=== PATIENT | female | born 1950 | race Caucasian/White ===

== ENCOUNTER 2019-10-24 08:42 | Outpatient (CLI) | payer MEDICARE, SELFPAY ==
--- NOTE | ~2019-10-24 | DEXA_ITS ---
Bone Density Report Name: Mouna Sahu Age: 69 Sex: Female Ethnicity: White Date of : 1950 Indication: postmenopausal; height loss; prior fracture; cancer; hysterectomy; Referring Provider: SANCHO CATHERINE Study: Bone densitometry was performed. Exam Date: October 24, 2019 Accession number: [id number] Bone Density: Region BMD T-score Z-score Classification AP Spine (L1-L4) 0.932 -1.0 1.0 Normal Femoral Neck (Left) 0.648 -1.8 -0.1 Osteopenia Total Hip (Left) 0.808 -1.1 0.3 Osteopenia Total Hip Bilateral Avg 0.825 -1.0 0.5 Osteopenia Femoral Neck (Right) 0.735 -1.0 0.7 Normal Total Hip (Right) 0.841 -0.8 0.6 Normal World Health Organization criteria for BMD impression classify patients as: Normal (T-score at or above -1.0), Osteopenia (T-score between -1.0 and -2.5), or Osteoporosis (T-score at or below -2.5). 10-year Fracture Risk(1): Major Osteoporotic Fracture 16% Hip Fracture 2.4% Reported Risk Factors: [place] (), Neck BMD=0.648, BMI=27.9, previous fracture (1) FRAX(R) Version 3.08. Fracture probability calculated for an untreated patient. Fracture probability may be lower if the patient has received treatment. Clinical Information Provided by Patient: Has had a low trauma fracture Has used the following medications: Vitamin D, Calcium Has the following medical conditions: Cancer, Hysterectomy Patient maximum height was 68 Menopause Age: 54 Drinks caffeinated beverages Onset of menses at age 13 Number of children 2 Impression: The patient has low bone mass, based on the Left Femoral Neck T-score. The patient has an estimated ten-year risk of hip fracture of 2.4% and an estimated ten-year risk of major fracture of 16%, based on the WHO FRAX algorithm. The patient has risk factors, including: previous fracture. Discussion: BONE DENSITY IS LOW AT ONE OR MORE SKELETAL SITES. This patient's lowest T-score is low at one or more skeletal sites. It meets the World Health Organization's (WHO) criteria for ?low bone mass? (T-score between -1.0 and -2.5). The patient's 10-year risk of fracture as calculated by FRAX is less than the threshold where pharmacological therapy is recommended by the National Osteoporosis Foundation (NOF). However, all treatment decisions require clinical judgment and consideration of individual patient factors, including patient preferences, comorbidities, previous drug use, risk factors not captured in the FRAX model (e.g., frailty, falls, vitamin D deficiency, increased bone turnover, interval significant decline in bone density) and possible under or overestimation of fracture risk by FRAX. The patient should follow a healthful lifestyle (good nutrition with adequate calcium and vitamin D, and appropriate weight-bearing exercise). Follow-Up: [facility]
--- NOTE | ~2019-10-24 | MM_ITS ---
EXAMINATION: MM scrn debbie implant LT w crystal HISTORY: Screening mammogram TECHNIQUE: Craniocaudal and mediolateral oblique 3-D tomosynthesis images with implant displacement a nd synthetic 2-D images were generated. Craniocaudal and mediolateral oblique views of the left breas t without implant displacement were obtained using full field digital mammography. CAD analysis was s ubmitted and interpreted. COMPARISON: Comparison to multiple prior studies sequentially, with oldest reviewed study dated 12/2015. BREAST PARENCHYMAL COMPOSITION: There are scattered areas of fibroglandular density. FINDINGS: There is a subpectoral silicone implant. There is no evidence of suspicious mass, calcifica tion, or architectural distortion to suggest malignancy in either breast. There has been no suspiciou s interval change. IMPRESSION: 1. No mammographic evidence of malignancy. 2. Recommend routine screening mammography in one year. BI-RADS Category 1: Negative Reviewed, dictated and finalized at location A. 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
== END 2019-10-24 08:43 | disposition home or self-care (01) ==
PROVIDERS: PCP Family Medicine; Visit Provider Obstetrics & Gynecology Gynecology
DX: Z12.31 Encounter for screening mammogram for malignant neoplasm of breast (principal); Z78.0 Asymptomatic menopausal state; M85.89 Other specified disorders of bone density and structure, multiple sites
CPT/HCPCS: 77063; 77067; 77080

== ENCOUNTER 2020-03-03 14:29 | Outpatient (CLI) | payer MEDICARE, SELFPAY ==
--- NOTE | ~2020-03-03 | MR_ITS ---
EXAMINATION: MR knee LT wo con DATE: 03/03/2020 15:34 INDICATION: Unilateral primary osteoarthritis, left knee. TECHNIQUE: Magnetic resonance imaging (MRI) of the left knee was performed without intravenous contra st. Sequences included axial PD-weighted FS FSE, coronal PD-weighted FSE and PD-weighted FS FSE, sagi ttal PD-weighted FSE, and sagittal T2-weighted FS FSE. COMPARISON: Left knee radiographs 01/14/2020 FINDINGS: Medial compartment: There is a horizontal tear of posterior horn of medial meniscus. There is cartilage surface irregular ity of tibial condyle. There is shallow partial-thickness cartilage loss of femoral condyle involving the medial, central, lateral, and posterior articular surface. Lateral compartment: Lateral meniscus is normal. There is shallow partial-thickness cartilage loss of tibial condyle invol ving the medial and central articular surface. There is cartilage surface irregularity of femoral con dyle. Patellofemoral compartment: There is near full-thickness cartilage loss of patellar medial facet, median ridge, and medial aspect of lateral facet. There is full-thickness cartilage loss of central and medial trochlea. Ligaments and tendons: The anterior and posterior cruciate ligaments are normal. There are changes of prior sprains of media l collateral ligament and fibular collateral ligament characterized by thickening and increased signa l intensity proximally. The patellar tendon is normal. Fluid: There is a small knee joint effusion. There is a small Cramer's cyst. There is mild prepatellar bursit is. IMPRESSION: 1. Severe chondrosis of patellofemoral compartment and mild chondrosis of medial and lateral compartm ents. 2. Tear of medial meniscus. 3. Small knee joint effusion. 4. Small Cramer's cyst. Reviewed, dictated and finalized at location A. IMPRESSION: 1. Severe chondrosis of patellofemoral compartment and mild chondrosis of media l and lateral compartments. 2. Tear of medial meniscus. 3. Small knee joint effusion. 4. Small Cramer's cyst.
== END 2020-03-03 14:30 | disposition home or self-care (01) ==
PROVIDERS: PCP Family Medicine; Visit Provider Orthopaedic Surgery
DX: M17.12 Unilateral primary osteoarthritis, left knee (principal); M25.462 Effusion, left knee; M71.22 Synovial cyst of popliteal space [Baker], left knee; S83.242A Other tear of medial meniscus, current injury, left knee, initial encounter; X58.XXXA Exposure to other specified factors, initial encounter
CPT/HCPCS: 73721

== ENCOUNTER 2020-03-10 12:52 | Outpatient (CLI) | payer MEDICARE, SELFPAY ==
--- NOTE | 2020-03-10 12:54 | ECG_ITS ---
Measurements Intervals [place] Rate: 63 P: 26 [place]: 174 QRS: -23 QRSD: 85 T: 30 QT: 424 QTc: 435 Interpretive Statements SINUS RHYTHM RSR' IN V1 OR V2, CONSIDER RIGHT VENTRICULAR HYPERTROPHY OR RIGHT VCD LOW QRS VOLTAGE IN PRECORDIAL LEADS BASELINE ARTIFACT- II, III, AVL, AVF, V4-V6 BORDERLINE ECG Electronically Signed On 03-10-2020 13:33:48 CDT by Barak Connor D.O.
== END 2020-03-10 12:53 | disposition home or self-care (01) ==
LOC: ANHSURGERY 12:54
PROVIDERS: PCP Family Medicine; Visit Provider Orthopaedic Surgery
DX: E78.5 Hyperlipidemia, unspecified (principal); R94.31 Abnormal electrocardiogram [ECG] [EKG]
CPT/HCPCS: 93005

== ENCOUNTER 2020-03-13 01:04 | Outpatient (CLI) | payer MEDICARE, SELFPAY ==
[2020-03-13 20:05] LABS: SARS-CoV-2 RNA PCR Negative
== END 2020-03-13 01:05 | disposition home or self-care (01) ==
LOC: ANHCOVIDDT 01:05
PROVIDERS: Visit Provider Orthopaedic Surgery
DX: Z01.818 Encounter for other preprocedural examination (principal); Z11.59 Encounter for screening for other viral diseases
CPT/HCPCS: 87635; C9803; U0003

== ENCOUNTER 2020-03-16 00:49 | Day surgery (SDC) | payer MEDICARE, SELFPAY ==
[2020-03-09 13:37] VITALS: BMI 27.5
[2020-03-16] VITALS (8 sets, daily range): BP systolic 106–163; BP diastolic 63–78; PULSE 51–65; RESP 9–16; TEMP 36.2–36.5; O2SAT 98–100
[2020-03-16] MEDS: LACTATED RINGERS 1,000 ML 30 ML IV CONT ×2 (07:50→11:06)
[2020-03-16] MEDS: KETOROLAC 15 MG/ML VIAL (*BKC) IV PUSH (08:06)
[2020-03-16] MEDS: ACETAMINOPHEN 500 MG TABLET 1000 MG PO (08:06)
--- NOTE | 2020-03-16 08:07 | WPDANESEPPF ---
Anes - Initial Pre Proc Eval Procedure: Operation Date: 03/16/20 09:30 Proposed Procedures p Left Knee Arthroscopy, Meniscectomy - Derik Wheatley MD Date/Time: 03/16/20 08:07 Surgeon: Derik Wheatley MD Pre Op Diagnosis: Left Knee Medial Meniscal Tear Patient Data Age: 69 Gender: F Height: 1.68 m Weight: 79.3 kg Allergies Allergy/AdvReac Type Severity Reaction Status Date / Time No Known Drug Allergies Allergy Unknown Unknown Verified 03/16/20 07:28 Home Medications Medication Instructions Recorded Confirmed Type cholecalciferol (vitamin D3) 25 1,000 unit PO BID 07/30/19 03/16/20 History mcg (1,000 unit) capsule calcium 650 mg-vitamin D3 12.5 1 tablet PO BID 01/14/20 03/16/20 History mcg-vitamin K 40 mcg chewable tablet docusate sodium 100 mg tablet 100 mg PO DAILY 01/14/20 03/16/20 History multivitamin 1 tablet PO DAILY 01/14/20 03/16/20 History fluoxetine 20 mg capsule 20 mg PO QAM #90 cap 01/29/20 03/16/20 Rx atorvastatin 10 mg PO HS 03/09/20 03/16/20 History dextrin [Fiber (dextrin)] 2 tsp PO DAILY 03/09/20 03/16/20 History lorazepam 2 mg PO QAM PRN 03/09/20 03/16/20 History Patient hx anesthesia problems: none Family hx anesthesia problems: none PMFSH Past Medical History Medical History (Updated 03/16/20 @ 08:07 by Joseph Pompa DO) Anemia Anxiety BMI 26.0-26.9,adult BMI 27.0-27.9,adult Breast cancer Encounter for breast reconstruction following mastectomy Fallen bladder Hair thinning History of hysteroscopy Hyperlipidemia Vitamin D deficiency Surgical History Surgical History H/O dilation and curettage H/O thumb surgery H/O toe surgery H/O: hysterectomy History of mastectomy Hx of LASIK Hx of tonsillectomy Social History Social History Smoking status: Former smoker Second hand tobacco smoke exposure: No Smoking end date: 08/21/79 Additional smoking assessment comments: 1 1/2PK/DAY FOR 14 YRS, STOPPED 1979 Alcohol intake: never Substance use: never Substance use type: does not use Living arrangements: with family Additional living arrangements comments: [place] - Gender identity (if verbalized by the patient): Female Spiritual care concerns: No Anes - Eval Final PreProcedure Day of Procedure 03/16/20 08:07 Patient weight: overweight Heart: regular rate and rhythm Lungs: clear to auscultation and normal air movement Airway: Mallampati scale class II Neurological: alert and oriented Last oral intake: >/= 8 hours ASA classification: II Emergent: no Anesthetic plan: proceed Anesthesia type and monitoring: general LMA and standard monitoring Informed Consent: The patient's anesthetic plan and its attendant risks and benefits were discussed with the patient/family/POA. Questions were solicited and answers provided to the satisfaction of the patient/family/POA.
[2020-03-16] MEDS: FAMOTIDINE 20 MG/2 ML VIAL IV PUSH (08:12)
--- NOTE | 2020-03-16 09:07 | WPDHPUPDATE1 ---
History and Physical Update Update Date/Time: 03/16/20 09:07 History and Physical has been reviewed, including an updated exam of the patient. There are NO changes in the patient's condition. Risks, benefits, and alternatives have been discussed and questions answered. Patient agrees to proceed with procedure.
[2020-03-16] MEDS: ceFAZolin 2 GM/D5W 50 ML 2 GM/50 ML BAG IVPB (10:05)
--- NOTE | 2020-03-16 11:10 | P.OP_ITS ---
Procedure Note - Detailed Date of procedure: 03/16/20 Pre-op diagnosis: Left Knee Medial Meniscal Tear Post-op diagnosis: same Procedure performed: Left knee arthroscopy partial medial meniscectomy Description of procedure: The patient was identified and proper site identified. She was taken to the operating room and transferred to the OR table placing her supine taking care to pad her torso and extremities. After general anesthetic induction and intubation a nonsterile tourniquet was placed high on the left thigh but was not used. Left lower extremity was positioned, prepped and draped in usual sterile fashion. 10 cc of 1% lidocaine was injected into the subcutaneous tissue in the area of the portals at start of the procedure, and an additional 10 at the end. The portals were established and the arthroscopy was carried out. Articular cartilage in the anterior compartment showed grade 3 and four changes particularly at the proximal pole of the patella. Femoral trochlea had extensive grade 3 changes. Lateral articular me niscal cartilage was in good shape. Anterior posterior cruciate ligaments were in continuity. Extensive grade 2 changes noted the medial compartment on the femoral and tibial side. The medial meniscus had complex tearing from the midbody into the posterior horn. The loose fibrillated cartilage was gently debrided with the shaver. Meniscus was contoured back to a stable rim with basket forceps and shaver. There was some focal inflamed synovium at the medial joint line which was debrided with the shaver and then the ArthroCare Wand used for hemostasis. The knee was flushed with a copious amount of arthroscopic fluid and equipment was removed. Portals were closed with three O nylon suture and a sterile dressing was applied. She tolerated the procedure well. She was awakened, extubated and taken to recovery area in stable condition. There were no known intraoperative complications. Estimated blood loss was negligible. She received perioperative antibiotics. Anesthesia: GLMA Surgeon: Derik Whaetley MD Estimated blood loss (mL): 10 Tourniquet time (min): 0 Drains: No Packing: No Pathology: none sent Complications: No immediate complications Condition: stable Disposition: PACU
== END 2020-03-16 12:46 | disposition home or self-care (01) ==
PROVIDERS: Visit Provider Orthopaedic Surgery
PROC: (CPT 29870; principal; 2020-03-16 09:30)
DX: M23.332 Other meniscus derangements, other medial meniscus, left knee (principal); M94.262 Chondromalacia, left knee; E55.9 Vitamin D deficiency, unspecified; F41.9 Anxiety disorder, unspecified; Z85.3 Personal history of malignant neoplasm of breast; Z87.891 Personal history of nicotine dependence
CPT/HCPCS: 29881; 87635; A9270; C9803; J0690; J1100; J1885; J2250; J2405; J2704; J3010; J7120; U0003

== ENCOUNTER 2020-03-26 12:30 | Outpatient (RCR) | payer MEDICARE, SELFPAY ==
--- NOTE | 2020-03-18 14:25 | PTOPEVAL ---
Thank you for referring Mouna Sahu to [facility]. Please review, sign, date and return this plan of care LINDA. Pt seen this day for initial evaluation following knee surgery on 03/16/20. She presents with impairments consistent with post surgery restriction of her knee. She requires additional skilled therapy 2-3x/wk x 4 wk. I agree with and certify that the following plan of care is medically necessary. Referring Physician Date Attending Provider: Derik Wheatley MD PT evaluation *PT Outpatient Evaluation Start: 03/18/20 13:19 Freq: Status: Active Protocol: Document 03/18/20 13:15 CAP (Rec: 03/18/20 13:48 CAP [id number]) Therapy Assessment Status Assessment Status Assessment Status Evaluation Outpatient Past Medical History Past Medical History Source of Past Medical History Patient,Recalled from Previous Visit, Confirmed with Patient /Family Neurological History Hx Neurological Disorders No Significant History Cardiovascular History Hx Hypercholesterolemia Yes Hx Other Cardiac Disorders Yes: PT DENIES CARDIAC SYMPTOMS - RIDES BIKES, AND WAS WALING 3 MILES DAY Respiratory History Hx Respiratory Disorders No Significant History Gastrointestinal History Hx Other Gastrointestinal Disorders Yes: CONSTIPATION Genitourinary History Hx Bladder Surgery Yes: SLING Musculoskeletal History Hx Arthritis Yes: GENERALIZED Hx Orthopedic Surgery Yes: s/p arthroscopic surgery left knee 03/16/20 Hx Other Musculoskeletal Disorders Yes: LT KNEE MEDIAL MENISCAL TEAR Hematological History Hx Hematological Disorders No Significant History Endocrine History Hx Endocrine Disorders No Significant History HEENT History Hx Tonsillectomy Yes Hx Other HEENT Disorders Yes: BILATERAL HEARING AIDS FOR TINNITIS Integumentary History Hx Skin Disorders No Significant History Reproductive History Hx Hysterectomy Yes Hx Mastectomy Yes: RT BREAST Psychosocial History Hx Anxiety Yes Hx Depression Yes Pain History History of Any Previous or Ongoing No Significant History Instance of Pain Anesthesia History Hx Anesthesia Reactions No Significant History Other History Hx Cancer Yes: RT BREAST Evaluation Information Problem Diagnosis left knee s/p arthroscopic surgery Onset 03/16/20 Cause torn meniscus Subjective Information She is s/p knee surgery. She Query Text:As Reported By Nathalia
--- NOTE | 2020-04-09 12:54 | PCPTNOTE ---
Per pt, her MD requested all therapy visits to be DC. Will DC pt at this time.
--- NOTE | 2020-04-09 12:55 | PCPTNOTE ---
Admitting Provider: Attending Provider: Derik Wheatley MD Patient:Mouna Sahu Date of :1950 Discharge Note Patient has not returned for any further treatments since 03/26/2020, therefore she will be discharged at this time. Discharge therapy per MD request. Patient?s initial visit was on 03/18/2020 13:15 and she had a total of 3 visits. The goals have been not met due to limited therapy visits. Thank you for referring this patient to [facility]. Please review, sign, date and return this discharge summary LINDA. I have been updated about the patient's current status and I agree with discharge from the above service at this time. Referring Physician Date
== END 2020-06-05 12:48 | disposition home or self-care (01) ==
LOC: ANHPT 12:30
PROVIDERS: Visit Provider Orthopaedic Surgery
DX: Z48.89 Encounter for other specified surgical aftercare (principal); Z98.890 Other specified postprocedural states
CPT/HCPCS: 97110; 97112; 97162; 97530

== ENCOUNTER 2020-04-10 08:12 | Outpatient (CLI) | payer MEDICARE, SELFPAY ==
--- NOTE | ~2020-04-10 | US_ITS ---
EXAMINATION: US arterial ankle brachial ind EXAM DATE: 04/10/2020 08:45 INDICATION: Bilateral foot tingling and numbness. Bilateral ankle pain. History of breast cancer. TECHNIQUE: Segmental pressures and plethysmographic and Doppler waveforms of the brachial and lower e xtremity arteries were obtained. There is no prior study for comparison. FINDINGS: Right and left brachial artery pressures of 116 mm Hg and 120 mm Hg, respectively, are concordant (no rmal difference <= 30 mmHg). RIGHT LEG: The ankle-brachial index (ASHLEY) is 1.24 (normal >= 0.9-1). The great toe-brachial index (TBI) is 0.92 (normal >= 0.65). The lower extremity ratios, segmental pressure gradients as follows; Dorsalis pedis: 1.23 (147 mmHg). Posterior tibial: 1.24 (149 mmHg). (Normal gradients <= 20-30 mmHg between adjacent levels on the same leg or the same levels on the two legs). Arterial waveforms are biphasic. LEFT LEG: The ankle-brachial index (ASHLEY) is 1.23 (normal >= 0.9-1). The great toe-brachial index (TBI) is 0.84 (normal >= 0.65). The lower extremity ratios, segmental pressure gradients as follows; Dorsalis pedis: 1.18 (141 mmHg). Posterior tibial: 1.23 (147 mmHg). (Normal gradients <= 20-30 mmHg between adjacent levels on the same leg or the same levels on the two legs). Arterial waveforms are biphasic. IMPRESSION: 1. Right ankle-brachial index 1.24, normal. 2. Left ankle-brachial index 1.23, normal. Reviewed, dictated and finalized at location B.
== END 2020-04-10 08:13 | disposition home or self-care (01) ==
PROVIDERS: PCP Family Medicine; Visit Provider Family Medicine
DX: I73.9 Peripheral vascular disease, unspecified (principal); R20.0 Anesthesia of skin; R20.2 Paresthesia of skin; M25.572 Pain in left ankle and joints of left foot; M25.571 Pain in right ankle and joints of right foot
CPT/HCPCS: 93922

== ENCOUNTER 2020-10-30 08:36 | Outpatient (CLI) | payer MEDICARE, SELFPAY ==
--- NOTE | ~2020-10-30 | MM_ITS ---
EXAMINATION: MM scrn debbie implant LT w crystal HISTORY: Screening mammogram TECHNIQUE: Craniocaudal and mediolateral oblique 3-D tomosynthesis images with implant displacement a nd synthetic 2-D images were generated. Craniocaudal and mediolateral oblique views of the breasts wi thout implant displacement were obtained using full field digital mammography. CAD analysis was submi tted and interpreted. COMPARISON: 10/24/2019, , 02/26/2018 left implant mammogram examinations BREAST PARENCHYMAL COMPOSITION: There are scattered areas of fibroglandular density. FINDINGS: Status post left augmentation mammoplasty. Status post right mastectomy. There is no evidence of suspicious mass, calcification, or architectural distortion to suggest malign ana in either breast. There has been no suspicious interval change. IMPRESSION: 1. No mammographic evidence of malignancy. 2. Recommend routine screening mammography in one year. BI-RADS Category 1: Negative Reviewed, dictated and finalized at location A. 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
== END 2020-10-30 08:37 | disposition home or self-care (01) ==
LOC: ANHIMG 08:37
PROVIDERS: PCP Family Medicine; Visit Provider Obstetrics & Gynecology Gynecology
DX: Z12.31 Encounter for screening mammogram for malignant neoplasm of breast (principal)
CPT/HCPCS: 77063; 77067

== ENCOUNTER 2021-05-28 01:33 | Day surgery (SDC) | payer MEDICARE, SELFPAY ==
[2021-05-19 08:53] VITALS: BMI 28.3
[2021-05-28] MEDS: LACTATED RINGERS 1,000 ML 30 ML IV CONT (06:40)
[2021-05-28 07:15] VITALS: BP 138/76; PULSE 96; RESP 16; TEMP 36.6; O2SAT 96
--- NOTE | 2021-05-28 07:18 | WPDHPUPDATE1 ---
History and Physical Update Update Date/Time: 05/28/21 07:18 History and Physical has been reviewed, including an updated exam of the patient. There are NO changes in the patient's condition. Risks, benefits, and alternatives have been discussed and questions answered. Patient agrees to proceed with procedure.
--- NOTE | 2021-05-28 07:19 | WPDANESEPPF ---
Anes - Initial Pre Proc Eval Procedure: Operation Date: 05/28/21 07:30 Proposed Procedures p Excision Lipoma Bilateral Ankles, - Tad Chandler JR, MD s Hammer Toe Repair Second Toe Right Foot with Flexor Tenotomy - Tad Chandler JR, MD Date/Time: 05/28/21 07:20 Surgeon: Tad Chandler JR, MD Pre Op Diagnosis: lipoma bilat ankles,hammer toe 2nd dig rt foot Patient Data Age: 71 Gender: F Height: 1.68 m Weight: 79.54 kg Allergies Allergy/AdvReac Type Severity Reaction Status Date / Time No Known Drug Allergies Allergy Unknown Unknown Verified 05/28/21 07:13 Home Medications Medication Instructions Recorded Confirmed Type cholecalciferol (vitamin D3) 25 1,000 unit PO BID 07/30/19 05/28/21 History mcg (1,000 unit) capsule multivitamin 1 tablet PO DAILY 01/14/20 05/28/21 History calcium carbonate 600 mg calcium 600 mg PO BID 08/05/20 05/28/21 History (1,500 mg) tablet lorazepam 1 mg tablet 1 mg PO TID PRN #90 tablet 12/11/20 05/28/21 Rx atorvastatin 10 mg tablet 10 mg PO HS #90 tablet 03/01/21 05/28/21 Rx fluoxetine 20 mg QAM 05/19/21 05/28/21 History Patient hx anesthesia problems: none Family hx anesthesia problems: none Results Review: All pre-operative results and documents have been reviewed as part of the pre-operative evaluation. [facility] Past Medical History Medical History (Updated 02/25/21 @ 10:54 by Familia Abad MD) Alopecia areata Anemia Anxiety BMI 26.0-26.9,adult BMI 27.0-27.9,adult Breast cancer Encounter for breast reconstruction following mastectomy Fallen bladder Hair thinning HTN (hypertension), benign Hypercalcemia Hyperkalemia Hyperlipidemia LDL goal <100 Kidney disease, chronic, stage III (moderate, EGFR 30-59 ml/min) Osteoarthritis of thoracic spine Overweight (BMI 25.0-29.9) Postmenopausal (~2003) Varicose veins of bilateral lower extremities with pain Vitamin D deficiency Surgical History Surgical History H/O dilation and curettage H/O thumb surgery H/O toe surgery H/O: hysterectomy History of hysteroscopy History of mastectomy Hx of LASIK Hx of tonsillectomy Status post arthroscopy of left knee surgery February 2020 Family History Family History Mother Family history of elevated blood lipids Asthma Thyroid disease Sibling Thyroid disease Father Alcoholism Son Anxiety Social History Social History (Updated 02/25/21 @ 10:37 by Erinn Holman [facility]) Smoking status: Former smoker Tobacco type: cigarettes Second hand tobacco smoke exposure: No Smoking end date: 08/21/79 Additional smoking assessment comments: STATES 1 1/2PK/DAY/14YRS-QUIT 1979 Alcohol intake: never Substance use: never Substance use type: does not use Living arrangements: with family Additional living arrangements comments: [place] - Gender identity (if verbalized by the patient): Female Spiritual care concerns: No Anes - Eval Final PreProcedure Day of Procedure 05/28/21 07:20 Patient weight: overweight Heart: regular rate and rhythm Lungs: clear to auscultation Airway: Mallampati scale class II Neurological: alert and oriented Last oral intake: >/= 8 hours ASA classification: III Emergent: no Anesthetic plan: proceed Anesthesia type and monitoring: general GIVS and standard monitoring Results Review: All pre-operative results and documents have been reviewed as part of the pre-operative evaluation. Informed Consent: The patient's anesthetic plan and its attendant risks and benefits were discussed with the patient/family/POA. Questions were solicited and answers provided to the satisfaction of the patient/family/POA.
[2021-05-28] MEDS: ceFAZolin 2 GM/D5W 50 ML 2 GM/50 ML BAG IVPB (07:24)
[2021-05-28] MEDS: BUPIVACAINE HCL 0.5% PF 30 ML VIAL 10 ML INFILTRATE (07:51)
[2021-05-28] MEDS: LIDOCAINE HCL 2% PF INJ 5 ML VIAL 10 ML INFILTRATE (07:53)
[2021-05-28 08:30] VITALS: BP 135/73; PULSE 70; RESP 16; O2SAT 94
--- NOTE | 2021-05-28 08:40 | W.PM.PROC2 ---
Procedure Note - Detailed Date of Procedure 05/28/21 Pre-op Diagnosis Painful lipoma bilateral ankles Hammer toe 2nd digit Right foot Post-op Diagnosis same Procedure Performed 1. Excision Lipoma bilateral ankle 2. Hammertoe repair 2nd digit right foot with flexor tenotomy Surgeon Tad Chandler JR, DPM Anesthesia MAC and local Description of Procedure PROCEDURE IN DETAIL: Under mild sedation, the patient was brought into the operating room, placed on the operating table in supine position. A pneumatic ankle tourniquet was placed about the patient's ankle. Following general anesthesia, a local anesthetic block was obtained about bilateral foot and ankle utilizing 20 cc of a 1:1 of 2% Lidocaine plain and 0.5% Marcaine plain. The foot was then scrubbed, prepped, and draped in the usual aseptic manner. An Esmarch bandage was then used to exsanguinate the patient's foot and the pneumatic calf tourniquet was then inflated bilaterally. Surgery began in the following manner: Attention was directed to the lateral aspect of the anterior lateral right ankle measuring 6cm in length The incision was continued deep down through the subcutaneous tissues using sharp and blunt dissection. All bleeders were cauterized as necessary. At this point, A large lipomatous mass was noted to the ankle it was excised with a rongeur and sent for gross and histopathology. No remnants of the mass were noted, I did protect the neurovascular structures. The operative site was flushed with copious amount of sterile saline. Finally, the subcutaneous structures were reapproximated with 4-0 Vicryl. Next, the skin was reapproximated and coapted utilizing 4-0 Monocryl in running subcuticular suture fashion technique. The exact procedure was duplicated for the left ankle. Next, I made a small 2mm incision with a 6400 blade along the contracted 2nd digit. The long flexor tendon was released. The contracture was reduced. The stab incision was closed with 4-0 Prolene. A band Aid was applied to the affected digit. Upon completion of the procedure, the incision was dressed with Steri-Strips, Adaptic, 4x4s, Kerlix, and Coban. The pneumatic calf tourniquet was then deflated and a prompt hyperemic response was noted to all digits of the foot. A surgical shoe was then applied to the affected lower extremity. It is important to note that Dr. Chandler was present throughout the procedure. The patient did very well with the procedure and the anesthesia. The patient was transferred to the recovery room with vital signs stable and vascular status intact to all toes of the foot. Following a period of postoperative monitoring, the patient will be discharged home on the following written and oral postoperative instructions: 1. Keep the dressing clean, dry, and intact. 2. The patient to be protected weight bearing with a surgical shoe. 3. The patient should ice and elevate the affected foot when at rest. 4. The patient should contact Dr. Chandler for all postop care and if any problems should arise. The patient will follow up in one week for the post op visit. 5. Prescriptions were written for Percocet 5/325, dispensed 40 to be taken 1 p.o. q.4-6 hours as needed for severe pain. Furthermore, the patient should take Aspirin 325 once daily for two weeks to prevent DVT. Estimated Blood Loss 1 Drains No Packing No Pathology yes Complications No immediate complications Condition stable Disposition same day
[2021-05-28 09:00] VITALS: BP 132/81; PULSE 59; RESP 16
[2021-05-28] MEDS: IBUPROFEN 400 MG TABLET PO (09:02)
== END 2021-05-28 09:18 | disposition home or self-care (01) ==
PROVIDERS: PCP Family Medicine; Visit Provider Podiatrist Foot & Ankle Surgery
PROC: (CPT 27632; principal; 2021-05-28 07:30)
PROC: (CPT 27632; 2021-05-28 07:30)
DX: D17.23 Benign lipomatous neoplasm of skin and subcutaneous tissue of right leg (principal); D17.24 Benign lipomatous neoplasm of skin and subcutaneous tissue of left leg; M20.41 Other hammer toe(s) (acquired), right foot; D64.9 Anemia, unspecified; E87.5 Hyperkalemia; I12.9 Hypertensive chronic kidney disease with stage 1 through stage 4 chronic kidney disease, or unspecified chronic kidney disease; N18.30 Chronic kidney disease, stage 3 unspecified; E55.9 Vitamin D deficiency, unspecified; Z87.891 Personal history of nicotine dependence; L63.9 Alopecia areata, unspecified
CPT/HCPCS: 27632; 27236; 28010; 88304; A9270; J0690; J1100; J2250; J2405; J2704; J3010; J7120

== ENCOUNTER 2021-11-10 09:54 | Outpatient (CLI) | payer MEDICARE, SELFPAY ==
--- NOTE | ~2021-11-10 | MM_ITS ---
EXAMINATION: MM scrn debbie implant LT w crystal HISTORY: Screening mammogram TECHNIQUE: Craniocaudal and mediolateral oblique 3-D tomosynthesis images with implant displacement a nd synthetic 2-D images were generated. Craniocaudal and mediolateral oblique views of the breasts wi thout implant displacement were obtained using full field digital mammography. CAD analysis was submi tted and interpreted. COMPARISON: No prior mammogram is available for comparison at this institution. BREAST PARENCHYMAL COMPOSITION: There are scattered areas of fibroglandular density. FINDINGS: History of right mastectomy for breast malignancy, 2003. Status post left augmentation mammoplasty. There is no evidence of suspicious mass, calcification, or architectural distortion to suggest malign ana in either breast. There has been no suspicious interval change. IMPRESSION: 1. No mammographic evidence of malignancy. 2. Recommend routine screening mammography in one year. BI-RADS Category 1: Negative Reviewed, dictated and finalized at location A.
== END 2021-11-10 09:55 | disposition home or self-care (01) ==
LOC: ANHIMG 09:55
PROVIDERS: PCP Family Medicine; Visit Provider Obstetrics & Gynecology Gynecology
DX: Z12.31 Encounter for screening mammogram for malignant neoplasm of breast (principal)
CPT/HCPCS: 77063; 77067

== ENCOUNTER 2022-11-03 00:37 | Day surgery (SDC) | payer MEDICARE, SELFPAY ==
[2022-10-24 14:07] VITALS: BMI 28.4
[2022-11-03 06:21] VITALS: BP 148/82; PULSE 70; RESP 20; TEMP 36.3; O2SAT 98; BMI 30.4
[2022-11-03] MEDS: LACTATED RINGERS 1,000 ML 150 ML IV CONT (06:29)
--- NOTE | 2022-11-03 07:29 | PM.HPGS ---
History of Present Illness History of Present Illness Consent: Risks, benefits, and alternatives have been discussed and questions answered. Patient agrees to proceed with procedure. Chief complaint: neoplasm screening Narrative: Mouna Sahu is a 72 year old female Presents for screening colonoscopy. Patient's current weight appetite bowel movements are normal. Patient denies abdominal pain. She has had no bleeding. Family history noncontributory. Patient denies any blood in her stools. Occasionally has bouts of fecal incontinence. Weight has remained stable. Has been 10 years since last screening exam. Review of Systems Review of Systems: Review of systems noncontributory. [facility] Past Medical History Medical History (Updated 11/03/22 @ 07:31 by Caleb Zayas MD) Alopecia areata Anemia Anxiety Arthritis of carpometacarpal (CMC) joint of right thumb BMI 26.0-26.9,adult BMI 27.0-27.9,adult Breast cancer Encounter for breast reconstruction following mastectomy Fallen bladder Hair thinning HTN (hypertension), benign Hypercalcemia Hyperkalemia Hyperlipidemia LDL goal <100 Kidney disease, chronic, stage III (moderate, EGFR 30-59 ml/min) Osteoarthritis of thoracic spine Overweight (BMI 25.0-29.9) Postmenopausal (~2003) Radial styloid tenosynovitis of right hand Varicose veins of bilateral lower extremities with pain Vitamin D deficiency Surgical History Surgical History H/O dilation and curettage H/O thumb surgery H/O toe surgery H/O: hysterectomy (~2010) History of hysteroscopy History of mastectomy (~2003) right Hx of LASIK Hx of tonsillectomy Status post arthroscopy of left knee surgery February 2020 Family History Family History Mother Family history of elevated blood lipids Asthma Thyroid disease Sibling Thyroid disease Father Alcoholism Son Anxiety Social History Social History Smoking status: Never smoker Tobacco type: cigarettes Second hand tobacco smoke exposure: No Smoking end date: 08/21/79 Additional smoking assessment comments: STATES 1 1/2PK/DAY/14YRS-QUIT 1979 Alcohol intake: never Substance use: never Substance use type: does not use Lack of Transportation: No Lack of Food: Never True Current Housing: I Have Housing Concerned About Future Housing: No Difficulty Paying Gas/Electric Bills: No Difficulty Paying for Meds: No Currently Unemployed: No Education: High School Diploma/GED Living arrangements: with family Additional living arrangements comments: [place] - Occupation/Education: retired Gender identity (if verbalized by the patient): Female Spiritual care concerns: No Meds Home Medications and Allergies Home Medications Medication Instructions Recorded Confirmed Type cholecalciferol (vitamin D3) 25 1,000 unit PO BID 07/30/19 10/27/22 History mcg (1,000 unit) capsule multivitamin 1 tablet PO DAILY 01/14/20 10/27/22 History calcium carbonate 600 mg calcium 600 mg PO BID 08/05/20 10/27/22 History (1,500 mg) tablet (Calcium) atorvastatin 10 mg tablet 10 mg PO HS #90 tabs 02/24/22 10/27/22 Rx lorazepam 1 mg tablet 1 mg PO TID PRN anxiety #90 tabs 06/13/22 10/27/22 Rx fluoxetine 20 mg capsule 20 mg PO QAM #90 caps 07/22/22 10/27/22 Rx amlodipine 2.5 mg tablet 2.5 mg PO DAILY #90 tabs 09/12/22 10/27/22 Rx fluticasone propionate 50 2 spray intranasal DAILY #16 grams 09/12/22 10/27/22 Rx mcg/actuation nasal spray,suspension (Flonase Allergy Relief) omeprazole 20 mg capsule,delayed 20 mg PO DAILY #90 caps 09/12/22 10/27/22 Rx release docusate sodium 100 mg capsule 100 mg PO DAILY 10/27/22 11/03/22 History Allergies Allergy/AdvReac Type Severity Reaction Status Date / Time No Known Drug Allergies Allergy Unknown Unknown Verified 10/19
--- NOTE | 2022-11-03 07:34 | WPDANESEPPF ---
Anes - Initial Pre Proc Eval Procedure: Operation Date: 11/03/22 07:30 Proposed Procedures p Screening Colonoscopy - Caleb Zayas MD Date/Time: 11/03/22 07:34 Surgeon: Caleb Zayas MD Pre Op Diagnosis: neoplasm screening Patient Data Age: 72 Gender: F Height: 1.68 m Weight: 85.4 kg Last Vital Signs Temp 97.3 F L 11/03/22 06:21 Pulse 70 11/03/22 06:21 Resp 20 11/03/22 06:21 BP 148/82 H 11/03/22 06:21 Pulse Ox 98 11/03/22 06:21 O2 Del Method Room Air 11/03/22 06:21 Allergies Allergy/AdvReac Type Severity Reaction Status Date / Time No Known Drug Allergies Allergy Unknown Unknown Verified 11/03/22 06:20 Home Medications Medication Instructions Recorded Confirmed Type cholecalciferol (vitamin D3) 25 1,000 unit PO BID 07/30/19 10/27/22 History mcg (1,000 unit) capsule multivitamin 1 tablet PO DAILY 01/14/20 10/27/22 History calcium carbonate 600 mg calcium 600 mg PO BID 08/05/20 10/27/22 History (1,500 mg) tablet (Calcium) atorvastatin 10 mg tablet 10 mg PO HS #90 tabs 02/24/22 10/27/22 Rx lorazepam 1 mg tablet 1 mg PO TID PRN anxiety #90 tabs 06/13/22 10/27/22 Rx fluoxetine 20 mg capsule 20 mg PO QAM #90 caps 07/22/22 10/27/22 Rx amlodipine 2.5 mg tablet 2.5 mg PO DAILY #90 tabs 09/12/22 10/27/22 Rx fluticasone propionate 50 2 spray intranasal DAILY #16 grams 09/12/22 10/27/22 Rx mcg/actuation nasal spray,suspension (Flonase Allergy Relief) omeprazole 20 mg capsule,delayed 20 mg PO DAILY #90 caps 09/12/22 10/27/22 Rx release docusate sodium 100 mg capsule 100 mg PO DAILY 10/27/22 11/03/22 History Patient hx anesthesia problems: none Family hx anesthesia problems: none Results Review: All pre-operative results and documents have been reviewed as part of the pre-operative evaluation. [facility] Past Medical History Medical History (Updated 11/03/22 @ 07:31 by Caleb Zayas MD) Alopecia areata Anemia Anxiety Arthritis of carpometacarpal (CMC) joint of right thumb BMI 26.0-26.9,adult BMI 27.0-27.9,adult Breast cancer Encounter for breast reconstruction following mastectomy Fallen bladder Hair thinning HTN (hypertension), benign Hypercalcemia Hyperkalemia Hyperlipidemia LDL goal <100 Kidney disease, chronic, stage III (moderate, EGFR 30-59 ml/min) Osteoarthritis of thoracic spine Overweight (BMI 25.0-29.9) Postmenopausal (~2003) Radial styloid tenosynovitis of right hand Varicose veins of bilateral lower extremities with pain Vitamin D deficiency Surgical History Surgical History H/O dilation and curettage H/O thumb surgery H/O toe surgery H/O: hysterectomy (~2010) History of hysteroscopy History of mastectomy (~2003) right Hx of LASIK Hx of tonsillectomy Status post arthroscopy of left knee surgery February 2020 Family History Family History Mother Family history of elevated blood lipids Asthma Thyroid disease Sibling Thyroid disease Father Alcoholism Son Anxiety Social History Social History Smoking status: Never smoker Tobacco type: cigarettes Second hand tobacco smoke exposure: No Smoking end date: 08/21/79 Additional smoking assessment comments: STATES 1 1/2PK/DAY/14YRS-QUIT 1979 Alcohol intake: never Substance use: never Substance use type: does not use Lack of Transportation: No Lack of Food: Never True Current Housing: I Have Housing Concerned About Future Housing: No Difficulty Paying Gas/Electric Bills: No Difficulty Paying for Meds: No Currently Unemployed: No Education: High School Diploma/GED Living arrangements: with family Additional living arrangements comments: [place] - Occupation/Education: retired Gender identity (if verbalized by the patient): Female Spiritual care concerns: No Anes - Ev
[2022-11-03 07:52] VITALS: BP 129/72; PULSE 68; RESP 19; O2SAT 97
[2022-11-03 08:02] VITALS: BP 127/80; PULSE 65; RESP 21; O2SAT 98
[2022-11-03 08:12] VITALS: BP 148/87; PULSE 57; RESP 24; O2SAT 96
== END 2022-11-03 08:24 | disposition home or self-care (01) ==
PROVIDERS: PCP Family Medicine; Visit Provider Internal Medicine Gastroenterology
PROC: 0DJD8ZZ Inspection of Lower Intestinal Tract, Via Natural or Artificial Opening Endoscopic (ICD-10-PCS; CPT 45378; principal; 2022-11-03 07:30)
DX: Z12.11 Encounter for screening for malignant neoplasm of colon (principal); D12.4 Benign neoplasm of descending colon; K64.8 Other hemorrhoids; K57.30 Diverticulosis of large intestine without perforation or abscess without bleeding; E55.9 Vitamin D deficiency, unspecified; E78.5 Hyperlipidemia, unspecified; I12.9 Hypertensive chronic kidney disease with stage 1 through stage 4 chronic kidney disease, or unspecified chronic kidney disease; N18.30 Chronic kidney disease, stage 3 unspecified; Z85.3 Personal history of malignant neoplasm of breast; F41.9 Anxiety disorder, unspecified; D64.9 Anemia, unspecified; Z87.891 Personal history of nicotine dependence; E66.9 Obesity, unspecified; Z68.30 Body mass index [BMI] 30.0-30.9, adult
CPT/HCPCS: 45385; 88305; J2704; J7120

== ENCOUNTER 2022-12-17 08:30 | Outpatient (CLI) | payer MEDICARE, SELFPAY ==
--- NOTE | ~2022-12-17 | DEXA_ITS ---
Bone Density Report Name: RAMIN MORTON Age: 72 Sex: Female Ethnicity: White Date of : 1950 Indication: osteopenia; height loss; prior fracture; cancer; postmenopausal Referring Provider: SANCHO CATHERINE Study: Bone densitometry was performed. Exam Date: December 17, 2022 Accession number: [id number] Bone Density: Region BMD T-score Z-score Classification AP Spine(L1-L4) 0.917 -1.2 1.0 Osteopenia Femoral Neck (Left) 0.669 -1.6 0.3 Osteopenia Total Hip (Left) 0.771 -1.4 0.2 Osteopenia Femoral Neck (Right) 0.734 -1.0 0.9 Normal Total Hip (Right) 0.820 -1.0 0.6 Normal Total Hip Mean 0.795 -1.2 0.4 Osteopenia World Health Organization criteria for BMD impression classify patients as: Normal (T-score at or above -1.0), Osteopenia (T-score between -1.0 and -2.5), or Osteoporosis (T-score at or below -2.5). 10-year Fracture Risk(1): Major Osteoporotic Fracture 16% Hip Fracture 2.5% Reported Risk Factors: [place] (), Neck BMD=0.669, BMI=31.8, previous fracture (1) FRAX(R) Version 3.08. Fracture probability calculated for an untreated patient. Fracture probability may be lower if the patient has received treatment. Previous Exams: Region Exam Age BMD T-score BMD Change BMD Change Date g/cm2 vs Baseline vs Previous AP Spine (L1-L4) 12/17/2022 72 0.917 -1.2 -0.015 (-1.6%) -0.015 (-1.6%) 10/24/2019 69 0.932 -1.0 Total Hip(Left) 12/17/2022 72 0.771 -1.4 -0.037 (-4.6%) -0.037 (-4.6%) 10/24/2019 69 0.808 -1.1 Total Hip(Right) 12/17/2022 72 0.820 -1.0 -0.022 (-2.6%) -0.022 (-2.6%) 10/24/2019 69 0.841 -0.8 *Denotes significance at 95% confidence level, LSC for AP Spine = 0.022 g/cm2, LSC for Total Hip = 0.027 g/cm2 Clinical Information Provided by Patient: Has had a low trauma fracture Has used the following medications: Vitamin D Has the following medical conditions: Cancer Patient maximum height was 68 Menopause Age: 54 Drinks caffeinated beverages Onset of menses at age 13 Number of children 2 Impression: The patient has low bone mass, based on the Left Femoral Neck T-score. The patient has an estimated ten-year risk of hip fracture of 2.5% and an estimated ten-year risk of major fracture of 16%, based on the WHO FRAX algorithm. The patient has risk factors, including: previous fracture. The BMD for the Total Hip(Left) decreased, changing by -4.6% since the last DXA exam. Tiffanieus
--- NOTE | ~2022-12-17 | MM_ITS ---
EXAMINATION: MM scrn debbie implant LT w crystal HISTORY: EXAMINATION: MM scrn debbie implant LT w crystal HISTORY: Screening left mammogram, history of right mastectomy TECHNIQUE: Craniocaudal and mediolateral oblique 3-D tomosynthesis images with implant displacement a nd synthetic 2-D images were generated. Craniocaudal and mediolateral oblique views of the left breas t without implant displacement were obtained using full field digital mammography. CAD analysis was s ubmitted and interpreted. COMPARISON: 11/10/2021, 10/30/2020, 10/24/2019 BREAST PARENCHYMAL COMPOSITION: There are scattered areas of fibroglandular density. FINDINGS: There is no evidence of suspicious mass, calcification, or architectural distortion to sugg est malignancy. There has been no suspicious interval change. IMPRESSION: 1. No mammographic evidence of malignancy. 2. Recommend routine screening mammography in one year. BI-RADS Category 1: Negative Reviewed, dictated and finalized at location A.
== END 2022-12-17 08:31 | disposition home or self-care (01) ==
LOC: ANHIMG 08:34
PROVIDERS: PCP Family Medicine; Visit Provider Obstetrics & Gynecology Gynecology
DX: Z12.31 Encounter for screening mammogram for malignant neoplasm of breast (principal); Z78.0 Asymptomatic menopausal state; M85.88 Other specified disorders of bone density and structure, other site; M85.852 Other specified disorders of bone density and structure, left thigh; M85.851 Other specified disorders of bone density and structure, right thigh
CPT/HCPCS: 77063; 77067; 77080

== ENCOUNTER 2023-01-16 12:15 | Emergency (ER) | payer MEDICARE, SELFPAY ==
--- NOTE | 2023-01-16 12:24 | ED.WOUNDLAC ---
HPI - Wound/Laceration General Chief Complaint: Wound/Laceration Stated Complaint: FINGER LACERATION Source: patient and RN notes reviewed History of Present Illness HPI narrative: 72 yo F presents to urgent care with complaints of a laceration to her left pinky finger. Pt states she was cutting a frozen banana when the knife slipped. Pt denies any other complaints. Pt is UTD on her tetanus. Related Data Home Medications Medication Instructions Recorded Confirmed cholecalciferol (vitamin D3) 25 1,000 unit PO BID 07/30/19 11/29/22 mcg (1,000 unit) capsule multivitamin 1 tablet PO DAILY 01/14/20 11/29/22 calcium carbonate 600 mg calcium 600 mg PO BID 08/05/20 11/29/22 (1,500 mg) tablet (Calcium) docusate sodium 100 mg capsule 100 mg PO DAILY 10/27/22 11/29/22 fluticasone propionate 50 2 spray intranasal DAILY PRN 11/29/22 11/29/22 mcg/actuation nasal spray,suspension (Flonase Allergy Relief) Allergies Allergy/AdvReac Type Severity Reaction Status Date / Time No Known Drug Allergies Allergy Unknown Unknown Verified 11/29/22 08:55 Review of Systems Review of Systems: CONSTITUTIONAL: Denies fever, chills, or sweats. EYES: Denies visual changes, redness, or discharge. ENT: Denies otalgia and sore throat CARDIOVASCULAR: Denies chest pain, palpitations, or edema. RESPIRATORY: Denies cough or dyspnea. GASTROINTESTINAL: Denies abdominal pain, nausea, vomiting, or diarrhea. GENITOURINARY: Denies dysuria or hematuria. SKIN: left pinky finger laceration MUSCULOSKELETAL: Denies back pain, joint pain, or myalgia. NEUROLOGIC: Denies headache, numbness, or weakness. Pertinent positives per HPI. [facility] Past Medical History Medical History (Updated 01/16/23 @ 12:34 by Mary Payne, HERMINIA) Alopecia areata Anemia Anxiety Arthritis of carpometacarpal (CMC) joint of right thumb BMI 26.0-26.9,adult BMI 27.0-27.9,adult Breast cancer Encounter for breast reconstruction following mastectomy Fallen bladder Hair thinning HTN (hypertension), benign Hypercalcemia Hyperkalemia Hyperlipidemia LDL goal <100 Kidney disease, chronic, stage III (moderate, EGFR 30-59 ml/min) Osteoarthritis of thoracic spine Overweight (BMI 25.0-29.9) Postmenopausal (~2003) Radial styloid tenosynovitis of right hand Varicose veins of bilateral lower extremities with pain Vitamin D deficiency Surgical History Surgical History (Updated 11/29/22 @ 09:31 by Derik Wheatley MD) H/O dilation and curettage H/O thumb surgery 2007 left thumb CMC arthroplasty - [place] H/O toe surgery H/O: hysterectomy (~2010) History of hysteroscopy History of mastectomy (~2003) right Hx of LASIK Hx of tonsillectomy Status post arthroscopy of left knee surgery February 2020 Family History Family History Mother Family history of elevated blood lipids Asthma Thyroid disease Sibling Thyroid disease Father Alcoholism Son Anxiety Social History Social History Smoking status: Former smoker Tobacco type: cigarettes Second hand tobacco smoke exposure: No Smoking end date: 08/21/79 Additional smoking assessment comments: STATES 1 1/2PK/DAY/14YRS-QUIT 1979 Alcohol intake: never Substance use: never Substance use type: does not use Lack of Transportation: No Lack of Food: Never True Current Housing: I Have Housing Concerned About Future Housing: No Difficulty Paying Gas/Electric Bills: No Difficulty Paying for Meds: No Currently Unemployed: No Education: High School Diploma/GED Living arrangements: with family Additional living arrangements comments: [place] - Occupation/Education: retired Gender identity (if verbalized by the patient): Female Spiritual care concerns: No Comments At the time of my signature, I reviewed and agree with the nursing past medical, surgical, social,
[2023-01-16 12:29] VITALS: BP 156/89; PULSE 74; RESP 16; TEMP 36.8; O2SAT 98
== END 2023-01-16 12:41 | disposition home or self-care (01) ==
PROVIDERS: Emergency Provider Nurse Practitioner Family; PCP Family Medicine
DX: S61.217A Laceration without foreign body of left little finger without damage to nail, initial encounter (principal); W26.0XXA Contact with knife, initial encounter; M47.814 Spondylosis without myelopathy or radiculopathy, thoracic region; I12.9 Hypertensive chronic kidney disease with stage 1 through stage 4 chronic kidney disease, or unspecified chronic kidney disease; N18.30 Chronic kidney disease, stage 3 unspecified; I83.93 Asymptomatic varicose veins of bilateral lower extremities; E55.9 Vitamin D deficiency, unspecified
CPT/HCPCS: 12001; 99212; G0463

== ENCOUNTER → 2023-06-08 12:57 | Outpatient (CLI) | payer MEDICARE, SELFPAY ==
--- NOTE | ~2023-06-08 | XR_ITS ---
XR ribs LT 2V w CXR 2V DATE: 06/08/2023 13:25 INDICATION: Fall. TECHNIQUE: PA and lateral chest. 3 views of left ribs. COMPARISON: 05/28/2017 left ribs 08/21/2013 2 view chest FINDINGS: Minimal chronic discoid scarring of the lingula. Borderline heart size. Aortic calcificatio n and tortuosity. No hilar or mediastinal enlargement. No pulmonary infiltrate or consolidation, pleural effusion or pulmonary vascular congestion or pneumo thorax is detected. Osteopenia. No left rib fracture or bone destruction is detected. Diffuse idiopathic skeletal hyperostosis of the thoracic spine. Surgical clips of the right breast. IMPRESSION: No active cardiopulmonary disease Aortic atherosclerosis No left rib fracture is detected Reviewed, dictated and finalized at location L.
== END ==
PROVIDERS: PCP Family Medicine; Visit Provider Family Medicine
DX: R07.89 Other chest pain (principal); I70.0 Atherosclerosis of aorta
CPT/HCPCS: 71046; 71100

== ENCOUNTER 2023-07-01 12:01 | Emergency (ER) | payer MEDICARE, SELFPAY ==
--- NOTE | ~2023-07-01 | XR_ITS ---
EXAMINATION: XR knee LT 3V DATE: 07/01/2023 13:20 INDICATION: Left knee pain. Fall. TECHNIQUE: 3 views of left knee were obtained. COMPARISON: Left knee radiographs 01/14/2020 FINDINGS: Bone alignment is normal. No fracture. There is moderate osteoarthritis of medial compartme nt and mild osteoarthritis of lateral and patellofemoral compartments. No knee joint effusion. IMPRESSION: 1. Moderate left knee osteoarthritis. Reviewed, dictated and finalized at location A. D AIDE
--- NOTE | ~2023-07-01 | XR_ITS ---
EXAMINATION: XR_CERV2-3V_CR DATE: 07/01/2023 13:20 INDICATION: Neck pain. Left shoulder pain. TECHNIQUE: 3 views of cervical spine were obtained. COMPARISON: None. FINDINGS: Bone alignment is normal. Vertebral body heights are normal. There is severely decreased di sc height at C5-C6 and moderately decreased disc height at C6-C7. There is multilevel mild facet join t osteoarthritis. There is multilevel uncovertebral joint osteoarthritis, severe bilaterally at C5-C6 and C6-C7. There is mild central canal stenosis at C5-C6 and C6-C7. No prevertebral soft tissue swel ling. IMPRESSION: 1. Severe cervical spondylosis. Reviewed, dictated and finalized at location A. CLABLE MATERIALS COLLECTOR
[2023-07-01 12:23] VITALS: BP 137/83; PULSE 73; RESP 16; TEMP 37.4; O2SAT 100
--- NOTE | 2023-07-01 12:43 | ED.FALL ---
HPI - Fall General Chief Complaint: Fall Stated Complaint: Fall head/knee pain Time Seen by Provider: 07/01/23 12:44 Source: patient, RN notes reviewed and old records reviewed Mode of arrival: ambulatory Limitations: no limitations History of Present Illness HPI Narrative: 73 year old female who [facility] with complaints of falling today when she went to [employer] at high school. Patient reports that she must of hit her foot on the curb and when she went forward hitting her left lateral eye area on ground and hitting her left knee with abrasion and swelling and some redness noted. Patient denies any LOC at time of fall and also recently had fall on June 07 with injury to her left ribs. Patient reports that she has numbness to her toes and ball of her feet for sometime and she has chronic neck pain that will even awaken her at night. Daughter reports that she feels that her mom is not lifting her feet up enough when she walks. Patient has abrasion along left eyebrow with no measurable depth with some redness noted and minimal swelling MD complaint: fall Onset (ago): hour(s) (this morning at 1130) Fall from: standing Fall witnessed: yes, by family Place fall occurred: street Loss of consciousness: none Symptoms prior to fall: none Location of injury: head (along left eyebrow abrasion) Location of injury - extremities: Left: knee Severity scale (1-10): 3 Associated symptoms (after fall): neck pain (chronic) and other (left knee pain) Related Data Home Medications Medication Instructions Recorded Confirmed cholecalciferol (vitamin D3) 25 1,000 unit PO BID 07/30/19 07/01/23 mcg (1,000 unit) capsule multivitamin 1 tablet PO DAILY 01/14/20 07/01/23 calcium carbonate 600 mg calcium 600 mg PO BID 08/05/20 07/01/23 (1,500 mg) tablet (Calcium) docusate sodium 100 mg capsule 100 mg PO DAILY 10/27/22 07/01/23 Allergies Allergy/AdvReac Type Severity Reaction Status Date / Time No Known Drug Allergies Allergy Unknown Unknown Verified 07/01/23 12:05 Review of Systems Review of Systems: CONSTITUTIONAL: Denies fever, chills, or sweats. EYES: Denies visual changes, redness, or discharge. ENT: Denies rhinorrhea, congestion, sore throat, or otalgia. CARDIOVASCULAR: Denies chest pain, palpitations, or edema. RESPIRATORY: Denies cough or dyspnea. GASTROINTESTINAL: Denies abdominal pain, nausea, vomiting, or diarrhea. GENITOURINARY: Denies dysuria or hematuria. SKIN: Denies rash or itching.abrasion along left eyebrow MUSCULOSKELETAL: reports Chronic neck and back pain, left knee pain , or myalgia. NEUROLOGIC: Denies headache, numbness of bilateral big toes and balls of feet, denies weakness. PSYCHIATRIC: Denies anxiety or depression. All systems reviewed & are unremarkable except as noted in HPI and below PMFSH Past Medical History Medical History Alopecia areata Anemia Anxiety Arthritis of carpometacarpal (CMC) joint of right thumb BMI 26.0-26.9,adult BMI 27.0-27.9,adult Breast cancer Encounter for breast reconstruction following mastectomy Fallen bladder Hair thinning HTN (hypertension), benign Hypercalcemia Hyperkalemia Hyperlipidemia LDL goal <100 Kidney disease, chronic, stage III (moderate, EGFR 30-59 ml/min) Osteoarthritis of thoracic spine Overweight (BMI 25.0-29.9) Postmenopausal (~2003) Radial styloid tenosynovitis of right hand Varicose veins of bilateral lower extremities with pain Vitamin D deficiency Surgical History Surgical History H/O dilation and curettage H/O thumb surgery 2007 left thumb CMC arthroplasty - [place] H/O toe surgery H/O: hysterectomy (~2010) History of hysteroscopy History of mastectomy (~2003) right Hx of LASIK Hx of tonsillectomy Status post arthroscopy of left knee surgery February 2020 Family History Family History (Reviewed 07/03/23 @ 08:10 by Rachna
== END 2023-07-01 14:06 | disposition home or self-care (01) ==
PROVIDERS: Emergency Provider Registered Nurse; PCP Family Medicine
DX: S80.02XA Contusion of left knee, initial encounter (principal); M54.2 Cervicalgia; G89.29 Other chronic pain; S00.212A Abrasion of left eyelid and periocular area, initial encounter; I10 Essential (primary) hypertension; E78.5 Hyperlipidemia, unspecified; Z79.899 Other long term (current) drug therapy; Z85.3 Personal history of malignant neoplasm of breast; Z87.891 Personal history of nicotine dependence; W01.0XXA Fall on same level from slipping, tripping and stumbling without subsequent striking against object, initial encounter; Y92.410 Unspecified street and highway as the place of occurrence of the external cause
CPT/HCPCS: 72040; 73562; 99214; G0463

== ENCOUNTER → 2023-07-24 09:28 | Outpatient (CLI) | payer MEDICARE, SELFPAY ==
--- NOTE | ~2023-07-24 | MR_ITS ---
EXAMINATION: MR brain IAC wo con DATE: 07/24/2023 11:00 INDICATION: Ataxia. Unspecified fall, initial encounter. TECHNIQUE: Magnetic resonance imaging (MRI) of the brain, brainstem, and internal auditory canals was performed without intravenous contrast. COMPARISON: Brain MRI 01/26/2017 FINDINGS: There are scattered areas of nonspecific increased T2-weighted signal intensity in the cere bral white matter and bebo. There is no intracranial hemorrhage, acute infarction, or abnormal intrac ranial mass lesion. The ventricles are normal in size. There is mild mucosal thickening in the ethmoi d sinuses. The internal auditory canals, inner ears, and tympanic cavities are normal. The mastoid ai r cells are normal. The orbits are normal. IMPRESSION: 1. Worsened moderate nonspecific cerebral white matter disease and pontine disease, which likely repr esents chronic small vessel ischemic disease. Reviewed, dictated and finalized at location E. INSPECTOR IMPRESSION: 1. Worsened moderate nonspecific cerebral white matter disease and pontine dise ase, which likely represents chronic small vessel ischemic disease.
--- NOTE | ~2023-07-24 | MR_ITS ---
MRI of the lumbar spine Clinical History: Ataxia Technique: Axial T2-weighted images, and sagittal T1-weighted, T2-weighted, and T2 fat-sat images wer e acquired. Findings: There is no fracture or subluxation of the lumbar spine. Vertebral bodies maintain normal h eight and alignment. No bone marrow signal abnormality seen. At L1-L2, L2-L3, L3-L4, there are minimal disc bulges with mild facet joint degenerative changes. No spinal canal stenosis or neural foraminal narrowing at these levels. At L4-L5, there is mild disc bulge with severe facet arthropathy. No arpan central canal stenosis. Ne ural foramina are preserved. At L5-S1, there is mild disc bulge with moderate facet arthropathy. No central canal stenosis or neur al foraminal narrowing. Paravertebral soft tissues are unremarkable. Impression: Mild degenerative spondylosis, as above. Reviewed, dictated and finalized at [facility]. DULING CLERK Impression: Mild degenerative spondylosis, as above.
== END ==
PROVIDERS: PCP Family Medicine; Visit Provider Family Medicine
DX: R27.0 Ataxia, unspecified (principal); R90.82 White matter disease, unspecified; M47.892 Other spondylosis, cervical region
CPT/HCPCS: 70551; 72148

== ENCOUNTER 2023-08-10 00:35 | Day surgery (SDC) | payer MEDICARE, SELFPAY ==
[2023-07-27 11:38] VITALS: BMI 30.8
--- NOTE | 2023-08-08 09:08 | SUR.PREOP ---
Addendum entered by Becca Potter RN 08/09/23 10:31: Patient returned call, confirmed times and questions answered regarding medications. Original Note: Patient called regarding upcoming procedure. Message left on pt's voicemail regarding appointment times.
[2023-08-10 11:21] VITALS: BP 138/84; PULSE 70; RESP 16; TEMP 36.4; O2SAT 96; BMI 31.3
[2023-08-10] MEDS: LACTATED RINGERS 1,000 ML 150 ML IV CONT (11:37)
--- NOTE | 2023-08-10 11:41 | WPDANESEPPF ---
Anes - Initial Pre Proc Eval Procedure: Operation Date: 08/10/23 12:30 Proposed Procedures p Esophagogastroduodenoscopy - Caleb Zayas MD Date/Time: 08/10/23 11:41 Surgeon: Caleb Zayas MD Pre Op Diagnosis: Esophageal obstruction, esophagitis Patient Data Age: 73 Gender: F Height: 1.65 m Weight: 85.3 kg Last Vital Signs Temp 36.4 C L 08/10/23 11:21 Pulse 70 08/10/23 11:21 Resp 16 08/10/23 11:21 BP 138/84 08/10/23 11:21 Pulse Ox 96 08/10/23 11:21 O2 Del Method Room Air 08/10/23 11:21 Allergies Allergy/AdvReac Type Severity Reaction Status Date / Time No Known Drug Allergies Allergy Unknown Unknown Verified 08/10/23 11:19 Home Medications Medication Instructions Recorded Confirmed Type cholecalciferol (vitamin D3) 25 1,000 unit PO BID 07/30/19 08/10/23 History mcg (1,000 unit) capsule multivitamin 1 tablet PO DAILY 01/14/20 08/10/23 History calcium carbonate 600 mg calcium 600 mg PO BID 08/05/20 08/10/23 History (1,500 mg) tablet (Calcium) docusate sodium 100 mg capsule 100 mg PO DAILY 10/27/22 08/10/23 History atorvastatin 10 mg tablet 10 mg PO HS #90 tabs 02/20/23 08/10/23 Rx fluoxetine 40 mg capsule (Prozac) 40 mg PO DAILY #90 caps 03/16/23 08/10/23 Rx omeprazole 40 mg capsule,delayed 40 mg PO DAILY #90 caps 03/24/23 08/10/23 Rx release amlodipine 2.5 mg tablet 2.5 mg PO DAILY #90 tabs 04/11/23 08/10/23 Rx lorazepam 1 mg tablet 1 mg PO TID PRN anxiety #90 tabs 06/19/23 08/10/23 Rx vitamin B complex (B 1 tablet PO DAILY 07/10/23 08/10/23 History Complex-Vitamin B12 tablet) Patient hx anesthesia problems: none Family hx anesthesia problems: none Results Review: All pre-operative results and documents have been reviewed as part of the pre-operative evaluation. [facility] Past Medical History Medical History Alopecia areata Anemia Anxiety Arthritis of carpometacarpal (CMC) joint of right thumb BMI 26.0-26.9,adult BMI 27.0-27.9,adult Breast cancer Encounter for breast reconstruction following mastectomy Fallen bladder Hair thinning HTN (hypertension), benign Hypercalcemia Hyperkalemia Hyperlipidemia LDL goal <100 Kidney disease, chronic, stage III (moderate, EGFR 30-59 ml/min) Osteoarthritis of thoracic spine Overweight (BMI 25.0-29.9) Postmenopausal (~2003) Radial styloid tenosynovitis of right hand Varicose veins of bilateral lower extremities with pain Vitamin D deficiency Surgical History Surgical History H/O dilation and curettage H/O thumb surgery 2007 left thumb CMC arthroplasty - [place] H/O toe surgery H/O: hysterectomy (~2010) History of hysteroscopy History of mastectomy (~2003) right Hx of LASIK Hx of tonsillectomy Status post arthroscopy of left knee surgery February 2020 Family History Family History Mother Family history of elevated blood lipids Asthma Thyroid disease Sibling Thyroid disease Father Alcoholism Son Anxiety Social History Social History Years smoked: 12 Smoking status: Former smoker Tobacco type: cigarettes Second hand tobacco smoke exposure: No Smoking end date: 08/21/79 Additional smoking assessment comments: STATES 1 1/2PK/DAY/14YRS-QUIT 1979 Alcohol intake: never Substance use: never Substance use type: does not use Lack of Transportation: No Lack of Food: Never True Current Housing: I Have Housing Concerned About Future Housing: No Difficulty Paying Gas/Electric Bills: No Difficulty Paying for Meds: No Currently Unemployed: No Education: High School Diploma/GED Difficulty w/ Childcare or Family Care: No Living arrangements: with family Additional living arrangements comments: [place] - Occupation/Education: retired Gender identity (i
--- NOTE | 2023-08-10 11:47 | PM.HPGS ---
History of Present Illness History of Present Illness Consent: Risks, benefits, and alternatives have been discussed and questions answered. Patient agrees to proceed with procedure. Chief complaint: GERD Narrative: Mouna Sahu is a 73 year old female presents for EGD. Patient has a long history of heartburn. Initially in her 30s she was treated with Nexium. More recently she has been maintained on omeprazole 20mg p.o. daily. Symptoms of heartburn and rare acid regurgitation seemed to intensify over the last several months. Dose of omeprazole was increased to40mg p.o. daily. Patient states she is able to swallow food. Sometimes she needs water to help it pass. She denies any weight loss or bleeding. Patient referred for EGD because of more intensive heartburn and substernal burning. Family history is noncontributory. Review of Systems Review of Systems: Review of systems noncontributory. [facility] Past Medical History Medical History Alopecia areata Anemia Anxiety Arthritis of carpometacarpal (CMC) joint of right thumb BMI 26.0-26.9,adult BMI 27.0-27.9,adult Breast cancer Encounter for breast reconstruction following mastectomy Fallen bladder Hair thinning HTN (hypertension), benign Hypercalcemia Hyperkalemia Hyperlipidemia LDL goal <100 Kidney disease, chronic, stage III (moderate, EGFR 30-59 ml/min) Osteoarthritis of thoracic spine Overweight (BMI 25.0-29.9) Postmenopausal (~2003) Radial styloid tenosynovitis of right hand Varicose veins of bilateral lower extremities with pain Vitamin D deficiency Surgical History Surgical History H/O dilation and curettage H/O thumb surgery 2007 left thumb CMC arthroplasty - [place] H/O toe surgery H/O: hysterectomy (~2010) History of hysteroscopy History of mastectomy (~2003) right Hx of LASIK Hx of tonsillectomy Status post arthroscopy of left knee surgery February 2020 Family History Family History Mother Family history of elevated blood lipids Asthma Thyroid disease Sibling Thyroid disease Father Alcoholism Son Anxiety Social History Social History Years smoked: 12 Smoking status: Former smoker Tobacco type: cigarettes Second hand tobacco smoke exposure: No Smoking end date: 08/21/79 Additional smoking assessment comments: STATES 1 1/2PK/DAY/14YRS-QUIT 1979 Alcohol intake: never Substance use: never Substance use type: does not use Lack of Transportation: No Lack of Food: Never True Current Housing: I Have Housing Concerned About Future Housing: No Difficulty Paying Gas/Electric Bills: No Difficulty Paying for Meds: No Currently Unemployed: No Education: High School Diploma/GED Difficulty w/ Childcare or Family Care: No Living arrangements: with family Additional living arrangements comments: [place] - Occupation/Education: retired Gender identity (if verbalized by the patient): Female Spiritual care concerns: No Meds Home Medications and Allergies Home Medications Medication Instructions Recorded Confirmed Type cholecalciferol (vitamin D3) 25 1,000 unit PO BID 07/30/19 08/10/23 History mcg (1,000 unit) capsule multivitamin 1 tablet PO DAILY 01/14/20 08/10/23 History calcium carbonate 600 mg calcium 600 mg PO BID 08/05/20 08/10/23 History (1,500 mg) tablet (Calcium) docusate sodium 100 mg capsule 100 mg PO DAILY 10/27/22 08/10/23 History atorvastatin 10 mg tablet 10 mg PO HS #90 tabs 02/20/23 08/10/23 Rx fluoxetine 40 mg capsule (Prozac) 40 mg PO DAILY #90 caps 03/16/23 08/10/23 Rx omeprazole 40 mg capsule,delayed 40 mg PO DAILY #90 caps 03/24/23 08/10/23 Rx release amlodipine 2.5 mg tablet 2.5 mg PO DAILY #90 tabs 04/11/23 08/10/23 Rx lorazepam 1 mg table
[2023-08-10 12:42] VITALS: BP 140/75; PULSE 67; RESP 22; O2SAT 98
[2023-08-10 12:52] VITALS: BP 150/71; PULSE 62; RESP 19; O2SAT 95
[2023-08-10 13:02] VITALS: BP 153/76; PULSE 61; RESP 19; O2SAT 98
== END 2023-08-10 13:05 | disposition home or self-care (01) ==
PROVIDERS: PCP Family Medicine; Visit Provider Internal Medicine Gastroenterology
PROC: 0DJ08ZZ Inspection of Upper Intestinal Tract, Via Natural or Artificial Opening Endoscopic (ICD-10-PCS; CPT 43235; principal; 2023-08-10 12:30)
DX: K21.9 Gastro-esophageal reflux disease without esophagitis (principal); E78.5 Hyperlipidemia, unspecified; I12.9 Hypertensive chronic kidney disease with stage 1 through stage 4 chronic kidney disease, or unspecified chronic kidney disease; N18.30 Chronic kidney disease, stage 3 unspecified; E55.9 Vitamin D deficiency, unspecified; D64.9 Anemia, unspecified; F41.9 Anxiety disorder, unspecified; Z85.3 Personal history of malignant neoplasm of breast; Z87.891 Personal history of nicotine dependence; E66.9 Obesity, unspecified; Z68.31 Body mass index [BMI] 31.0-31.9, adult
CPT/HCPCS: 43239; 87081; J2704; J7120

== ENCOUNTER 2023-09-05 10:30 | Outpatient (RCR) | payer MEDICARE, SELFPAY ==
--- NOTE | 2023-08-24 10:47 | PTOPEVAL1 ---
Assessment and note entered by John Tyler, PT Evaluation Information Assessment Status Evaluation Diagnosis Ataxia, Falls Onset June of 2023 Subjective Information Reports that she has been having neck and backaches starting in the past 6 months. It was worse after falls from what she things might be whiplash. Had imaging indicating cervical and lumbar arthritis. Reports that she has not been sleeping well due to neck pain. Does not feel she has energy but she does go to the gym for exercise 5 days a week incorporating walking for 3 miles. Friends and have told her that she deviates when she walks. Wakes up every morning with a bad headache. She has numbness in toes and balls of her feet that she reports has been going on for a bout 10 years. Assessment PT Clinical Summary Patient presents with hip weakness and minor loss in hip ROM with soft tissue restriction. Altered gait cycle with compensated Trendelenburg on R side. Poor postural control of thoracic and cervical spine with decreased cervical lordosis and increased thoracic kyphosis. Will benefit from skilled therapy to address these deficits. Plan of Care Interventions Gait Training,Hot Pack/Cold Pack,Manual Therapy, Neuro Re-education,Therapeutic Activities, Therapeutic Exercise PT Services Indicated Yes Treatment Frequency and 2x/week for 8 visits Duration These treatments will address the objective and functional deficits as defined above. The patient will be advanced safely and appropriately in order for the patient to progress towards his/her prior level of function. Additional exercises will be introduced and as well as a comprehensive home exercise program upon discharge, if needed, ?to ensure carryover of functional gains achieved in the clinic. This treatment plan has been reviewed and agreement upon by the patient.
--- NOTE | 2023-09-07 08:28 | PCPTNOTE ---
Patient called & cancelled scheduled appointment this date due to having other obligations today.
--- NOTE | 2023-09-15 09:05 | PTOPDC ---
Assessment and note entered by John Tyler, PT Evaluation Information Assessment Status Discharge - Pt Not Present Diagnosis Ataxia, Falls Onset June of 2023 Subjective Information Patient contacted clinic stating that she was much improved and did not feel she needed any more therapy at this point. Requested cancellation of remaining appointments and discharge at this time. Assessment PT Clinical Summary Patient to be discharged from formal therapy at this point due to patient request. Please refer to last treatment note for HEP and discharge status. Plan of Care PT Services Indicated Yes
--- NOTE | 2023-09-15 09:05 | OPREHPOC ---
Outpatient Therapy Plan of Care This is a Multidisciplinary Plan of Care that may contain components documented by all disciplines (PT, OT, and ST.) PT Problem 1 PT Problem #1 Knowledge Deficit PT Goal 1 Goal [place] with HEP Target Visit 4 PT Problem 2 PT Problem #2 Impaired Gait PT Goal 1 Goal Ambulate with even stride length bilaterally Target Visit 8 PT Goal 2 Goal Improve Tinetti score by 5 points to decrease fall risk Target Visit 8 PT Goal 1 Goal Improve randal hip abduction strength to 4+/5 to improve lateral stability with gait and ADLs. Target Visit 8 Progress Met PT Goal 2 Goal Improve randal hip flexion strength to 4+/5 to improve bilateral foot clearance with ADLs. Target Visit 8
== END 2023-09-15 10:22 | disposition home or self-care (01) ==
LOC: ANHGOSHPT 10:30
PROVIDERS: PCP Family Medicine; Visit Provider Family Medicine
DX: R27.0 Ataxia, unspecified (principal); W19.XXXA Unspecified fall, initial encounter
CPT/HCPCS: 97110; 97112; 97140; 97161; 97530

== ENCOUNTER 2023-09-18 12:31 | Outpatient (CLI) | payer MEDICARE, SELFPAY ==
--- NOTE | ~2023-09-18 | XR_ITS ---
XR_[id number]_CR DATE: 09/18/2023 12:59 INDICATION: Fall. Mid lateral and anterior chest pain TECHNIQUE: PA chest. 3 views of the left ribs. COMPARISON: None FINDINGS: Heart size is within normal range. Aortic calcification and tortuosity. No hilar or mediast inal enlargement. Mild discoid atelectasis or scarring in the lateral left lower lung. No pulmonary infiltrate or consolidation, pleural effusion or pulmonary vascular congestion or pneumo thorax. Surgical clips overlie the lower right chest and right breast. There is diffuse osteopenia. No displaced left rib fracture is evident. IMPRESSION: No displaced left rib fractures noted Osteopenia Mild discoid atelectasis or scarring, lateral left lower lung Diffuse osteopenia Surgical clips overlie the lower right chest and right breast Reviewed, dictated and finalized at Location A. Reviewed, dictated and finalized at location B. N RESOURCE PROFESSIONAL
== END 2023-09-18 12:32 | disposition home or self-care (01) ==
PROVIDERS: PCP Family Medicine; Visit Provider Nurse Practitioner Family
DX: R07.81 Pleurodynia (principal); M85.88 Other specified disorders of bone density and structure, other site
CPT/HCPCS: 71101

== ENCOUNTER 2024-05-08 14:48 | Outpatient (CLI) | payer MEDICARE, SELFPAY ==
--- NOTE | ~2024-05-08 | MM_ITS ---
EXAMINATION: MM scrn debbie implant LT w crystal HISTORY: Screening mammogram TECHNIQUE: Craniocaudal and mediolateral oblique 3-D tomosynthesis images with implant displacement a nd synthetic 2-D images were generated. Craniocaudal and mediolateral oblique views of the breasts wi thout implant displacement were obtained using full field digital mammography. CAD analysis was submi tted and interpreted. COMPARISON: 12/17/2022, 11/10/2021, 10/30/2020 BREAST PARENCHYMAL COMPOSITION: There are scattered areas of fibroglandular density. FINDINGS: There is no evidence of suspicious mass, calcification, or architectural distortion to sugg est malignancy in either breast. There has been no suspicious interval change. IMPRESSION: No mammographic evidence of malignancy. Recommend routine screening mammography in one year. BI-RADS Category 1: Negative Reviewed, dictated and finalized at [facility].
== END 2024-05-08 14:49 | disposition home or self-care (01) ==
LOC: ANHIMG 14:51
PROVIDERS: PCP Family Medicine; Visit Provider Obstetrics & Gynecology Gynecology
DX: Z12.31 Encounter for screening mammogram for malignant neoplasm of breast (principal)
CPT/HCPCS: 77063; 77067

== ENCOUNTER 2024-11-17 09:02 | Emergency (ER) | payer MEDICARE, SELFPAY ==
--- NOTE | ~2024-11-17 | XR_ITS ---
CHEST RADIOGRAPH, PA AND LATERAL CLINICAL HISTORY: cough, sob, chest discomfort with cough . COMPARISON: 09/18/2023 TECHNIQUE: PA and lateral views of the chest. FINDINGS The cardiomediastinal silhouette is unremarkable. The lungs are clear. Visualized osseous structures and soft tissues are unremarkable. IMPRESSION: No focal infiltrate or effusion. Reviewed, dictated and finalized at location A.
--- NOTE | 2024-11-17 09:04 | ED.URI ---
HPI - URI/Sore Throat General Chief Complaint: Upper Respiratory Infection Stated Complaint: Sinus Infection Symptoms Time Seen by Provider: 11/17/24 09:15 Source: patient Mode of arrival: ambulatory Limitations: no limitations History of Present Illness HPI Narrative: Mouna is a 74-year-old female patient presenting to the clinic today with complaints of a possible sinus infection. She reports she has been on amoxicillin for the last 2 days and she is not feeling any better. States that her symptoms have been going on for about 1 week. Is complaining of cough and chest congestion with some shortness of breath and chest discomfort. Denies any known recorded fever but has felt feverish. Related Data Home Medications ?Medication ?Instructions ?Recorded ?Confirmed ?Last Taken ?Type cholecalciferol (vitamin D3) 25 1,000 unit PO BID 07/30/19 10/24/24 11/02/22 History mcg (1,000 unit) capsule multivitamin 1 tablet PO DAILY 01/14/20 10/24/24 11/02/22 History docusate sodium 100 mg capsule 100 mg PO DAILY 10/27/22 10/24/24 11/02/22 History vitamin B complex (B 1 tablet PO DAILY 07/10/23 10/24/24 Unknown History Complex-Vitamin B12 tablet) ascorbate calcium (vitamin C) 500 1,200 mg PO DAILY 10/24/24 10/24/24 Unknown History mg tablet clobetasol 0.05 % scalp solution topical 10/24/24 10/24/24 Unknown History finasteride 1 mg tablet mg PO 10/24/24 10/24/24 Unknown History tolterodine 4 mg capsule,extended mg PO 10/24/24 10/24/24 Unknown History release 24 hr Allergies Allergy/AdvReac Type Severity Reaction Status Date / Time No Known Drug Allergies Allergy Unknown Unknown Verified 11/17/24 09:20 Review of Systems Review of Systems: Pertinent positives per HPI. Patient denies any fever, chills, rash, headache, visual changes, dizziness, palpitations, nausea, vomiting, diarrhea, constipation, abdominal pain, or any urinary issues. [facility] Past Medical History Medical History Arthritis of carpometacarpal (CMC) joint of right thumb Radial styloid tenosynovitis of right hand Overweight (BMI 25.0-29.9) Alopecia areata HTN (hypertension), benign Hypercalcemia Hyperkalemia Hyperlipidemia LDL goal <100 Kidney disease, chronic, stage III (moderate, EGFR 30-59 ml/min) 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 Postmenopausal (~2003) BMI 27.0-27.9,adult Breast cancer Anemia BMI 26.0-26.9,adult Vitamin D deficiency Anxiety Hair thinning Fallen bladder Encounter for breast reconstruction following mastectomy Surgical History Surgical History Status post arthroscopy of left knee surgery February 2020 H/O thumb surgery 2007 left thumb CMC arthroplasty - [place] H/O toe surgery Hx of LASIK H/O: hysterectomy (~2010) H/O dilation and curettage History of hysteroscopy History of mastectomy (~2003) right Hx of tonsillectomy Family History Family History Mother Family history of elevated blood lipids Asthma Thyroid disease Sibling Thyroid disease Father Alcoholism Son Anxiety Social History Social History Years smoked: 12 Smoking status: Former smoker Tobacco type: cigarettes Second hand tobacco smoke exposure: No Smoking end date: 08/21/79 Additional smoking assessment comments: STATES 1 1/2PK/DAY/14YRS-QUIT 1979 Alcohol intake: never Substance use: never Substance use type: does not use Lack of Transportation: No Lack of Food: Never True Current Housing: I Have Housing Concerned About Future Housing: No Difficulty Paying Gas/Electric Bills: No Difficulty Paying for Meds: No Currently Unemployed: No Education: High School Diploma/GED Difficulty w/ Childcare or Family Care: No Living arrangements: with family Additional living arrangements comments: [place] - Occupation/Education: retired Gender identity (if verbalized by the patient): Female Spiritual care concerns: No Comments At the time of my signature, I reviewed and agree with the nursing past medical, surgical, social, and family history. There is no relevant family history pertinent to the patient complaint. Exam Narrative: General: Well-developed, well nourished, in no apparent distress Head: Normocephalic, atraumatic Eyes: Pupils equally round and reactive to light bilaterally, EOM intact, sclera and conjunctive clear, no discharge, lids normal Ears: TMs intact, congested, bulging, ear canals clear, no drainage, grossly hearing normal. Nose: Nares patent, clear nasal discharge, no inflammation, no sinus tenderness. Mouth: Oral pharynx without lesions or masses, good dentition, MMM. Postnasal drip Neck: Supple, trachea midline, no enlargement of anterior or posterior cervical nodes, no thyroid masses or goiter palpable. Cardio: Regular rate and rhythm, s1 and s2 normal, no murmur appreciated. Resp: Lung sounds diminished, no rhonchi, rales, wheezing or rubs Course Course Emergency Course: Portions of this record may have been created with voice recognition software. Level of Care: Express Care Visit Vital Signs Vital signs: Vital Signs Temperature 37.1 C 11/17/24 09:13 Pulse Rate 90 11/17/24 09:13 Respiratory Rate 16 11/17/24 09:13 Blood Pressure 153/87 H 11/17/24 09:13 Pulse Oximetry 99 11/17/24 09:13 Temperature 37.1 C 11/17/24 09:13 Pulse Rate 90 11/17/24 09:13 Respiratory Rate 16 11/17/24 09:13 Blood Pressure 153/87 H 11/17/24 09:13 Pulse Oximetry 99 11/17/24 09:13 Oxygen Delivery Room Air 11/17/24 09:54 Vital signs reviewed MDM - URI/Sore Throat MDM Narrative Medical decision making narrative: At the time of visit patient is resting comfortably on the exam table. Patient appears to be nontoxic. Diagnostics: Chest x-ray is negative for any acute cardiopulmonary disease. Plan: I suspect patient has sinusitis/bronchitis. Rx for albuterol inhaler, Augmentin, and prednisone was sent to the pharmacy. Supportive measures were discussed with the patient and they voiced understanding discharge instructions and agrees to treatment plan. Return precautions reviewed Differential Diagnosis Differential diagnosis: Likely upper respiratory infection, otitis media, sinusitis, viral infection, bronchitis, influenza, pharyngitis and other (COVID) Discharge Plan Discharge Clinical Impression: Sinobronchitis Patient Disposition: Home, Self-Care Condition: Stable Instructions: Antibiotic Form, Sinusitis (ED), Acute Bronchitis (ED) Additional Instructions: Awaiting radiologist read the chest x-ray-will call you with results Take prescription medications only as prescribed-Augmentin, prednisone, and albuterol inhaler Stop amoxicillin. Increase fluids and stay well hydrated Tylenol/motrin for pain/fever Flonase and OTC antihistamines as directed Vicks vapor rub to open sinuses Sinus rinses for congestion Cepacol spray, cough drops, throat lozenges, warm tea with honey/lemon, gargle salt water to soothe throat BRAT diet for diarrhea Clear liquids x 24 hours then advance as tolerated for nausea/vomiting Go to the ED if you develop a worsening in your condition- high fever not controlled by Tylenol or Motrin, dehydration, weakness, lethargy, shortness of breath, or chest pain. Follow up with your PCP in 3-5 days if symptoms persist. Patient Language: Telugu Prescriptions: New prednisone 20 mg tablet 40 mg PO DAILY 5 Days Qty: 10 0RF albuterol sulfate 90 mcg/actuation HFA aerosol inhaler 2 puff inhalation Q4-6H PRN (Reason: shortness of breath or wheezing) 30 Days Qty: 8.5 0RF amoxicillin-pot clavulanate 875-125 mg tablet 1 tablet PO Q12H 10 Days Qty: 20 0RF No Action cholecalciferol (vitamin D3) 1,000 unit capsule 1,000 unit PO BID multivitamin Tablet 1 tablet PO DAILY docusate sodium 100 mg capsule 100 mg PO DAILY finasteride 1 mg tablet PO tolterodine 4 mg capsule,extended release 24hr PO ascorbate calcium (vitamin C) 500 mg tablet 1,200 mg PO DAILY clobetasol 0.05 % solution topical vitamin B complex [B Complex-Vitamin B12] Tablet 1 tablet PO DAILY lorazepam 1 mg tablet 1 mg PO TID PRN (Reason: anxiety) Qty: 90 3RF amlodipine 2.5 mg tablet 2.5 mg PO DAILY Qty: 90 1RF atorvastatin 10 mg tablet 10 mg PO HS Qty: 90 1RF fluoxetine [Prozac] 40 mg capsule 40 mg PO DAILY Qty: 90 1RF omeprazole 40 mg capsule,delayed release(DR/EC) 40 mg PO BID Qty: 180 1RF amoxicillin 500 mg capsule 500 mg PO Q8H Qty: 21 1RF Follow-up/Referrals: PHYSICIAN,WAN SUPPORT SPECIALIST [Primary Care Provider] - Time of Disposition: 10:03 [facility] Nursing Documentation ED NIHSS nursing documentation: reviewed/agree
[2024-11-17 09:13] VITALS: BP 153/87; PULSE 90; RESP 16; TEMP 37.1; O2SAT 99
== END 2024-11-17 10:01 | disposition home or self-care (01) ==
PROVIDERS: Emergency Provider Nurse Practitioner Family
DX: J32.9 Chronic sinusitis, unspecified (principal); J40 Bronchitis, not specified as acute or chronic; I12.9 Hypertensive chronic kidney disease with stage 1 through stage 4 chronic kidney disease, or unspecified chronic kidney disease; N18.30 Chronic kidney disease, stage 3 unspecified; E78.5 Hyperlipidemia, unspecified; M18.11 Unilateral primary osteoarthritis of first carpometacarpal joint, right hand; L63.9 Alopecia areata, unspecified; M47.814 Spondylosis without myelopathy or radiculopathy, thoracic region; E55.9 Vitamin D deficiency, unspecified; F41.9 Anxiety disorder, unspecified; Z85.3 Personal history of malignant neoplasm of breast; Z90.11 Acquired absence of right breast and nipple; Z87.891 Personal history of nicotine dependence
CPT/HCPCS: 71046; 99213; G0463

== ENCOUNTER 2024-12-03 16:23 | Emergency (ER) | payer MEDICARE, SELFPAY ==
[2024-12-03] VITALS (7 sets, daily range): BP systolic 154–208; BP diastolic 80–104; PULSE 68–83; RESP 14–26; TEMP 36.4; O2SAT 94–99
--- NOTE | ~2024-12-03 | XR_ITS ---
CHEST RADIOGRAPH CLINICAL HISTORY: palpitations . COMPARISON: 11/17/2024 TECHNIQUE: Single portable view of the chest. FINDINGS The cardiomediastinal silhouette is unremarkable. Coarse interstitial lung markings are detected bilaterally, unchanged from prior and likely chronic. The remainder of the lungs are clear. IMPRESSION: Coarse interstitial lung markings, without focal infiltrate or effusion. Reviewed, dictated and finalized at location A.
--- NOTE | 2024-12-03 16:30 | ECG_ITS ---
Test Date: 2024-12-03 16:38:15 Measurements Intervals [place] Rate: 84 P: 50 DC: 162 QRS: -14 QRSD: 82 T: 46 QT: 363 QTc: 430 Interpretive Statements SINUS RHYTHM POSSIBLE LEFT ATRIAL ENLARGEMENT LOW QRS VOLTAGE IN PRECORDIAL LEADS POSSIBLE RIGHT VENTRICULAR CONDUCTION DELAY CONSIDER ANTERIOR INFARCT, AGE INDETERMINATE BASELINE ARTIFACT- II, III, AVL, V1-V3, V5-V6 ABNORMAL ECG No previous ECG available for comparison Electronically Signed On 12-03-2024 16:42:23 CDT by Barak Connor D.O.
--- NOTE | 2024-12-03 16:39 | ED.ARRPALP ---
HPI - Arrhythmia/Palpitations General Chief Complaint: Arrhythmia/Palpitations <Berna Martinez PA-C - Last Filed: 12/03/24 16:41> Stated Complaint: Feels like heart is racing <Berna Martinez PA-C - Last Filed: 12/03/24 16:41> Time Seen by Provider: 12/03/24 17:13 <Berna Martinez PA-C - Last Filed: 12/03/24 16:41> Focused HPI: 74 y/o F with a PMHx of HTN, HLD, CKD presents to the ED for intermittent palpitations and dyspnea that started yesterday. Denies aggravating or alleviating factors. No hx of prior arrhythmias. Denies chest pain. GENERAL: Well-appearing, well-nourished, and in no acute distress. HEAD: Normocephalic, atraumatic. CHEST: Clear to auscultation. ?No respiratory distress. HEART: Regular rate and rhythm.? NEURO: ?Alert and oriented x3. Patient screened in triage and initial orders placed.? ?Additional care and disposition to be based upon?diagnostic testing and treatment. <Berna Martinez PA-C - Last Filed: 12/03/24 16:41> History of Present Illness HPI narrative: agree with above <Katlyn Berumen MD - Last Filed: 12/03/24 21:24> Related Data Home Medications: Home Medications ?Medication ?Instructions ?Recorded ?Confirmed ?Last Taken ?Type cholecalciferol (vitamin D3) 25 1,000 unit PO BID 07/30/19 10/24/24 11/02/22 History mcg (1,000 unit) capsule multivitamin 1 tablet PO DAILY 01/14/20 10/24/24 11/02/22 History docusate sodium 100 mg capsule 100 mg PO DAILY 10/27/22 10/24/24 11/02/22 History vitamin B complex (B 1 tablet PO DAILY 07/10/23 10/24/24 Unknown History Complex-Vitamin B12 tablet) ascorbate calcium (vitamin C) 500 1,200 mg PO DAILY 10/24/24 10/24/24 Unknown History mg tablet clobetasol 0.05 % scalp solution topical 10/24/24 10/24/24 Unknown History finasteride 1 mg tablet mg PO 10/24/24 10/24/24 Unknown History tolterodine 4 mg capsule,extended mg PO 10/24/24 10/24/24 Unknown History release 24 hr <Berna Martinez PA-C - Last Filed: 12/03/24 16:41> Allergies/Adverse Reactions: Allergies Allergy/AdvReac Type Severity Reaction Status Date / Time No Known Drug Allergies Allergy Unknown Unknown Verified 12/03/24 16:54 <Berna Martinez PA-C - Last Filed: 12/03/24 16:41> Review of Systems Review of Systems: per HPI <Katlyn Berumen MD - Last Filed: 12/03/24 21:24> [facility] Past Medical History Medical History: Medical History Arthritis of carpometacarpal (CMC) joint of right thumb Radial styloid tenosynovitis of right hand Overweight (BMI 25.0-29.9) Alopecia areata HTN (hypertension), benign Hypercalcemia Hyperkalemia Hyperlipidemia LDL goal <100 Kidney disease, chronic, stage III (moderate, EGFR 30-59 ml/min) 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 Postmenopausal (~2003) BMI 27.0-27.9,adult Breast cancer Anemia BMI 26.0-26.9,adult Vitamin D deficiency Anxiety Hair thinning Fallen bladder Encounter for breast reconstruction following mastectomy <Berna Martinez PA-C - Last Filed: 12/03/24 16:41> Surgical History Surgical History: Surgical History Status post arthroscopy of left knee surgery February 2020 H/O thumb surgery 2007 left thumb CMC arthroplasty - [place] H/O toe surgery Hx of LASIK H/O: hysterectomy (~2010) H/O dilation and curettage History of hysteroscopy History of mastectomy (~2003) right Hx of tonsillectomy <Berna Martinez PA-C - Last Filed: 12/03/24 16:41> Family History Family History: Family History Mother Family history of elevated blood lipids Asthma Thyroid disease Sibling Thyroid disease Father Alcoholism Son Anxiety <Berna Martinez PA-C - Last Filed: 12/03/24 16:41> Social History Social History: Social History Years smoked: 12 Smoking status: Former smoker Tobacco type: cigarettes Second hand tobacco smoke exposure: No Smoking end date: 08/21/79 Additional smoking assessment comments: STATES 1 1/2PK/DAY/14YRS-QUIT 1979 Alcohol intake: never Substance use: never Substance use type: does not use Lack of Transportation: No Lack of Food: Never True Current Housing: I Have Housing Concerned About Future Housing: No Difficulty Paying Gas/Electric Bills: No Difficulty Paying for Meds: No Currently Unemployed: No Education: High School Diploma/GED Difficulty w/ Childcare or Family Care: No Living arrangements: with family Additional living arrangements comments: [place] - Occupation/Education: retired Gender identity (if verbalized by the patient): Female Spiritual care concerns: No <Berna Martinez PA-C - Last Filed: 12/03/24 16:41> Exam Narrative: EXAMINATION OF ORGAN SYSTEMS/BODY AREAS: Constitutional: Vital signs per nursing GENERAL:[No acute distress, non-toxic appearing.] HEAD: Normal with no signs of head trauma. EYES: EOMI, conjunctiva normal ENT: Hearing grossly intact LUNGS: Nonlabored breathing. HEART: [Regular rate and rhythm] ABD: [Soft], [nontender to palpation] EXT: Normal range of motion SKIN: [No rashes or lesions.] NEURO: [Alert and oriented x 3. No gross focal sensory or strength deficits.] Clear speech. PSYCH: Normal affect <Katlyn Berumen MD - Last Filed: 12/03/24 21:24> Course Vital Signs Vital signs: Vital Signs Temperature 97.6 F 12/03/24 16:27 Pulse Rate 83 12/03/24 16:27 Respiratory Rate 16 12/03/24 16:27 Blood Pressure 185/104 H 12/03/24 16:27 Pulse Oximetry 97 12/03/24 16:27 Temperature 97.6 F 12/03/24 16:27 Pulse Rate 68 12/03/24 18:40 Respiratory Rate 20 12/03/24 18:40 Blood Pressure 154/87 H 12/03/24 18:40 Pulse Oximetry 99 12/03/24 18:40 <Berna Martinez PA-C - Last Filed: 12/03/24 16:41> Vital Signs Temperature 97.6 F 12/03/24 16:27 Pulse Rate 83 12/03/24 16:27 Respiratory Rate 16 12/03/24 16:27 Blood Pressure 185/104 H 12/03/24 16:27 Pulse Oximetry 97 12/03/24 16:27 Temperature 97.6 F 12/03/24 16:27 Pulse Rate 68 12/03/24 18:40 Respiratory Rate 20 12/03/24 18:40 Blood Pressure 154/87 H 12/03/24 18:40 Pulse Oximetry 99 12/03/24 18:40 <Katlyn Berumen MD - Last Filed: 12/03/24 21:24> MDM - Arrhythmia/Palpitations MDM Narrative Medical decision making narrative: ED COURSE AND MEDICAL DECISION MAKINF presenting with palpitations. EKG done in triage negative for acute ischemic changes. Cardiac workup is initiated. EKG: Performed in triage and interpreted by me. Normal sinus rhythm. Rate 84. Normal axis. RI normal. QRS duration normal. QTc normal. No pathologic Q waves. No ST segment elevation or depression to suggest acute ischemia. HEART score is 3 with no acute ischemic changes on EKG and negative troponin making ACS unlikely. Electrolytes are normal as is her TSH. She continues to appear to be in sinus rhythm on telemetry. On repeat evaluation just prior to discharge, the patient is no acute distress. I had a long discussion with the patient and with shared decision making, she is comfortable with outpatient management. She was given clear return instructions by myself in person as well as on discharge paperwork. Cardiology follow-up will be provided. <Katlyn Berumen MD - Last Filed: 12/03/24 21:24> Lab Data Result diagrams: 12/03/24 16:53 12/03/24 16:53 <Berna Martinez PA-C - Last Filed: 12/03/24 16:41> Labs: Lab Results 12/03/24 12/03/24 Range/Units 16:53 17:20 WBC 8.0 (4.5-10.0) K/mm3 RBC 4.33 (4.2-5.4) M/mm3 Hgb 13.2 (12.0-15.0) g/dL Hct 40.4 (37.0-47.0) % MCV 93.3 (80-100) fl MCH 30.5 (26-34) pg MCHC 32.7 (32-36) g/dl RDW 13.2 (11.5-14.5) % Plt Count 240 (150-375) k/mm3 MPV 11.5 H (7.4-10.4) fl Immature Gran % (Auto) 0.1 (0-0.5) % Neut % (Auto) 57.5 (45.5-73.1) % Lymph % (Auto) 32.6 (18.3-44.2) % [place] % (Auto) 7.2 (2.6-8.5) % Eos % (Auto) 2.4 (0-4.4) % Baso % (Auto) 0.2 (0.2-1.2) % Lymph # (Auto) 2.62 (0.9-3.2) K/mm3 [place] # (Auto) 0.6 (0.1-0.6) K/mm3 Eos # (Auto) 0.2 (0-0.3) K/mm3 Baso # (Auto) 0.0 (0.0-0.1) K/mm3 Abs Immat Gran (auto) 0.01 (0.00-0.031) K/mm3 Absolute Neuts (auto) 4.6 (1.3-6.7) K/mm3 Absolute Nucleated RBC 0.000 (0.0-0.012) K/mm3 Nucleated RBC % 0.0 (0.0-0.2) % PT 12.7 (11.1-14.7) Seconds INR 0.9 APTT 22.9 (22.3-36.8) Seconds Sodium 140 (137-145) mmol/L Potassium 3.9 (3.4-5.0) mmol/L Chloride 104 (98-107) mmol/L Carbon Dioxide 24 (22-30) mmol/L Anion Gap 12 (4-12) mmol/L BUN 18 H (7-17) mg/dL Creatinine 1.00 (0.7-1.0) mg/dL Estim Creat Clear Calc Not Reportable Estimated GFR 54 L (59 - ) Glucose 114 H (65-110) mg/dL Calcium 10.1 (8.4-10.2) mg/dL Magnesium 2.0 (1.6-2.3) mg/dL Total Bilirubin 0.9 (0.2-1.3) mg/dL AST 29 (14-36) U/L ALT 32 (6-35) U/L Alkaline Phosphatase 76 (38-126) U/L Troponin I < 0.012 (0.000-0.034) ng/mL NT-Pro-B Natriuret Pep 256 H (19.9-100) pg/mL Total Protein 8.0 (6.3-8.2) g/dL Albumin 4.8 (3.5-5.1) g/dL Lipase 69 (23-300) U/L TSH (Reflex) 2.180 (0.465-4.68) uIU/mL <Berna Martinez PA-C - Last Filed: 12/03/24 16:41> Lab Results 12/03/24 12/03/24 Range/Units 16:53 17:20 WBC 8.0 (4.5-10.0) K/mm3 RBC 4.33 (4.2-5.4) M/mm3 Hgb 13.2 (12.0-15.0) g/dL Hct 40.4 (37.0-47.0) % MCV 93.3 (80-100) fl MCH 30.5 (26-34) pg MCHC 32.7 (32-36) g/dl RDW 13.2 (11.5-14.5) % Plt Count 240 (150-375) k/mm3 MPV 11.5 H (7.4-10.4) fl Immature Gran % (Auto) 0.1 (0-0.5) % Neut % (Auto) 57.5 (45.5-73.1) % Lymph % (Auto) 32.6 (18.3-44.2) % [place] % (Auto) 7.2 (2.6-8.5) % Eos % (Auto) 2.4 (0-4.4) % Baso % (Auto) 0.2 (0.2-1.2) % Lymph # (Auto) 2.62 (0.9-3.2) K/mm3 [place] # (Auto) 0.6 (0.1-0.6) K/mm3 Eos # (Auto) 0.2 (0-0.3) K/mm3 Baso # (Auto) 0.0 (0.0-0.1) K/mm3 Abs Immat Gran (auto) 0.01 (0.00-0.031) K/mm3 Absolute Neuts (auto) 4.6 (1.3-6.7) K/mm3 Absolute Nucleated RBC 0.000 (0.0-0.012) K/mm3 Nucleated RBC % 0.0 (0.0-0.2) % PT 12.7 (11.1-14.7) Seconds INR 0.9 APTT 22.9 (22.3-36.8) Seconds Sodium 140 (137-145) mmol/L Potassium 3.9 (3.4-5.0) mmol/L Chloride 104 (98-107) mmol/L Carbon Dioxide 24 (22-30) mmol/L Anion Gap 12 (4-12) mmol/L BUN 18 H (7-17) mg/dL Creatinine 1.00 (0.7-1.0) mg/dL Estim Creat Clear Calc Not Reportable Estimated GFR 54 L (59 - ) Glucose 114 H (65-110) mg/dL Calcium 10.1 (8.4-10.2) mg/dL Magnesium 2.0 (1.6-2.3) mg/dL Total Bilirubin 0.9 (0.2-1.3) mg/dL AST 29 (14-36) U/L ALT 32 (6-35) U/L Alkaline Phosphatase 76 (38-126) U/L Troponin I < 0.012 (0.000-0.034) ng/mL NT-Pro-B Natriuret Pep 256 H (19.9-100) pg/mL Total Protein 8.0 (6.3-8.2) g/dL Albumin 4.8 (3.5-5.1) g/dL Lipase 69 (23-300) U/L TSH (Reflex) 2.180 (0.465-4.68) uIU/mL <Katlyn Berumen MD - Last Filed: 12/03/24 21:24> Discharge Plan Discharge Clinical Impression: Heart palpitations <Berna Martinez PA-C - Last Filed: 12/03/24 16:41> Patient Disposition: Home <Berna Martinez PA-C - Last Filed: 12/03/24 16:41> Condition: Stable <Berna Martinez PA-C - Last Filed: 12/03/24 16:41> Instructions: Heart Palpitations (ED) <Berna Martinez PA-C - Last Filed: 12/03/24 16:41> Additional Instructions: Please follow up with the dietetics teacher if your symptoms return or worsen. You can always come back to the ER. <Berna Martinez PA-C - Last Filed: 12/03/24 16:41> Patient Language: Greenlandic <Berna Martinez PA-C - Last Filed: 12/03/24 16:41> Prescriptions: No Action prednisone 20 mg tablet 40 mg PO DAILY 5 Days Qty: 10 0RF albuterol sulfate 90 mcg/actuation HFA aerosol inhaler 2 puff inhalation Q4-6H PRN (Reason: shortness of breath or wheezing) 30 Days Qty: 8.5 0RF amoxicillin-pot clavulanate 875-125 mg tablet 1 tablet PO Q12H 10 Days Qty: 20 0RF cholecalciferol (vitamin D3) 1,000 unit capsule 1,000 unit PO BID multivitamin Tablet 1 tablet PO DAILY docusate sodium 100 mg capsule 100 mg PO DAILY finasteride 1 mg tablet PO tolterodine 4 mg capsule,extended release 24hr PO ascorbate calcium (vitamin C) 500 mg tablet 1,200 mg PO DAILY clobetasol 0.05 % solution topical vitamin B complex [B Complex-Vitamin B12] Tablet 1 tablet PO DAILY lorazepam 1 mg tablet 1 mg PO TID PRN (Reason: anxiety) Qty: 90 3RF amlodipine 2.5 mg tablet 2.5 mg PO DAILY Qty: 90 1RF atorvastatin 10 mg tablet 10 mg PO HS Qty: 90 1RF fluoxetine [Prozac] 40 mg capsule 40 mg PO DAILY Qty: 90 1RF omeprazole 40 mg capsule,delayed release(DR/EC) 40 mg PO BID Qty: 180 1RF amoxicillin 500 mg capsule 500 mg PO Q8H Qty: 21 1RF <Berna Martinez PA-C - Last Filed: 12/03/24 16:41> Follow-up/Referrals: Jean Pierre Freeman MD [Physician] - 2 Days PHYSICIAN,AUTOMOBILE REPOSSESSOR [Non-Staff] - <Berna Martinez PA-C - Last Filed: 12/03/24 16:41>
--- OUTSIDE RECORDS SUMMARY | 2024-12-03 16:56 | XMS_ITS | Referral Summary ---
Author Organization [facility] Address [address] [facility] [place] [address] Care Team Providers Care Surgical Services Coordinator Name Role Phone Familia Abad MD Primary Care Provider [phone] [phone] Encounters Date Type Department Care Team Description 10/28/2024 2:55 PM CDT Ancillary Procedure [facility] Imaging at [address] [phone] 10/28/2024 3:00 PM CDT Office Visit [facility] Orthopedic and Sports Medicine [address] [place] [phone] Olvin Mcgrath PA Primary osteoarthritis of first carpometacarpal joint of right hand (Primary Dx); De Quervain's tenosynovitis from Last 3 Months Allergies No known active allergies Medications amLODIPine (NORVASC) 2.5 mg tablet Take 1 tablet (2.5 mg total) by mouth daily 5 Active atorvastatin (LIPITOR) 10 mg tablet Take 1 tablet (10 mg total) by mouth nightly 5 Active clobetasoL (TEMOVATE) 0.05 % external solution Apply 50 Applications topically 2 (two) times a day 5 Active finasteride (PROPECIA) 1 mg tablet Take 1 tablet (1 mg total) by mouth daily 5 Active FLUoxetine (PROzac) 40 mg capsule Take 1 capsule (40 mg total) by mouth 2 (two) times a day 5 Active LORazepam (ATIVAN) 1 mg tablet Take 1 tablet (1 mg total) by mouth every 6 (six) hours as needed 5 Active omeprazole (PriLOSEC) 40 mg capsule Take 1 capsule (40 mg total) by mouth 2 (two) times a day 5 Active tolterodine LA (DETROL LA) 4 mg 24 hr capsule Take 1 capsule (4 mg total) by mouth daily 5 Active Active Problems No known active problems Social History Tobacco Use Types Packs/Day Years Used Date Smoking Tobacco: Former Cigarettes 1.5 14 1 966 - 1979 Smokeless Tobacco: Never Tobacco Cessation:Counseling Given: Not Answered Alcohol Use Standard Drinks/Week Comments No 0 (1 standard drink = 0.6 oz pur e alcohol) AUDIT-C Answer Date Recorded Q1: How often do you have a drink containing alcohol? Never 10/28/2024 Q2: How many drinks containi ng alcohol do you have on a typical day when you are drinking? Patient does not drink Q3: How often do you have si x or more drinks on one occasion? 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 Gender Identity Not on file Sexual Orientation Not on file Occupation Industry Job Start Date Job End Date retired Not on file Not on file Not on file Last Filed Vital Signs Vital Sign Reading Time Taken Comments Blood Pressure 141/75 10/28/2024 3:05 PM CDT Pulse 82 10/28/2024 3:05 PM CDT Temperature - - Respiratory Rate 16 10/28/2024 3:05 PM CDT Oxygen Saturation - - Inhaled Oxygen Concentration - - Weight 86.9 kg (191 lb 9.6 oz) 10/28/2024 3:05 P M CDT Height 170.2 cm (5' 7 ) 12/26/2013 12:49 PM CDT Body Mass Index - - Plan of Treatment Not on file Procedures Procedure Name Priority Date/Time Associated Diagnosis Comments XR HAND RIGHT 3 OR MORE VIEWS Schedule Routine, Read Routine (OP Routine) 10/28/2024 2:57 PM CDT Primary osteoarthritis of first carpometacarpal joint of right hand from Last 3 Months Results * XR Hand Right 3 or More Views (10/28/2024 2:57 PM CDT) Anatomical Region Laterality Modality Upper Extremities, Hand Right Digital Radiography Narrative 10/28/2024 3:16 PM CDT 3 view of the hand are negative for fracture or dislocation. Soft tissues unremarkable. They show advanced degenerative OA changes in the 1st CMC joint space. Radial subluxation of the joint also noted with osteophyte formation and an extra-articular loose body. lOvin CAPUTO IMFelix XR PROCEDURES Final Res ult from Last 3 Months Insurance [facility] MEDICARE GOLD [facility] MEDICARE GOLD Care Teams Surgical Services Coordinator Relationship Specialty Start Date End Date Familia Abad MD PCP - General Family Medicine 02/15/23
--- OUTSIDE RECORDS SUMMARY | 2024-12-03 16:56 | XMS_ITS | Clinical Summary ---
Author Organization [facility] Address [address] [facility] [place] [address] Care Team Providers Care Human Resources Partner Name Role Phone Familia Abad MD Primary Care Provider [phone] [phone] Allergies No known active allergies Medications amLODIPine [...] Active Active Problems No known active problems Encounters Date Type Department Care Team Description 10/28/2024 3:00 PM CDT Office Visit [facility] Orthopedic and Sports Medicine [address] [place] [phone] Olvin Mcgrath PA Primary osteoarthritis of first carpometacarpal joint of right hand (Primary Dx); De Quervain's tenosynovitis 10/28/2024 2:55 PM CDT Ancillary Procedure [facility] Imaging at [address] [phone] from Last 3 Months Surgical History Surgery Date Site/Laterality Comments SIMPLE MASTECTOMY Simple Mastectomy Left Breast - (Added by Conv) BREAST RECONSTRUCTION THUMB SURGERY HYSTEROSCOPY DILATION AND CURETTAGE OF UTERUS HYSTERECTOMY Medical History Medical History Date Comments Hypertension 02/06/2018 Marked yes on general health questionnaire Family History Medical History Relation Name Comments Hypertension Father Family history of hypertension - (Added by TW Conv) Hypertension Mother Family history of hypertension - (Added by Conv) No Known Problems Sister 1 No Known Problems Sister 2 Relation Name Status Comments Father Mother Sister 1 Alive Sister 2 Alive Social History Tobacco Use Types Packs/Day Years Used Date Smoking Tobacco: Former Cigarettes 1.5 14 1 966 - 1980 Smokeless Tobacco: Never Tobacco Cessation:Counseling Given: Not [...] on file 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 Gender Identity Not on file Sexual Orientation Not on file Occupation Industry Job Start Date Job End Date retired Not on file Not on file Not on file Obstetrics History Last Filed Vital Signs Vital Sign Reading [...] Mass Index - - Plan of Treatment Health Maintenance Due Date Last Done Comments Breast Cancer Screening-Mammogram 1950 Colon Cancer Screening-Colonoscopy 1950 Depression Screening 1950 Fall Risk Assessment 1950 Hepatitis C Screening 1950 Osteoporosis Screening-Bone Density Scan 1950 Hepatitis B Screening 1969 Well Visit 65+ 2016 Pneumococcal vaccine 65+ (2 of 2 - PCV) 05/20/2017 05/20/2016 Zoster Vaccine (2 of 2) 02/16/2023 12/22/2022 Covid-19 Vaccine (2023-2 5 season) 2024 12/22/2022, 05/03/2022, 12/22/2021, Additional history exists Influenza Vaccine (#1) 2024 , 05/03/2021, 05/11/2018, Additional history exists DTaP/Tdap/Td Vaccine (4 - Td or Tdap) 03/01/2032 03/01/2022, 08/03/2018, 09/13/2006 Procedures Procedure Name Priority Date/Time Associated Diagnosis [...] osteophyte formation and an extra-articular loose body. Olvin CAPUTO IMG XR PROCEDURES Final Res ult from Last 3 Months Insurance [employer] MEDICARE GOLD [facility] MEDICARE GOLD Care Teams Human Resources Partner Relationship Specialty Start Date End Date Familia Abad MD PCP - General Family Medicine 02/15/23
[2024-12-03 16:58] LABS: Basophils Percent Auto 0.2 % (0.2-1.2); Eosinophils Absolute Auto 0.2 K/mm3 (0-0.3); Eosinophils Percent Auto 2.4 % (0-4.4); Hematocrit 40.4 % (37.0-47.0); Hemoglobin 13.2 g/dL (12.0-15.0); Immature Granulocyte Absolute 0.01 K/mm3 (0.00-0.031); Immature Granulocyte Percent A 0.1 % (0-0.5); Lymphocytes Absolute Auto 2.62 K/mm3 (0.9-3.2); Lymphocytes Percent Auto 32.6 % (18.3-44.2); Mean Corpuscular HGB Conc 32.7 g/dl (32-36); Mean Corpuscular Hemoglobin 30.5 pg (26-34); Mean Corpuscular Volume 93.3 fl (80-100); Mean Platelet Volume 11.5 fl (7.4-10.4); Monocytes Absolute Auto 0.6 K/mm3 (0.1-0.6); Monocytes Percent Auto 7.2 % (2.6-8.5); Neutrophils Absolute Auto 4.6 K/mm3 (1.3-6.7); Neutrophils Percent Auto 57.5 % (45.5-73.1); Platelet Count Result 240 k/mm3 (150-375); Red Blood Count 4.33 M/mm3 (4.2-5.4); Red Cell Distribution Width 13.2 % (11.5-14.5)
[2024-12-03 17:07] LABS: Alanine Aminotransferase 32 U/L (6-35); Albumin Level 4.8 g/dL (3.5-5.1); Alkaline Phosphatase 76 U/L (38-126); Anion Gap 12 mmol/L (4-12); Aspartate Amino Transferase 29 U/L (14-36); Bilirubin,Total 0.9 mg/dL (0.2-1.3); Blood Urea Nitrogen 18 mg/dL (7-17); Calcium 10.1 mg/dL (8.4-10.2); Carbon Dioxide 24 mmol/L (22-30); Chloride 104 mmol/L (98-107); Estimated Glomerular Filt Rate 54; Glucose 114 mg/dL (65-110); Lipase 69 U/L (23-300); Potassium 3.9 mmol/L (3.4-5.0); Sodium 140 mmol/L (137-145)
[2024-12-03 17:19] LABS: NT Pro B Type Natriuretic Pept 256 pg/mL (19.9-100); Troponin I < 0.012 ng/mL (0.000-0.034)
[2024-12-03 17:36] LABS: INR 0.9; Prothrombin Time 12.7 Seconds (11.1-14.7)
[2024-12-03 17:37] LABS: Partial Thromboplastin Time 22.9 Seconds (22.3-36.8)
--- OUTSIDE RECORDS SUMMARY | 2024-12-03 17:51 | XMS_ITS | Clinical Summary ---
Author Organization [facility] Address [address] [facility] [place] [address] Care Team Providers Care Business Department Chair Name Role Phone Familia Abad MD Primary Care Provider [phone] [phone] Allergies No known active allergies Medications amLODIPine [...] Description 10/28/2024 3:00 PM CDT Office Visit [facility] Orthopedic and Sports Medicine [address] [place] [phone] Ovlin Mcgrath PA Primary osteoarthritis of first carpometacarpal joint of right hand (Primary Dx); De Quervain's tenosynovitis 10/28/2024 2:55 PM CDT Ancillary Procedure [facility] Imaging at [address] [phone] from Last 3 Months Surgical [...] on file 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
--- OUTSIDE RECORDS SUMMARY | 2024-12-03 17:51 | XMS_ITS | Referral Summary ---
Author Organization [facility] Address [address] [facility] [place] [address] Care Team Providers Care Glass Tube Bender Name Role Phone Familia Abad MD Primary Care Provider +1 [phone] Encounters Date Type Department Care Team Description 10/28/2024 2:55 PM CDT Ancillary Procedure [facility] Imaging at [address] [phone] 10/28/2024 3:00 PM CDT Office Visit [facility] Orthopedic and Sports Medicine [address] [place] [phone] Olvin Mcgrath PA Primary osteoarthritis of [...] on file 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 Olvin CAPUTO IMFelix XR PROCEDURES Final Res ult from Last 3 Months Insurance [facility] MEDICARE GOLD [facility] MEDICARE GOLD Care Teams Glass Tube Bender Relationship Specialty Start Date End Date Familia Abad MD PCP - General Family Medicine 02/15/23
== END 2024-12-03 18:42 | disposition home or self-care (01) ==
PROVIDERS: Physician Assistant; Emergency Provider Emergency Medicine; PCP Family Medicine
DX: R00.2 Palpitations (principal); I12.9 Hypertensive chronic kidney disease with stage 1 through stage 4 chronic kidney disease, or unspecified chronic kidney disease; N18.30 Chronic kidney disease, stage 3 unspecified; E78.5 Hyperlipidemia, unspecified; E55.9 Vitamin D deficiency, unspecified; M18.9 Osteoarthritis of first carpometacarpal joint, unspecified; M47.814 Spondylosis without myelopathy or radiculopathy, thoracic region; F41.9 Anxiety disorder, unspecified; Z96.692 Finger-joint replacement of left hand; Z85.3 Personal history of malignant neoplasm of breast; Z87.891 Personal history of nicotine dependence; Z90.710 Acquired absence of both cervix and uterus; Z90.11 Acquired absence of right breast and nipple; Z79.899 Other long term (current) drug therapy; R94.31 Abnormal electrocardiogram [ECG] [EKG]
CPT/HCPCS: 36415; 71045; 80053; 83690; 83735; 83880; 84443; 84484; 85025; 85610; 85730; 93005; 99284

== ENCOUNTER 2025-01-06 10:03 | Outpatient (CLI) | payer MEDICARE, SELFPAY ==
--- NOTE | ~2025-01-06 | DEXA_ITS ---
Bone Density Report Name: RAMIN MORTON Age: 74 Sex: Female Ethnicity: White Date of : 1950 Indication: osteopenia; height loss; cancer; hysterectomy; Referring Provider: SANCHO CATHERINE Study: Bone densitometry was performed. Exam Date: January 06, 2025 Accession number: [id number] Bone Density: Region BMD T-score Z-score Classification AP Spine(L1-L4) 0.910 -1.2 1.1 Osteopenia Femoral Neck (Left) 0.624 -2.0 0.0 Osteopenia Total Hip (Left) 0.818 -1.0 0.7 Normal Femoral Neck (Right) 0.692 -1.4 0.6 Osteopenia Total Hip (Right) 0.828 -0.9 0.8 Normal Total Hip Mean 0.823 -1.0 0.8 Normal World Health Organization criteria for BMD impression classify patients as: Normal (T-score at or above -1.0), Osteopenia (T-score between -1.0 and -2.5), or Osteoporosis (T-score at or below -2.5). 10-year Fracture Risk(1): Major Osteoporotic Fracture 12% Hip Fracture 2.7% Reported Risk Factors: [place] (), Neck BMD=0.624, BMI=30.9 (1) FRAX(R) Version 3.08. Fracture probability calculated for an untreated patient. Fracture probability may be lower if the patient has received treatment. Previous Exams: Region Exam Age BMD T-score BMD Change BMD Change Date g/cm2 vs Baseline vs Previous AP Spine (L1-L4) 01/06/2025 74 0.910 -1.2 -0.022 (-2.4%) -0.008 (-0.8%) 12/17/2022 72 0.917 -1.2 -0.015 (-1.6%) -0.015 (-1.6%) 10/24/2019 69 0.932 -1.0 Total Hip(Left) 01/06/2025 74 0.818 -1.0 0.009 (1.2%) 0.046 (6.0%)* 12/17/2022 72 0.771 -1.4 -0.037 (-4.6%) -0.037 (-4.6%) 10/24/2019 69 0.808 -1.1 Total Hip(Right) 01/06/2025 74 0.828 -0.9 -0.013 (-1.6%) 0.009 (1.0%) 12/17/2022 72 0.820 -1.0 -0.022 (-2.6%) -0.022 (-2.6%) 10/24/2019 69 0.841 -0.8 *Denotes significance at 95% confidence level, LSC for AP Spine = 0.022 g/cm2, LSC for Total Hip = 0.027 g/cm2 Clinical Information Provided by Patient: Has used the following medications: Vitamin D, Calcium Has the following medical conditions: Cancer, Hysterectomy Patient maximum height was 68 Menopause Age: 54 No regular weight bearing exercise Drinks caffeinated beverages Onset of menses at age 14 Number of children 2 Impression: The patient has low bone mass, based on the Left Femoral Neck T-score. The patient has an estimated ten-year risk of hip fracture of 2.7% and an estimated ten-year risk of major fracture of 12%, based on the WHO FRAX algorithm. No significant bone loss was observed. Discussion: BONE DENSITY IS LOW AT ONE OR MORE SKELETAL SITES. This patient's lowest T-score is low at one or more skeletal sites. It meets the World Health Organization's (WHO) criteria for “low bone mass” (T-score between -1.0 and -2.5). The patient's 10-year risk of fracture as calculated by FRAX is less than the threshold where pharmacological therapy is recommended by the National Osteoporosis Foundation (NOF). However, all treatment decisions require clinical judgment and consideration of individual patient factors, including patient preferences, comorbidities, previous drug use, risk factors not captured in the FRAX model (e.g., frailty, falls, vitamin D deficiency, increased bone turnover, interval significant decline in bone density) and possible under or overestimation of fracture risk by FRAX. The patient should follow a healthful lifestyle (good nutrition with adequate calcium and vitamin D, and appropriate weight-bearing exercise). Follow-Up: Consider repeating this study in 2 to 3 years to reassess this patient's status, or sooner if there is some new clinical indication. Reported by: MARYLU on 01/06/2025 10:58:00 AM. Reviewed, dictated and finalized at location A.
== END 2025-01-06 10:04 | disposition home or self-care (01) ==
LOC: ANHIMG 10:11
PROVIDERS: PCP Family Medicine; Visit Provider Obstetrics & Gynecology Gynecology
DX: M85.89 Other specified disorders of bone density and structure, multiple sites (principal); Z78.0 Asymptomatic menopausal state
CPT/HCPCS: 77080

== ENCOUNTER 2025-02-22 13:02 | Emergency (ER) | payer MEDICARE, SELFPAY ==
--- NOTE | 2025-02-22 13:11 | ED_ITS ---
HPI - General Adult General Chief complaint: Skin/Abscess/Foreign Body Stated complaint: Right Breast Pain Time Seen by Provider: 02/22/25 13:11 Source: patient Mode of arrival: ambulatory Limitations: no limitations History of Present Illness HPI narrative: 74 y/o female with hx breast cancer and reconstructive surgery presented for c/o right breast pain. Onset Yesterday, however she reports intermittent right breast pain since surgery. Says last night the pain was more severe than before. Also noted a red flaky firm area to the underside of the right breast today. Denies nausea, vomiting, diarrhea, fevers or chills. Pt had been referred to breast surgeon for the pains, but she did not follow up. Pt had reconstructive surgeries at [facility]. Patient also admits to extreme fatigue over the past week, stating she is sleeping several hours a day and does not have the energy to do her normal activities. She reports bilateral lower extremity swelling, stating she recently increased amlodipine about a month ago after she was seen in the ER for palpitations and noted to have elevated BP. Also reports right mid back pain. She denies chest pain, palpitations, dizziness. Related Data Home Medications ?Medication ?Instructions ?Recorded ?Confirmed ?Last Taken ?Type cholecalciferol (vitamin D3) 25 1,000 unit PO BID 07/30/19 12/05/24 11/02/22 History mcg (1,000 unit) capsule multivitamin 1 tablet PO DAILY 01/14/20 12/05/24 11/02/22 History docusate sodium 100 mg capsule 100 mg PO DAILY 10/27/22 12/05/24 11/02/22 Histor y vitamin B complex (B 1 tablet PO DAILY 07/10/23 12/05/24 Unknown History Complex-Vitamin B12 tablet) ascorbate calcium (vitamin C) 500 1,200 mg PO DAILY 10/24/24 12/05/24 Unknown History mg tablet tolterodine 4 mg capsule,extended mg PO 10/24/24 12/05/24 Unknown History release 24 hr calcium carbonate 600 mg PO DAILY 01/16/25 Unknown History finasteride 1 mg tablet mg 02/22/25 Unknown History Allergies Allergy/AdvReac Type Severity Reaction Status Date / Time No Known Drug Allergies Allergy Unknown Unknown Verified 02/22/25 13:08 Review of Systems Review of Systems: ROS per HPI All systems reviewed & are unremarkable except as noted in HPI and below [facility] Past Medical History Medical History Arthritis of carpometacarpal (CMC) joint of right thumb Radial styloid tenosynovitis of right hand Overweight (BMI 25.0-29.9) Alopecia areata HTN (hypertension), benign Hypercalcemia Hyperkalemia Hyperlipidemia LDL goal <100 Kidney disease, chronic, stage III (moderate, EGFR 30-59 ml/min) 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 Postmenopausal (~2003) BMI 27.0-27.9,adult Breast cancer Anemia BMI 26.0-26.9,adult Vitamin D deficiency Anxiety Hair thinning Fallen bladder Encounter for breast reconstruction following mastectomy Surgical History Surgical History History of cataract surgery Status post arthroscopy of left knee surgery February 2020 H/O thumb surgery 2007 left thumb CMC arthroplasty - [place] H/O toe surgery Hx of LASIK H/O: hysterectomy (~2010) H/O dilation and curettage History of hysteroscopy History of mastectomy (~2003) right Hx of tonsillectomy Family History Family History Mother Family history of elevated blood lipids Asthma Thyroid disease Sibling Thyroid disease Father Alcoholism Son Anxiety Social History Social History Years smoked: 12 Smoking status: Former smoker Tobacco type: cigarettes Second hand tobacco smoke exposure: No Smoking end date: 08/21/79 Additional smoking assessment comments: STATES 1 1/2PK/DAY/14YRS-QUIT 1979 Alcohol intake: never Substance use: never Substance use type: does not use Lack of Transportation: No Lack of Food: Never True Current Housing: I Have Housing Concerned About Future Housing: No Difficulty Paying Gas/Electric Bills: No Difficulty Paying for Meds: No Currently Unemployed: No Education: High School Diploma/GED Difficulty w/ Childcare or Family Care: No Living arrangements: with family Additional living arrangements comments: [place] - Occupation/Education: retired Gender identity (if verbalized by the patient): Female Spiritual care concerns: No Comments At time of signature, I have reviewed and agree with nursing past medical, surgical, social and family history unless otherwise noted. Please see nursing chart for further information. There is no relevant family history pertinent to the presenting complaint Exam Narrative: GENERAL: Well-appearing, and in no acute distress. HEAD: Normocephalic, atraumatic. EYES: EOMI. No redness or drainage. Conjunctivae normal. ENT: Mucous membranes pink and moist. CHEST: No respiratory distress. Clear to auscultation. HEART: Regular rate and rhythm. No murmur appreciated. Normal peripheral pulses. ABDOMEN: Soft, nontender, nondistended, normal active bowel sounds. 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 EXTREMITIES: Normal range of motion. 1+ bilateral ankle and pedal edema. SKIN: the underside of the right breast has 11 cm x 7 cm area of firm induration with a center of fluctuance approximately 3 cm, the skin appears flaky. Warm, dry, Capillary refill normal. Normal skin turgor. NEURO: No focal deficits. Alert and oriented x3. Gait steady. PSYCH: Normal affect. Course Course Emergency Course: Patient is aware of diagnosis, understands and agrees to treatment plan. Anticipatory guidance given. Patient agrees to follow-up as directed and is aware of reasons to seek care at the emergency department. Portions of this record may have been created with voice recognition software Level of Care: Express Care Visit Vital Signs Vital signs: Vital Signs Temperature 98.4 F 02/22/25 13:12 Pulse Rate 80 02/22/25 13:12 Respiratory Rate 16 02/22/25 13:12 Blood Pressure 141/88 H 02/22/25 13:12 Pulse Oximetry 98 02/22/25 13:12 Temperature 98.4 F 02/22/25 13:12 Pulse Rate 80 02/22/25 13:12 Respiratory Rate 16 02/22/25 13:12 Blood Pressure 141/88 H 02/22/25 13:12 Pulse Oximetry 98 02/22/25 13:12 Transfer Transfered to: [facility] Transportation: Other ( private vehicle) Transfer rationale: Pt is agreeable to transfer. Requests transfer to [facility] via private vehicle. Risks of transportation reviewed with pt including injury, worsening of condition and . v/u. will be driving pt; Report called to hospital, spoke with [place] RN. accepting physician was not provided by RN or transfer center as they stated this is an outpt facility therefore not a transfer. Pt is in stable condition at time of transfer. Advised to remain NPO and go directly to the hospital. Medical Decision Making MDM Narrative Medical decision making narrative: Discussed physical exam findings.Advised ER transfer given pt's cellulitis to the right breast and hx reconstructive surgery. Pt has decreased sensation at this site. Pt also reporting fatigue, leg swelling, and back pain. Attempted transfer to [place], ER physician advised the likelihood of additional transfer to [facility] where pt had her breast surgeries, pt was then notified of the possiblity of additional transfer. She elected to transfer to [facility]. Differential Diagnosis Differential Diagnosis: Abscess, cellulitis, capsular contracture, dermatitis Vital Signs Vital Signs: Vital Signs Temperature 98.4 F 02/22/25 13:12 Pulse Rate 80 02/22/25 13:12 Respiratory Rate 16 02/22/25 13:12 Blood Pressure 141/88 H 02/22/25 13:12 Pulse Oximetry 98 02/22/25 13:12 Temperature 98.4 F 02/22/25 13:12 Pulse Rate 80 02/22/25 13:12 Respiratory Rate 16 02/22/25 13:12 Blood Pressure 141/88 H 02/22/25 13:12 Pulse Oximetry 98 02/22/25 13:12 reviewed Discharge Plan Discharge Clinical Impression: Cellulitis of right breast Patient Disposition: Acute Care Hospital Condition: Stable Patient Language: Montenegrin Prescriptions: No Action finasteride 1 mg tablet cholecalciferol (vitamin D3) 1,000 unit capsule 1,000 unit PO BID multivitamin Tablet 1 tablet PO DAILY docusate sodium 100 mg capsule 100 mg PO DAILY tolterodine 4 mg capsule,extended release 24hr PO ascorbate calcium (vitamin C) 500 mg tablet 1,200 mg PO DAILY vilazodone [Viibryd] 40 mg tablet 40 mg PO DAILY Qty: 90 1RF Rx Instructions: must administer with a meal/food calcium carbonate 600 mg calcium (1,500 mg) tablet 600 mg PO DAILY vitamin B complex [B Complex-Vitamin B12] Tablet 1 tablet PO DAILY lorazepam 1 mg tablet 1 mg PO TID PRN (Reason: anxiety) Qty: 90 3RF amlodipine 10 mg tablet 10 mg PO DAILY Qty: 90 0RF atorvastatin 10 mg tablet 10 mg PO HS Qty: 90 1RF omeprazole 40 mg capsule,delayed release(DR/EC) 40 mg PO BID Qty: 180 1RF Follow-up/Referrals: Familia Abad MD [Primary Care Provider] - Time of Disposition: 14:51
[2025-02-22 13:12] VITALS: BP 141/88; PULSE 80; RESP 16; TEMP 36.9; O2SAT 98
== END 2025-02-22 14:10 | disposition short-term general hospital (02) ==
PROVIDERS: Emergency Provider Nurse Practitioner Family; PCP Family Medicine
DX: N61.0 Mastitis without abscess (principal); I12.9 Hypertensive chronic kidney disease with stage 1 through stage 4 chronic kidney disease, or unspecified chronic kidney disease; N18.30 Chronic kidney disease, stage 3 unspecified; E78.5 Hyperlipidemia, unspecified; E55.9 Vitamin D deficiency, unspecified; F41.9 Anxiety disorder, unspecified; L63.9 Alopecia areata, unspecified; Z85.3 Personal history of malignant neoplasm of breast; Z90.11 Acquired absence of right breast and nipple
CPT/HCPCS: 99212; G0463

== ENCOUNTER 2025-03-17 08:33 | Outpatient (CLI) | payer MEDICARE, SELFPAY ==
--- NOTE | ~2025-03-17 | XR_ITS ---
XR lumbar spine 2-3V 03/17/2025 09:02 Indication: Back pain Procedure: 3 views lumbar spine Comparison: 06/03/2010 Findings: Accentuated lumbar lordosis. There is levoscoliosis. There is disc narrowing at all lumbar levels. There is advanced multilevel facet hypertrophy. Pelvic rings intact. Mild osteoarthritis of t he hips. There is atherosclerosis of the aorta. No acute fracture, subluxation or dislocation. Impression: 1: Severe lumbar spondylosis with levoscoliosis centered at L2. Reviewed, dictated and finalized at location A. Impression: 1: Severe lumbar spondylosis with levoscoliosis centered at L2.
--- NOTE | ~2025-03-17 | XR_ITS ---
XR_[id number]_CR 03/17/2025 09:02 Indication: Neck pain Procedure: 3 views cervical spine Comparison: 07/01/2023 Findings: Normal cervical lordosis. There is multilevel uncinate and facet hypertrophy. Lung apices a re normal. No prevertebral soft tissue swelling. Odontoid process is no well visualized on the AP vie w. There is atherosclerosis of the aorta. Lateral masses normally aligned. Impression: 1: Severe cervical spondylosis most advanced at C5-6 and C6-7 with progression since 07/01/2023. Reviewed, dictated and finalized at location A. Impression: 1: Severe cervical spondylosis most advanced at C5-6 and C6-7 with progression since 07/01/2023.
--- NOTE | ~2025-03-17 | XR_ITS ---
XR thoracic spine 2V 03/17/2025 09:02 Indication: Back pain Procedure: 3 views thoracic spine Comparison: 10/19/2017 Findings: There are multiple chronic mild wedge compression deformities of the midthoracic spine. The re is multilevel disc narrowing and endplate hypertrophy with accentuated kyphosis. No acute fracture or traumatic malalignment. There is levoscoliosis. There are surgical clips overlying the right lowe r chest. Right basilar atelectasis/scarring. There is atherosclerosis of the aorta. Impression: 1: Severe thoracic spondylosis with levoscoliosis. There has been progression since 10/19/2017. Reviewed, dictated and finalized at location A. Impression: 1: Severe thoracic spondylosis with levoscoliosis. There has been progression s torsten 10/19/2017.
== END 2025-03-17 08:34 | disposition home or self-care (01) ==
PROVIDERS: PCP Nurse Practitioner Family; Visit Provider Nurse Practitioner Family
DX: M47.814 Spondylosis without myelopathy or radiculopathy, thoracic region (principal); M47.816 Spondylosis without myelopathy or radiculopathy, lumbar region; M41.86 Other forms of scoliosis, lumbar region; M41.84 Other forms of scoliosis, thoracic region; M47.812 Spondylosis without myelopathy or radiculopathy, cervical region
CPT/HCPCS: 72040; 72070; 72100

== ENCOUNTER 2025-04-28 07:48 | Emergency (ER) | payer MEDICARE, SELFPAY ==
--- NOTE | ~2025-04-28 | CT_ITS ---
EXAMINATION: CT abdomen pelvis w con DATE: 04/28/2025 09:01 INDICATION: Abdominal pain TECHNIQUE: Computed tomography (CT) of the abdomen and pelvis was performed with 100 mL Omnipaque-350 intravenous contrast. Automated exposure control and iterative reconstruction technique were employed. The dose-length product was 393.96 mGy-cm. COMPARISON: None FINDINGS: Lung bases are clear. Heart size is normal. No pericardial or pleural effusion. There are few scattered low-attenuation hepatic cysts the largest measuring 2.0 cm. Gallbladder, spleen, pancreas, bilateral adrenal glands and right kidney are normal. 1.8 cm left renal cyst. Bladder is normal. The uterus is not identified and has likely been surgically resected. Mild scattered diverticulosis. There is focal wall thickening and mild inflammatory stranding at the mid sigmoid colon consistent with diverticulitis. No abscess or free intraperitoneal gas or fluid. No pathologically enlarged abdominal or pelvic lymphadenopathy. Mild lumbar and moderate lower thoracic spondylosis. IMPRESSION: 1. Radiographically uncomplicated sigmoid diverticulitis. Reviewed, dictated and finalized at location A.
[2025-04-28 07:57] VITALS: BP 190/87; PULSE 86; RESP 19; TEMP 36.7; O2SAT 96
--- OUTSIDE RECORDS SUMMARY | 2025-04-28 07:57 | XMS_ITS | Clinical Summary ---
Author Organization [facility] Address [address] [place] [address] Care Team Providers Care Odd Jobs Day Worker Name Role Phone Familia Abad MD Primary Care Provider [phone] [phone] Allergies No known active allergies Medications amLODIPine [...] Encounters Date Type Department Care Team Description 02/22/2025 4:59 PM CDT - 02/22/2025 5:56 PM CDT Emergency [facility] Emergency Department [address] [place] [address] Breast pain (Primary Dx); History of reconstruction of right breast Discharge Disposition: Discharge to home or self care from Last 3 Months Surgical History Surgery Date Site/Laterality Comments SIMPLE MASTECTOMY Simple Mastectomy Left Breast - (Added by TW Conv) BREAST RECONSTRUCTION THUMB SURGERY HYSTEROSCOPY DILATION AND CURETTAGE OF UTERUS HYSTERECTOMY Medical History Medical History Date Comments Hypertension 02/06/2018 Marked yes on general health questionnaire Family History Medical History Relation Name Comments Hypertension Father Family history of hypertension - (Added by TW Conv) Hypertension Mother Family history of hypertension - (Added by TW Conv) No Known Problems Sister 1 No [...] more drinks on one occasion? Never 10/28/2024 Personal Safety Answer Date Recorded Have you ever been in or are you currently in a harmful physical or emotional relationship or is someone making you feel afraid or unsafe? 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 Gender Identity Not on file Sexual Orientation Not on file Occupation Industry Job Start Date Job End Date retired Not on file Not on file Not on file Obstetrics History Last Filed Vital Signs Vital Sign Reading Time Taken Comments Blood Pressure 162/95 02/22/2025 3:43 PM CDT Pulse 78 02/22/2025 3:43 PM CDT Temperature 36.3 C (97.3 F) 02/22/2025 3:43 PM CDT Respiratory Rate 17 02/22/2025 3:43 PM CDT Oxygen Saturation 94% 02/22/2025 3:43 PM CDT Inhaled Oxygen Concentration - - Weight 85.7 kg (189 lb) 02/22/2025 3:43 PM CDT Height 165.1 cm (5' 5) 02/22/2025 3:43 PM CDT Body Mass Index 31.45 02/22/2025 3:43 PM CDT Plan of Treatment Health Maintenance Due Date Last Done Comments Breast Cancer Screening-Mammogram 1950 Colon Cancer Screening-Colonoscopy 1950 Depression Screening 1950 Fall Risk Assessment 1950 Hepatitis C Screening 1950 Osteoporosis Screening-Bone Density Scan 1950 Hepatitis B Screening 1969 Well Visit 65+ 2016 Pneumococcal vaccine 65+ (2 of 2 - PCV) 05/20/2017 05/20/2016 Zoster Vaccine (2 of 2) 02/16/2023 12/22/2022 Covid-19 Vaccine (7 - 2024-2 6 season) 2025 12/22/2022, 05/03/2022, 12/22/2021, Additional history exists Influenza Vaccine (#1) 2025 , 05/03/2021, 05/11/2018, Additional history exists DTaP/Tdap/Td Vaccine (4 - Td or Tdap) 03/01/2032 03/01/2022, 08/03/2018, 09/13/2006 Insurance AETNA MEDICARE GOLD AETNA MEDICARE GOLD Care Teams Odd Jobs Day Worker Relationship Specialty Start Date End Date Familia Abad MD PCP - General Family Medicine 02/15/23
[2025-04-28 08:03] VITALS: BP 152/89; PULSE 94; RESP 20; O2SAT 97
--- NOTE | 2025-04-28 08:08 | ED.GENADULT ---
HPI - General Adult General Chief complaint: Abdominal Pain Stated complaint: bowel blockage on CT scan Time Seen by Provider: 04/28/25 07:50 History of Present Illness HPI narrative: [age] old female present to the emergency department for evaluation of possible bowel obstruction. Patient reports on 04/16 she was diagnosed with a bowel obstruction by her GI physician from a CT scan. Patient then had a colonoscopy and he was unable to complete colonoscopy due to the obstruction. Patient has been taking MiraLax and Linzess. Patient states she had been passing some brown watery stool but even that has decreased. Time evaluation patient appears to be in no distress. Patient does have some lower abdominal tenderness to palpation. Patient declined medications for pain control at time of initial evaluation. Related Data Home Medications ?Medication ?Instructions ?Recorded ?Confirmed ?Last Taken ?Type cholecalciferol (vitamin D3) 25 1,000 unit PO BID 07/30/19 03/17/25 11/02/22 History mcg (1,000 unit) capsule multivitamin 1 tablet PO DAILY 01/14/20 03/17/25 11/02/22 History docusate sodium 100 mg capsule 100 mg PO DAILY 10/27/22 03/17/25 11/02/22 History vitamin B complex (B 1 tablet PO DAILY 07/10/23 03/17/25 Unknown History Complex-Vitamin B12 tablet) calcium carbonate 600 mg PO DAILY 01/16/25 03/17/25 Unknown History Allergies Allergy/AdvReac Type Severity Reaction Status Date / Time cefuroxime AdvReac Severe Hives Verified 03/17/25 08:00 Review of Systems Review of Systems: All systems reviewed & are unremarkable except as noted in HPI and below PMFSH Past Medical History Medical History Arthritis of carpometacarpal (CMC) joint of right thumb Radial styloid tenosynovitis of right hand Overweight (BMI 25.0-29.9) Alopecia areata HTN (hypertension), benign Hypercalcemia Hyperkalemia Hyperlipidemia LDL goal <100 Kidney disease, chronic, stage III (moderate, EGFR 30-59 ml/min) 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 Postmenopausal (~2003) BMI 27.0-27.9,adult Breast cancer Anemia BMI 26.0-26.9,adult Vitamin D deficiency Anxiety Hair thinning Fallen bladder Encounter for breast reconstruction following mastectomy Surgical History Surgical History History of cataract surgery Status post arthroscopy of left knee surgery February 2020 H/O thumb surgery 2007 left thumb CMC arthroplasty - [place] H/O toe surgery Hx of LASIK H/O: hysterectomy (~2010) H/O dilation and curettage History of hysteroscopy History of mastectomy (~2003) right Hx of tonsillectomy Family History Family History Mother Family history of elevated blood lipids Asthma Thyroid disease Sibling Thyroid disease Father Alcoholism Son Anxiety Social History Social History Years smoked: 12 Smoking status: Former smoker Tobacco type: cigarettes Second hand tobacco smoke exposure: No Smoking end date: 08/21/79 Additional smoking assessment comments: STATES 1 1/2PK/DAY/14YRS-QUIT 1979 Alcohol intake: never Substance use: never Substance use type: does not use Do You Feel Safe in your Home?: Yes Lack of Transportation: No Lack of Food: Never True Current Housing: I Have Housing Concerned About Future Housing: No Difficulty Paying Gas/Electric Bills: No Difficulty Paying for Meds: No Currently Unemployed: No Education: High School Diploma/GED Difficulty w/ Childcare or Family Care: No Living arrangements: with family Additional living arrangements comments: [place] - Occupation/Education: retired Gender identity (if verbalized by the patient): Female Spiritual care concerns: No Exam Narrative: APPEARANCE: Well appearing, no pain, no distress, well-nourished. HEAD: normocephalic, atraumatic. EYES: PERRLA/EOMI, conjunctivae clear. NOSE: Normal no drainage EARS:TMS clear with good light reflex. THROAT: Pharynx clear, no exudate. NECK: Supple. No adenopathy, no masses. RESPIRATORY: Airway patent, respirations nonlabored. Clear to auscultation bilaterally, no rales, rhonchi, wheezing. CARDIOVASCULAR: Regular rate and rhythm without murmurs rubs or gallops. ABDOMINAL: Left lower quadrant tenderness to palpation MUSCULOSKELETAL: Moves all extremities. Strength/ROM intact, No edema, No calf tenderness. NEURO: Alert. Cranial nerves II through XII intact. Grossly intact SKIN: Warm, dry. Normal Color Course Vital Signs Vital signs: Vital Signs Temperature 98.1 F 04/28/25 07:57 Pulse Rate 86 04/28/25 07:57 Respiratory Rate 19 04/28/25 07:57 Blood Pressure 190/87 H 04/28/25 07:57 Pulse Oximetry 96 04/28/25 07:57 Oxygen Delivery Room Air 04/28/25 07:57 Temperature 98.1 F 04/28/25 07:57 Pulse Rate 70 04/28/25 10:10 Respiratory Rate 20 04/28/25 10:10 Blood Pressure 147/89 H 04/28/25 10:10 Pulse Oximetry 99 04/28/25 10:10 Oxygen Delivery Room Air 04/28/25 07:57 Medical Decision Making MDM Narrative Medical decision making narrative: [age] old female presents emergency department for evaluation for issues with constipation and left lower quadrant abdominal pain. Patient is afebrile with no leukocytosis hemoglobin 13.2. Patient has no acute abnormalities on her CMP an INR of 1.0. CT scan did show evidence uncomplicated diverticulitis. Patient does have allergy is to cephalosporins patient was started on Cipro and Flagyl emergency department. Patient be discharged home with this. Patient was encouraged to continue her MiraLax and continue have close follow-up with GI. All questions concerns were addressed. Differential Diagnosis Differential Diagnosis: Bowel obstruction, constipation, colitis, diverticulitis, UTI Vital Signs Vital Signs: Vital Signs Temperature 98.1 F 04/28/25 07:57 Pulse Rate 86 04/28/25 07:57 Respiratory Rate 19 04/28/25 07:57 Blood Pressure 190/87 H 04/28/25 07:57 Pulse Oximetry 96 04/28/25 07:57 Oxygen Delivery Room Air 04/28/25 07:57 Temperature 98.1 F 04/28/25 07:57 Pulse Rate 70 04/28/25 10:10 Respiratory Rate 20 04/28/25 10:10 Blood Pressure 147/89 H 04/28/25 10:10 Pulse Oximetry 99 04/28/25 10:10 Oxygen Delivery Room Air 04/28/25 07:57 Lab Data Lab results reviewed: Yes I reviewed the patient's lab results. 04/28/25 08:08 04/28/25 08:08 Labs: Lab Results 04/28/25 Range/Units 08:08 WBC 7.5 (4.5-10.0) K/mm3 RBC 4.30 (4.2-5.4) M/mm3 Hgb 13.2 (12.0-15.0) g/dL Hct 39.6 (37.0-47.0) % MCV 92.1 (80-100) fl MCH 30.7 (26-34) pg MCHC 33.3 (32-36) g/dl RDW 12.9 (11.5-14.5) % Plt Count 228 (150-375) k/mm3 MPV 10.9 H (7.4-10.4) fl Immature Gran % (Auto) 0.3 (0-0.5) % Neut % (Auto) 62.1 (45.5-73.1) % Lymph % (Auto) 25.0 (18.3-44.2) % Harlan % (Auto) 10.7 H (2.6-8.5) % Eos % (Auto) 1.6 (0-4.4) % Baso % (Auto) 0.3 (0.2-1.2) % Lymph # (Auto) 1.86 (0.9-3.2) K/mm3 Harlan # (Auto) 0.8 H (0.1-0.6) K/mm3 Eos # (Auto) 0.1 (0-0.3) K/mm3 Baso # (Auto) 0.0 (0.0-0.1) K/mm3 Abs Immat Gran (auto) 0.02 (0.00-0.031) K/mm3 Absolute Neuts (auto) 4.6 (1.3-6.7) K/mm3 Absolute Nucleated RBC 0.000 (0.0-0.012) K/mm3 Nucleated RBC % 0.0 (0.0-0.2) % PT 13.0 (11.1-14.7) Seconds INR 1.0 APTT 24.2 (22.3-36.8) Seconds Sodium 138 (137-145) mmol/L Potassium 3.7 (3.4-5.0) mmol/L Chloride 103 (98-107) mmol/L Carbon Dioxide 26 (22-30) mmol/L Anion Gap 9 (4-12) mmol/L BUN 15 (7-17) mg/dL Creatinine 0.87 (0.7-1.0) mg/dL Estim Creat Clear Calc 53 ml/min Estimated GFR > 60 (59 - ) Glucose 116 H (65-110) mg/dL Lactic Acid 1.3 (0.7-2.0) mmol/L Calcium 9.5 (8.4-10.2) mg/dL Total Bilirubin 0.8 (0.2-1.3) mg/dL AST 38 H (14-36) U/L ALT 31 (6-35) U/L Alkaline Phosphatase 98 (38-126) U/L Total Protein 8.1 (6.3-8.2) g/dL Albumin 4.5 (3.5-5.1) g/dL Lipase 48 (23-300) U/L Imaging Data Radiologist's impression: Impressions Abdomen/Pelvis CT 04/28/25 09:06 IMPRESSION: 1. Radiographically uncomplicated sigmoid diverticulitis. Discharge Plan Discharge Clinical Impression: Diverticulitis Patient Disposition: Home Condition: Stable Instructions: Antibiotic Form, Diverticulitis (DC), Abdominal Pain (ED) Additional Instructions: Continue your MiraLax and drink plenty of fluids. Antibiotic as directed until completed. Have close follow-up with your primary care physician have close follow-up with GI. Patient Language: Kyrgyz Prescriptions: New metronidazole 500 mg tablet 500 mg PO Q12H 7 Days Qty: 14 0RF ciprofloxacin HCl [Cipro] 500 mg tablet 500 mg PO Q12H 7 Days Qty: 14 0RF Held tizanidine 4 mg tablet 4 mg PO QHS PRN (Reason: muscle spasticity) Qty: 30 0RF Hold Instructions: Resume on 05/05/25. Hold while on ciprofloxacin No Action cholecalciferol (vitamin D3) 1,000 unit capsule 1,000 unit PO BID multivitamin Tablet 1 tablet PO DAILY docusate sodium 100 mg capsule 100 mg PO DAILY vilazodone [Viibryd] 40 mg tablet 40 mg PO DAILY Qty: 90 1RF Rx Instructions: must administer with a meal/food calcium carbonate 600 mg calcium (1,500 mg) tablet 600 mg PO DAILY methylprednisolone [Medrol (Manolo)] 4 mg tablets,dose pack See Rx Instructions PO PER PKG DIR Qty: 21 0RF Rx Instructions: PO PER PKG DIR vitamin B complex [B Complex-Vitamin B12] Tablet 1 tablet PO DAILY bacitracin 500 unit/gram ointment 1 applic topical BID Qty: 14 0RF lorazepam 1 mg tablet 1 mg PO TID PRN (Reason: anxiety) Qty: 90 3RF amlodipine 10 mg tablet 10 mg PO DAILY Qty: 90 0RF atorvastatin 10 mg tablet 10 mg PO HS Qty: 90 1RF omeprazole 40 mg capsule,delayed release(DR/EC) 40 mg PO BID Qty: 180 1RF Follow-up/Referrals: Familia Abad MD [Primary Care Provider, Family Practice] Eduardo Chin MD [Physician, Gastroenterology]
[2025-04-28] MEDS: LACTATED RINGERS 1,000 ML 999 ML IV CONT (08:19)
[2025-04-28 08:24] LABS: Hematocrit 39.6 % (37.0-47.0); Hemoglobin 13.2 g/dL (12.0-15.0); Immature Granulocyte Percent A 0.3 % (0-0.5); Lymphocytes Absolute Auto 1.86 K/mm3 (0.9-3.2); Mean Corpuscular HGB Conc 33.3 g/dl (32-36); Mean Corpuscular Hemoglobin 30.7 pg (26-34); Mean Corpuscular Volume 92.1 fl (80-100); Nucleated Red Blood Cells Absolute Auto 0.000 K/mm3 (0.0-0.012); Nucleated Red Blood Cells Perc 0.0 % (0.0-0.2); Platelet Count Result 228 k/mm3 (150-375); Red Blood Count 4.30 M/mm3 (4.2-5.4); White Blood Count 7.5 K/mm3 (4.5-10.0)
[2025-04-28 08:33] LABS: Alanine Aminotransferase 31 U/L (6-35); Albumin Level 4.5 g/dL (3.5-5.1); Alkaline Phosphatase 98 U/L (38-126); Anion Gap 9 mmol/L (4-12); Aspartate Amino Transferase 38 U/L (14-36); Bilirubin,Total 0.8 mg/dL (0.2-1.3); Blood Urea Nitrogen 15 mg/dL (7-17); Calcium 9.5 mg/dL (8.4-10.2); Carbon Dioxide 26 mmol/L (22-30); Chloride 103 mmol/L (98-107); Estimated CRCL calculation 53 ml/min; Estimated Glomerular Filt Rate > 60; Glucose 116 mg/dL (65-110); Lipase 48 U/L (23-300); Potassium 3.7 mmol/L (3.4-5.0); Sodium 138 mmol/L (137-145); Total Protein 8.1 g/dL (6.3-8.2)
[2025-04-28 08:49] LABS: INR 1.0; Prothrombin Time 13.0 Seconds (11.1-14.7)
[2025-04-28 08:50] LABS: Partial Thromboplastin Time 24.2 Seconds (22.3-36.8)
[2025-04-28] MEDS: CIPROFLOXACIN 500 MG TAB PO (10:03)
[2025-04-28 10:10] VITALS: BP 147/89; PULSE 70; RESP 20; O2SAT 99
== END 2025-04-28 10:38 | disposition home or self-care (01) ==
PROVIDERS: Emergency Provider Emergency Medicine; PCP Family Medicine
DX: K57.32 Diverticulitis of large intestine without perforation or abscess without bleeding (principal); I12.9 Hypertensive chronic kidney disease with stage 1 through stage 4 chronic kidney disease, or unspecified chronic kidney disease; E55.9 Vitamin D deficiency, unspecified; N18.30 Chronic kidney disease, stage 3 unspecified; E78.5 Hyperlipidemia, unspecified; M18.9 Osteoarthritis of first carpometacarpal joint, unspecified; F41.9 Anxiety disorder, unspecified; Z85.3 Personal history of malignant neoplasm of breast; Z86.2 Personal history of diseases of the blood and blood-forming organs and certain disorders involving the immune mechanism; Z87.891 Personal history of nicotine dependence; Z90.11 Acquired absence of right breast and nipple; Z90.710 Acquired absence of both cervix and uterus; Z98.49 Cataract extraction status, unspecified eye
CPT/HCPCS: 36415; 74177; 80053; 83605; 83690; 85025; 85610; 85730; 96360; 99284; A9270; J7120; Q9967

== ENCOUNTER 2025-04-30 09:50 | Outpatient (CLI) | payer MEDICARE, SELFPAY ==
--- NOTE | ~2025-04-30 | MR_ITS ---
MR breast BI wo/w con INDICATION:75 year old female with history of mastitis without abscess. Patient has left breast pain with changing shape and a red rash. Prior history of right mastectomy in 2003 for breast cancer and reconstruction with bilateral silicone implants. She presents for follow-up of treated right breast cancer. TECHNIQUE: MRI of the breasts perform using standard protocol pre-and post IV contrast with the following sequences: Axial T2 STIR, axial T1, axial vibrant T1 with fat suppression precontrast and multiphasic postcontrast. 17 cc MultiHance administered intravenously. COMPARISON: Mammogram 05/08/2024 through 10/30/2020. FINDINGS: There is Scattered fibroglandular tissue that demonstrates Mild and is Not applicable. Right breast: There is a intact retropectoral silicone implant in place with moderate volume periimplant fluid collection. Postmastectomy changes are noted with no evidence of abnormal enhancing lesion within the surrounding tissues. No evidence of signal abnormalities in the axillary or internal mammary node distributions. LEFT BREAST: There is a intact single-lumen retropectoral silicone implants in place. No periimplant fluid collection seen. No signal abnormalities on precontrast sequences. There is minimal background parenchymal enhancement. No enhancing lesions following contrast administration. No areas of enhancement meeting threshold criteria on CAD analysis. No evidence of signal abnormalities in the axillary or internal mammary node distributions.] IMPRESSION: 1: Right breast: Periimplant fluid collection around an intact retropectoral silicone implant. 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 Post mastectomy changes with no evidence of tumor recurrence. 2: Left breast: Negative. No evidence of malignancy. There is no MRI finding to explain patient's left breast pain and change in shape. 3. The chest wall and axillary portion of the examination unremarkable. RECOMMENDATIONS: Aspiration of right breast periimplant fluid collection and testing for lymphoma cells. Aspiration can be performed under ultrasound guidance. Annual follow-up left mammography. Clinical management of patient's symptoms. Reviewed, dictated and finalized at location B. IMPRESSION: 1: Right breast: Periimplant fluid collection around an intact retropectoral s ilicone implant. The presence of periimplant fluid collection raises suspicion for breast implan t associated lymphoma. Post mastectomy changes with no evidence of tumor recurrence. 2: Left breast: Negative. No evidence of malignancy. There is no MRI finding to explain patient's left breast pain and change in shape. 3. The chest wall and axillary portion of the examination unremarkable. RECOMMENDATIONS: Aspiration of right breast periimplant fluid collection and testing for lympho ma cells. Aspiration can be performed under ultrasound guidance. Annual follow-up left mammography. Clinical management of patient's symptoms.
--- OUTSIDE RECORDS SUMMARY | 2025-04-30 10:41 | XMS_ITS | Clinical Summary ---
Author Organization 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
== END 2025-04-30 09:51 | disposition home or self-care (01) ==
PROVIDERS: PCP Family Medicine; Visit Provider Surgery
DX: T85.44XA Capsular contracture of breast implant, initial encounter (principal); C50.919 Malignant neoplasm of unspecified site of unspecified female breast
CPT/HCPCS: 77049; A9577; C8908

== ENCOUNTER 2025-05-12 08:10 | Outpatient (CLI) | payer MEDICARE, SELFPAY ==
--- NOTE | ~2025-05-12 | MM_ITS ---
EXAMINATION: MM screening debbie implant LT w crystal INDICATION: Asymptomatic, referred for screening mammogram. History of Right mastectomy, LEFT breast augmentation with implant. COMPARISON: 05/08/2024 through 11/10/2021 TECHNIQUE: Digital Breast Tomosynthesis CC, MLO, and implant displaced CC and MLO views of Left breast were obtained with computer-aided detection to assist in interpretation of the study. FINDINGS: There are scattered areas of fibroglandular density. Left breast Retropectoral Silicone implants appears intact. No focal dominant mass, architectural distortion, or suspicious microcalcifications are identified. There are no features to suggest malignancy. IMPRESSION: 1. No evidence of malignancy in the Left breast. 2. Left breast Retropectoral Silicone implants appears intact. Recommend continued screening mammography BI-RADS 1, NEGATIVE Reviewed, dictated and finalized at location B.
--- OUTSIDE RECORDS SUMMARY | 2025-05-12 08:42 | XMS_ITS | Clinical Summary ---
Author Organization [facility] Address [address] [place] [address] Care Team Providers Care Color Technician Name Role Phone Familia Abad MD Primary Care Provider [phone] [phone] Allergies No known active allergies Medications amLODIPine [...] CDT - 02/22/2025 5:[address] 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
== END 2025-05-12 08:11 | disposition home or self-care (01) ==
LOC: ANHFOHIMG 08:11
PROVIDERS: PCP Family Medicine; Visit Provider Obstetrics & Gynecology Gynecology
DX: Z12.31 Encounter for screening mammogram for malignant neoplasm of breast (principal)
CPT/HCPCS: 77063; 77067

== ENCOUNTER 2025-05-15 06:59 | Outpatient (CLI) | payer MEDICARE, SELFPAY ==
--- NOTE | ~2025-05-15 | MMUS_ITS ---
EXAMINATION: US_BCARIMG_US, MM post biopsy diagnostic RT INDICATION: 75 year old female with right breast periimplant fluid collection seen on MRI completed on 04/30/2025, who presents for ultrasound-guided aspiration procedure. TECHNIQUE: Survey imaging of the right breast was performed. The preprocedure ultrasound imaging of the left breast revealed a large periimplant fluid collection that contains low level internal echoes. The largest pocket that measure 7.3 x 2.4 cm is located in the inferior aspect of the breast. The fluid collection at the Inferior right breast is targeted for aspiration. The procedure and its risk and benefits were discussed with the patient. Risks included but were not limited to implant rupture, pain, bleeding and infection. The patient verbalized understanding and provided written consent. A time-out was performed to document the patient's name, date of , and site of procedure. The lower outer quadrant of the patient's right breast was prepped and draped in usual sterile fashion. 1% lidocaine was used for local anesthesia. Utilizing ultrasound guidance, a 18-gauge needle was advanced into the lesion in the fluid pocket in the inferior right breast. Aspiration was performed. Approximately 40 cc of brownish colored fluid was aspirated. The fluid was sent for evaluation of malignancy lymphoma cells as well as for Gram stain and culture with sensitivity. Post aspiration mammogram of the right breast obtained demonstrate silicone implant. The patient tolerated procedure without immediate complication. Sterile bandages were applied over the aspiration site(s).] IMPRESSION: 1. Successful aspiration of right periimplant fluid collection. Pathology is pending. Reviewed, dictated and finalized at location B. IMPRESSION: 1. Successful aspiration of right periimplant fluid collection. Pathology is pending.
--- OUTSIDE RECORDS SUMMARY | 2025-05-15 07:02 | XMS_ITS | Clinical Summary ---
Author Organization [facility] Address [address] [place] [address] Care Team Providers Care Billing Machine Operator Name Role Phone Familia Abad MD Primary Care Provider [phone] [phone] Allergies No known active allergies Medications amLODIPine [...] CDT - 02/22/2025 5:56 PM CDT Emergency 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
--- NOTE | 2025-05-15 09:57 | CY_PTH ---
PATIENT: Mouna Sahu LOC: ANHFOHIMG #:[id number] AGE/SX: 75/F ROOM: RE05/15/[address]: Gail Michael MD : 1950 BED: DIS: 05/15/2025 SPEC #: [id number] RECD: 05/15/25 10:22 STATUS: DIPTI REQ #: [id number] FAMILIA: 05/15/25 09:[address]: Gail Michael DEPT: [facility] Cytology RECD BY: Cherelle Watson ENTERED: 05/15/25 10:23 SP TYPE: Cytology OTHR DR: Familia Abad MD Tissues: A - Cytology Fluid B - Flow Procedures: Day Keratin Immunoperoxidase Hematoxylin and Eosin Stain Cell Block CD3 Cytopathology Cytospin Flow Cytometry
== END 2025-05-15 07:00 | disposition home or self-care (01) ==
PROVIDERS: PCP Family Medicine; Visit Provider Surgery
DX: N61.0 Mastitis without abscess (principal); R92.8 Other abnormal and inconclusive findings on diagnostic imaging of breast
CPT/HCPCS: 19000; 76942; 77065; 87070; 87075; 87205; 88108; 88184; 88185; 88305; 88342

== ENCOUNTER 2025-06-03 15:47 | Outpatient (CLI) | payer MEDICARE, SELFPAY ==
--- OUTSIDE RECORDS SUMMARY | 2025-06-03 15:00 | XMS_ITS | Encounter Summary ---
Author Organization [facility] [employer] [facility] Address [address] [place] [address] Care Team Providers Care Bead Cutter Name Role Phone Unavailable Primary Care Provider Unavailabl e Reason for Visit * Reason Comments Establish Care Cancer Encounter Details Date Type Department Care Team (Late st Contact Info) Description 06/03/2025 3:00 PM CDT Office Visit [facility] Oncology and Hematology - [place] [address] [facility] [address] [place] [address] Alfredo Bang MD [address] [facility] [address] [place] [address] Anaplastic ALK-positive large cell lymphoma, unspecified body region (CMS/HCC) (Primary Dx) Social History Tobacco Use Types Packs/Day Years Used Date Smoking Tobacco: Former Cigarettes 1.5 14 1 - 06/03/1980 Smokeless Tobacco: Never Alcohol Use Standard Drinks/Week Comments Not Currently 0 (1 standard drink = 0.6 oz pur e alcohol) Comments Unknown Sex and Gender Information Value Date Recorded Sex Assigned at Not on file Legal Sex Female 9:20 AM CDT Gender Identity Not on file Sexual Orientation Not on file documented as of this encounter Last Filed Vital Signs Vital Sign Reading Time Taken Comments Blood Pressure 163/88 06/03/2025 3:05 PM CDT Pulse 87 06/03/2025 3:02 PM CDT Temperature 36.3 C (97.3 F) 06/03/2025 3:02 PM CDT Respiratory Rate 15 06/03/2025 3:02 PM CDT Oxygen Saturation 94% 06/03/2025 3:02 PM CDT Inhaled Oxygen Concentration - - Weight 84.9 kg (187 lb 3.2 oz) 06/03/2025 3:02 P M CDT Height 165.1 cm (5' 5) 06/03/2025 3:02 PM CDT Body Mass Index 31.15 06/03/2025 3:02 PM CDT documented in this encounter Progress Notes * Alfredo Bang MD - 06/03/2025 4:37 PM CDT Hematology-oncology consult Note Requesting Physician Gail Michael MD Primary Care Physician No primary care provider on file. Problem list There is no problem list on file for this patient. Previous TREATMENT ? Measurable Disease ? Reason for Visit Mouna Solomon is a 75 y.o. female who was referred for consultation for breast implant associated lymphoma. History of present illness This is a pleasant 75-year-old female who was diagnosed with right- sided breast cancer and had mastectomy done in 2003 with TRAM flap reconstruction and implant. Patient also had left-sidedbreast implant done at the same time. Patient developed some hardening of the right breast implant and discomfort started about a year ago. She denies any night sweats fever chills and weight loss. Patient was seen by Dr. Michael and aspiration was recommended. Patient also had bilateral breast MRIdone on April 30 that showed right breast stephy-implant fluid collection suspicious for lymphoma. 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 She denies any otherhistory of lymphoma. She denies any lymphadenopathy. No other new complaints. Past Medical History Past Medical History: Diagnosis Date Depression Hyperlipidemia Hypertension Malignant neoplasm (CMS/HCC) Surgical History Past Surgical History: Procedure Laterality Date HX HYSTERECTOMY HX MASTECTOMY Medications Current Outpatient Medications Medication Sig Dispense Refill amLODIPine (NORVASC) 10 mg tablet Take 1 Tablet by mouth daily. LORazepam (ATIVAN) 1 mg tablet Take 1 mg by mouth. CALCIUM CARBONATE-VITAMIN D3 ORAL Take by mouth. CYANOCOBALAMIN, VITAMIN B-12, ORAL Take by mouth. multivitamin (DAILY-CYNDY) tablet Take 1 Tablet by mouth daily. CALCIUM CARBONATE ORAL Take by mouth. ASCORBIC ACID, VITAMIN C, ORAL Take by mouth. vilazodone (VIIBRYD) 10 mg Tablet Take by mouth daily. atorvastatin (LIPITOR) 10 mg tablet Take 10 mg by mouth daily at bedtime. omeprazole (PriLOSEC) 40 mg Capsule, Delayed Release(E.C.) Take 40 mg by mouth 2 times daily. No current facility-administered medications for this visit. Allergies Allergies Allergen Reactions Cefuroxime Rash Immunizations: There is no immunization history on file for this patient. Family History Family History Problem Relation Name Age of Onset No Known Problems Father No Known Problems Mother Heart Disease Brother COPD Brother No Known Problems Brother No Known Problems Sister No Known Problems Sister No Known Problems Child No Known Problems Child Social History Social History Tobacco Use Smoking status: Former Current packs/day: 0.00 Average packs/day: 1.5 packs/day for 14.0 years (21.0 ttl pk-yrs) Types: Cigarettes Start date: 06/03/1966 Quit date: 06/03/1980 Years since quittin.0 Smokeless tobacco: Never Substance Use Topics Alcohol use: Not Currently Review of Systems Constitutional: Patient did not mention fever; no night sweats; no anorexia; no weight loss; no fatique NEENT: Patient did not mention headache; no change in vision; no change in hearing; no sore throat;no dysphagia Respiratory: Patient did not mention shortness of breath; no pleuritic chest pain; no cough; no hemoptysis Cardiac: Patient did not mention cardiac-like chest pain; no palpitations; no orthopnea; no PND; noDOE Breasts: Patient did not mention tenderness; no masses GI: Patient did not mention abdominal pain; no nausea; no vomiting; no diarrhea; no hematochezia; no melena : Patient did not mention dysuria; no frequency; no hesitancy; no hematuria MANAGER COUNCIL: Musculosketetal: Patient did not mention bone pain; no arthralgia; no joint swelling; no myalgia; Skin: Patient did not mention pruritis; no rash; no petechiae; no ecchymoses Endocrine: Patient did not mention polydipsia; no polyuria; no unusual weight gain Neuro: Patient did not mention headache; no change in vision; no sensory changes; no muscle weakness; no confusion; no seizures Psych: Patient did not mention anxiety; no depression; Physical Exam Vitals: As per nursing note Constitutional: Well developed, well nourished, no acute distress, non-toxic appearance Teeth and gum. No signs of infection or swelling. Eyes: PERRL, conjunctiva normal HEENT: Atraumatic, external ears normal, nose normal, oropharynx moist, no pharyngeal exudates. no sinus tenderness Neck- normal range of motion, no tenderness, supple Respiratory: No respiratory distress, normal breath sounds, no rales, no wheezing Breasts: Hardening and discomfort of the right breast implant noted. There is no axillary lymphadenopathy. Left breast implant showed no masses and lymphadenopathy. Cardiovascular: Normal rate, normal rhythm, no murmurs, no gallops, no rubs GI: Soft, nondistended, normal bowel sounds, nontender, no splenomegaly, no hepatomegaly, no mass, no rebound, no guarding : No costovertebral angle tenderness Musculoskeletal: No edema, no tenderness, no deformities. Back- no tenderness Integument: Well hydrated, no rash, Digits and nails inspection normal Lymphatic: No lymphadenopathy noted Neurologic: Alert & oriented x 3, CN 2-12 normal, normal motor function, normal sensory function, no focal deficits noted Psychiatric: Speech and behavior appropriate ? labs No results found for this or any previous visit (from the past 24 hours). Pathology ? Imaging & Other Studies Performance Status? Assessment / Plan: ? 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 Patient is a 75-year-old female with history of right sided breast cancer status post bilateral mastectomy and implant done in 2003. She developed hardening of the right breast implant about a year ago with some discomfort and erythema.Patient also had bilateral breast MRI done on April 30 that showed right breast stephy-implant fluid collection suspicious for lymphoma. 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 Gail Michael in surgery and Dr. Augusto Barcenas in pathology. I have also discussed this case with Dr. 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 I have discussed the rarity of this diagnosis with the patient. I will order PET scan for complete staging which has already been scheduled for this week. If the disease found to be localized to the capsule/implant then complete excision would be recommended. If patient has residual disease on the surgery then adjuvant treatment will be recommended that may include radiation therapy for local residual disease or possibly systemic therapy if nodes comes back positive and radiation not feasible. For more advanced stage II and IV disease systemic chemotherapy will be considered. I will discuss PET scan finding and my further recommendation with patient after the PET scan. I will order baselinelabs including CBC, CMP and LDH today. I have answered all the questions to patient's satisfaction. Hypertension. Patient is on amlodipine. Hyperlipidemia. She is on Lipitor. Thank you very much for allowing me to participate in Mouna Solomon's evaluation and management. Please feel free to contact if I can be of any further assistance in your patient???s care requiring hematology or oncology evaluation. Sincerely, ? ? Alfredo Bang M.D. cell TOBACCO COUNSELING She is not a tobacco/nicotine user. Alfredo Bang MD ,06/03/2025 4:37 PM ? Total time spent 60 minutes, two third of the total time spent counseling patient [id number]. CC:?Gail Michael MD documented in this encounter Plan of Treatment Upcoming Encounters Date Type Department Care Team (Late st Contact Info) Description 06/12/2025 4:30 PM CDT Telephone Check Up [facility] Oncology and Hematology [facility] [address] [facility] [address] [place] [address] Alfredo Bang MD [address] [facility] [facility] [address] [place] [address] Scheduled Orders Name Type Priority Associated Diagnoses Orde r Schedule CBC WITH DIFFERENTIAL Lab Stat Anaplastic ALK-positive large cell lymphoma, unspecified body region (CMS/HCC) Expected: 06/03/2025, Expires: 06/03/2026 COMPREHENSIVE METABOLIC PANEL Lab Stat Anaplastic ALK-positive large cell lymphoma, unspecified body region (CMS/HCC) Expected: 06/03/2025, Expires: 06/03/2026 LACTATE DEHYDROGENASE Lab Routine Anaplastic ALK-positive large cell lymphoma, unspecified body region (CMS/HCC) Expected: 06/03/2025, Expires: 06/03/2026 FLOW CYTOMETRY PANEL Lab Routine Anaplastic ALK-positive large cell lymphoma, unspecified body region (CMS/HCC) Expected: 06/03/2025, Expires: 06/03/2026 documented as of this encounter Visit Diagnoses Diagnosis Anaplastic ALK-positive large cell lymphoma, unspecified body region (CMS/HCC)- Primary documented in this encounter
--- NOTE | 2025-06-03 15:57 | CY_PTH ---
PATIENT: Mouna Sahu LOC: ANHLAB #:[id number] AGE/SX: 75/F ROOM: RE06/03/[address]: Alfredo Bang MD : 1950 BED: DIS: 06/03/2025 SPEC #: [id number] RECD: 06/04/25 06:42 STATUS: DIPTI REQ #: [id number] FAMILIA: 06/03/25 15:[address]: Alfredo Bang DEPT: [facility] Cytology RECD BY: Cherelle Watson ENTERED: 06/04/25 06:42 SP TYPE: Cytology OTHR DR: Familia Abad MD Tissues: A - Flow Procedures: Flow Cytometry
[2025-06-03 16:15] LABS: Hematocrit 40.5 % (37.0-47.0); Hemoglobin 13.2 g/dL (12.0-15.0); Immature Granulocyte Percent A 0.3 % (0-0.5); Lymphocytes Absolute Auto 2.87 K/mm3 (0.9-3.2); Mean Corpuscular HGB Conc 32.6 g/dl (32-36); Mean Corpuscular Hemoglobin 30.5 pg (26-34); Mean Corpuscular Volume 93.5 fl (80-100); Nucleated Red Blood Cells Absolute Auto 0.000 K/mm3 (0.0-0.012); Nucleated Red Blood Cells Perc 0.0 % (0.0-0.2); Platelet Count Result 241 k/mm3 (150-375); Red Blood Count 4.33 M/mm3 (4.2-5.4); White Blood Count 6.9 K/mm3 (4.5-10.0)
[2025-06-03 16:33] LABS: Alanine Aminotransferase 26 U/L (6-35); Albumin Level 4.5 g/dL (3.5-5.1); Alkaline Phosphatase 96 U/L (38-126); Anion Gap 5 mmol/L (4-12); Aspartate Amino Transferase 34 U/L (14-36); Bilirubin,Total 0.4 mg/dL (0.2-1.3); Blood Urea Nitrogen 16 mg/dL (7-17); Calcium 9.3 mg/dL (8.4-10.2); Carbon Dioxide 32 mmol/L (22-30); Chloride 103 mmol/L (98-107); Estimated Glomerular Filt Rate > 60; Glucose 104 mg/dL (65-110); Potassium 4.1 mmol/L (3.4-5.0); Sodium 140 mmol/L (137-145); Total Protein 8.2 g/dL (6.3-8.2)
--- OUTSIDE RECORDS SUMMARY | 2025-06-03 17:18 | XMS_ITS | Encounter Summary ---
Author Organization [facility] Address [address] [place] [address] Care Team Providers Care Beehive Kiln Charcoal Burner Name Role Phone Steve Jimenez MD Primary Care Provider [phone] Encounter Details Date Type Department Care Team (Late st Contact Info) Description 05/15/2025 Lab Requisition [facility] - Pathology Lab [address] [place] [id number] Amador Herrera MD [address] [place] [address] Mastitis without abscess; Other abnormal and inconclusive findings on diagnostic imaging of breast Social History Tobacco Use Types Packs/Day Years Used Date Smoking Tobacco: Never Assessed Comments Unknown Sex and Gender Information Value Date Recorded Sex Assigned at Not on file Legal Sex Female 9:06 AM CDT Gender Identity Not on file Sexual Orientation Not on file documented as of this encounter Plan of Treatment Not on file documented as of this encounter Procedures Procedure Name Priority Date/Time Associated Diagnosis Comments FLOW CYTOMETRY BODY FLUID Routine 05/15/2025 8:02 AM CDT Mastitis without abscess Other abnormal and inconclusive findings on diagnostic imaging of breast documented in this encounter Results * FLOW CYTOMETRY BODY FLUID (05/15/2025 8:02 AM CDT) Case Report Flow Cytometry Case: [id number] Authorizing Provider: Amador Herrera Collected: 05/15/2025 08:02 AM MD Cole Ordering Location: [facility] - Received: 05/15/2025 12:54 PM Pathology Lab Pathologist: Maci Jason MD Specimen: Body Fluid , RIGHT BREAST SUSIE IMPLANT CYST ASPIRATION 05/15/2025 4:58 PM [facility] PATHOLOGY LAB Final Diagnosis Body fluid, right breast susie-implant cyst aspiration: - Low-viability specimen with no clonal B-cell or CD30+ T-cell population detected 05/15/2025 4:58 PM [facility] PATHOLOGY LAB at 1658 CDT Flow Cytometry Interpretation Viability: 54% B-cells: polytypic, kappa:lambda ratio 1.5:1 T-cells: no overt immunophenotypic aberrancy detected CD4:CD8 ratio 2.8:1, ~19% of overall events represent CD56+/CD16+ natural killer cells. A cytospin prepared from the flow cytometry specimen has been reviewed for chief vendor quality purposes. Amongst inflammatory cells (lymphocytes, histiocytes, and neutrophils) are rare large mononuclear cells with prominent nucleoli (4 or 5 cells are seen in the cytospin). They appear histiocytoid with vacuolation. The lineage of these rare cells is uncertain, but anaplastic large cells vs. highly reactive histiocytes cannot be excluded. 05/15/2025 4:58 PM [facility] PATHOLOGY LAB Flow Cytometry Results Differential Result Comment Flow Cell Count /uL 1,260 Total Viability % 54 Lymphocytes % 67 Dim CD45 Region % 0 Monocytes % 1 Granulocytes % 32 05/15/2025 4:58 PM [address] [facility] PATH[facility] Client Specimen ID # [id number] 05/15/2025 4:58 PM [facility] PATHOLOGY LAB Reason for test Mastitis without abscess Other abnormal and inconclusive findings on diagnostic imaging of breast 05/15/2025 4:58 PM [facility] PATHOLOGY LAB Number of markers 23 were performed. A-2 Flow CD10 A-4 Flow CD20 A-5 Flow CD23 A-10 Flow CD2 A-11 Flow CD3 A-12 Flow CD4 A-16 Flow CD1a A-18 FLow CD16 A-3 Flow CD19 A-6 Flow CD34 A-7 Flow CD45 A-13 Flow CD5 A-14 Flow CD7 A-15 Flow CD8 A-17 Flow CD30 A-19 Flow CD26 A-20 Flow CD56 A-21 Flow CD57 A-22 TCR-AB A-23 TCR-GD A-8 [place]+CD19+ A-9 Lambda+CD19+ 05/15/2025 4:58 PM CDT [facility] Pathologist Location at [facility] A[facility]as Rashid 05/15/2025 4:58 PM CDT [facility] PATH[facility]Y LAB Disclaimer Test performed at [facility], [address] [place], [place], [address]. *The established laboratory minimum viability is 70%. Values below the minimum may result in the failure to find an abnormal population of cells. This test was developed and its performance characteristics determined by the Flow Cytometry Laboratory. It has not been cleared by the [place] Food and Drug Administration (FDA). The FDA has determined that such clearance or approval is not necessary. This test is used for clinical purposes. It should not be regarded as investigational or for research. This laboratory is regulated under the Clinical Laboratory Improvement Amendments of 1998 (CLIA) as a qualified to perform high complexity clinical testing. 05/15/2025 4:58 PM CDT [facility] PATHOLOGY LAB Embedded Images 4:58 PM CDT [facility] PATH[facility] LAB Fluid BODY FLUID SPECIMEN / Unknown 05/15/2025 8:02 AM CDT 05/15/2025 12:54 PM CDT Amador Herrera MD LAB - PATHOLOGY/CYT OLOGY ORDERABLES Final Result [facility] PATHOLOGY LAB [address] [facility] [place] [address], [facility] [phone] documented in this encounter Visit Diagnoses Diagnosis Mastitis without abscess Other abnormal and inconclusive findings on diagnostic imaging of breast documented in this encounter Care Teams Beehive Kiln Charcoal Burner Relationship Specialty Start Date End Date Steve Jimenez MD [address] [place] [address] PCP - General 06/01/21 documented as of this encounter
--- OUTSIDE RECORDS SUMMARY | 2025-06-03 17:18 | XMS_ITS | Clinical Summary ---
Author Organization [facility] Address [address] [facility] [place] [address] Care Team Providers Care Cell Room Supervisor Name Role Phone Steve Jimenez MD Primary Care Provider [phone] Source Comments [facility],non-owned Affiliates and Associated Physician Practices is amultiple site organization consisting of ambulatory clinics and hospital sitesin [place], [place], [place] and [place]. This disclosure is being madepursuant to the Care Everywhere program and may not contain all information available regarding this patient. Last updated 18.[facility] Encounters Date Type Department Care Team Description 05/20/2025 Lab Requisition [facility] - Pathology Lab [address] [place] [phone] Marco Barcenas MD Illness, unspecified 05/16/2025 Lab Requisition [facility] - Pathology Lab [address] [place] [phone] Marco Barcenas MD Illness, unspecified 05/15/2025 Lab Requisition [facility] - Pathology Lab [address] [place] [phone] Amador Herrera MD Mastitis without abscess; Other abnormal and inconclusive findings on diagnostic imaging of breast from Last 3 Months Social History Tobacco Use Types Packs/Day Years Used Date Smoking Tobacco: Never Assessed Comments Unknown Sex and Gender Information Value Date Recorded Sex Assigned at Not on file Legal Sex Female 9:06 AM CDT Gender Identity Not on file Sexual Orientation Not on file Plan of Treatment Health Maintenance Due Date Last Done Comments BONE DENSITY TESTING 1950 COLOGUARD (AGES 45-75) - COL ON CA SCREENING 1950 COLON MONITORING 1950 COLONOSCOPY - COLON CA SCREENING 1950 CT COLONOGRAPHY - COLON CA SCREENING 1950 Colorectal Cancer Screening 1950 FIT - COLON CA SCREENING 1950 FLEX SIG - COLON CA SCREENING 1950 LIPID TESTING 1950 MAMMOGRAM 1950 HEPATITIS C SCREENING 03/25/1969 DTAP/TDAP/TD VACCINES (1 - Tdap) 1970 PNEUMOCOCCAL VACCINE 50+ (1 of 1 - PCV) 2001 ZOSTER VACCINE (1 of 2) 2001 DEPRESSION SCREENING 08/21/2024 MEDICARE AWV CALENDAR YEAR 2024 COVID-19 VACCINE (1 - 2023-2 5 season) 2025 INFLUENZA VACCINE (#1) 2025 Respiratory Syncytial Virus (RSV) Vaccine Pt: or over 60 yrs (1 - 1-dose 75+ series) 2026 HEPATITIS B VACCINE Aged Out No longe r eligible based on patient's age to complete this topic HIB VACCINE Aged Out No longer eligi ble based on patient's age to complete this topic HPV VACCINE Aged Out No longer eligi ble based on patient's age to complete this topic MENINGOCOCCAL (Group B) VACC INE SHARED DECISION-MAKING Aged Out No longer eligibl e based on patient's age to complete this topic MENINGOCOCCAL GROUPS A/C/Y/W VACCINE Aged Out No longer eligible b ased on patient's age to complete this topic Procedures Procedure Name Priority Date/Time Associated Diagnosis Comments FLOW CYTOMETRY BODY FLUID Routine 05/15/2025 8:02 AM CDT Mastitis without abscess Other abnormal and inconclusive findings on diagnostic imaging of breast from Last 3 Months Results * FLOW CYTOMETRY BODY FLUID (05/15/2025 8:02 AM CDT) Case Report Flow Cytometry Case: [id number] Authorizing Provider: Amador Herrera Collected: 05/15/2025 08:02 AM MD Cole Ordering Location: [facility] - Received: 05/15/2025 12:54 PM Pathology Lab Pathologist: Maci Jason MD Specimen: Body Fluid , RIGHT BREAST SUSIE IMPLANT CYST ASPIRATION 05/15/2025 4:58 PM [facility] PATHOLOGY LAB Final Diagnosis Body fluid, right breast susie-implant cyst aspiration: - Low-viability specimen with no clonal B-cell or CD30+ T-cell population detected 05/15/2025 4:58 PM [facility] PATHOLOGY LAB at 1658 CDT Flow Cytometry Interpretation Viability: 54% B-cells: polytypic, kappa:lambda ratio 1.5:1 T-cells: no overt immunophenotypic aberrancy detected CD4:CD8 ratio 2.8:1, ~19% of overall events represent CD56+/CD16+ natural killer cells. A cytospin prepared from the flow cytometry specimen has been reviewed for quality assurance qa lab analyst purposes. Amongst inflammatory cells (lymphocytes, histiocytes, and neutrophils) are rare large mononuclear cells with prominent nucleoli (4 or 5 cells are seen in the cytospin). They appear histiocytoid with vacuolation. The lineage of these rare cells is uncertain, but anaplastic large cells vs. highly reactive histiocytes cannot be excluded. 05/15/2025 4:58 PM [facility] Flow Cytometry Results Differential Result Comment Flow Cell Count /uL 1,260 Total Viability % 54 Lymphocytes % 67 Dim CD45 Region % 0 Monocytes % 1 Granulocytes % 32 05/15/2025 4:58 PM [facility] Client Specimen ID # [id number] 05/15/2025 4:58 PM [facility] Reason for test Mastitis without abscess Other abnormal and inconclusive findings on diagnostic imaging of breast 05/15/2025 4:58 PM [facility] Number of markers 23 were [...] Flow CD57 A-22 TCR-AB A-23 TCR-GD A-8 [place]+CD19+ A-9 Lambda+CD19+ 05/15/2025 4:58 PM CDT [facility] Pathologist Location at [facility] 05/15/2025 4:58 PM CDT [facility] PATH[facility] LAB Disclaimer Test performed at [facility], [address] [place], [place], [address]. *The established laboratory minimum viability is 70%. [...] complexity clinical testing. 05/15/2025 4:58 PM CDT [facility] PATH[facility] Embedded Images 4:58 PM CDT [facility] Fluid BODY FLUID SPECIMEN / Unknown 05/15/2025 8:02 AM CDT 05/15/2025 12:54 PM CDT Amador Herrera MD LAB - PATHOLOGY/CYT OLOGY ORDERABLES Final Result [facility] PATH[facility] LAB [address] [facility] [place] [address], [facility] [phone] from Last 3 Months Insurance [employer] MEDICARE ADV Care Teams Cell Room Supervisor Relationship Specialty Start Date End Date Steve Jimenez MD [address] [place] [address] PCP - General 06/01/21
--- OUTSIDE RECORDS SUMMARY | 2025-06-03 17:18 | XMS_ITS | Encounter Summary ---
Author Organization [facility] Address [address] [place] [address] Care Team Providers Care Seeing Eye Dog Trainer Name Role Phone Steve Jimenez MD Primary Care Provider [phone] Encounter Details Date Type Department Care Team (Late st Contact Info) Description 05/16/2025 Lab Requisition [facility] - Pathology Lab [address] [place] [address] Marco Barcenas MD [address] [place] [phone] Illness, unspecified Social History Tobacco Use Types Packs/Day Years Used Date Smoking Tobacco: Never Assessed Comments Unknown Sex and Gender Information Value Date Recorded Sex Assigned at Not on file Legal Sex Female 9:06 AM CDT Gender Identity Not on file Sexual Orientation Not on file documented as of this encounter Plan of Treatment Not on file documented as of this encounter Visit Diagnoses Diagnosis Illness, unspecified documented in this encounter Care Teams Seeing Eye Dog Trainer Relationship Specialty Start Date End Date Steve [place] [address] PCP - General 06/01/21 documented as of this encounter
--- OUTSIDE RECORDS SUMMARY | 2025-06-03 17:18 | XMS_ITS | Clinical Summary ---
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 05/20/2025 Active atorvastatin (LIPITOR) 10 mg tablet Take 10 mg by mouth daily at bedtime. Active LORazepam (ATIVAN) 1 mg tablet Take 1 mg by mouth. 10/17/2024 Active omeprazole (PriLOSEC) 40 mg Capsule, Delayed Release(E.C.) Take 40 mg by mouth 2 times daily. Active CALCIUM CARBONATE-VITAMI N D3 ORAL Take by mouth. Active CYANOCOBALAMIN, VITAMIN B-12, ORAL Take by mouth. Active multivitamin (DAILY-CYNDY) tablet Take 1 Tablet by mouth daily. Active CALCIUM CARBONATE ORAL Take by mouth. Active ASCORBIC ACID, VITAMIN C, ORAL Take by mouth. Active vilazodone (VIIBRYD) 10 mg Tablet Take by mouth daily. Active Active Problems No known active problems Encounters Date Type Department Care Team Description 06/03/2025 3:00 PM CDT Office Visit [facility] Oncology and Hematology - [place] [address] [place] [address] Alfredo Bang MD Anaplastic ALK-positive large cell lymphoma, unspecified body region (CMS/HCC) (Primary Dx) from Last 3 Months Family History Medical History Relation Name Comments COPD Brother 1 Heart Disease Brother 1 No Known Problems Brother 2 No Known Problems Child 1 No Known Problems Child 2 No Known Problems Father No Known Problems Mother No Known Problems Sister 1 No Known Problems Sister 2 Relation Name Status Comments Brother 1 Brother 2 Child 1 Alive Child 2 Alive Father Mother Sister 1 Alive Sister 2 [...] on file Sexual Orientation Not on file Last Filed Vital Signs [...] Mass Index 31.15 06/03/2025 3:02 PM CDT Plan of Treatment Upcoming Encounters Date Type Department Care Team (Late st Contact Info) Description 06/12/2025 4:30 PM CDT Telephone Check Up [facility] Oncology and Hematology - Milind [address] [facility] [address] [place] [address] Alfredo Bang MD [address] [facility] [address] [place] [address] Health Maintenance Due Date Last Done Comments DTAP/TDAP/TD VACCINES (1 - Tdap) 1970 BREAST CANCER SCREENING 1991 COLORECTAL SCREENING 1996 Colorectal Cancer Screening 1996 FIT-DNA Q 3 years 1996 FIT/FOBT Q 1 year 1996 Flex Sig/CT Colonography Q 5 years 1996 PNEUMOCOCCAL VACCINE 50+ YEARS (1 of 1 - PCV) 03/30/20 ZOSTER VACCINE (1 of 2) 2001 OSTEOPOROSIS SCREENING 2016 Medicare Advantage ([place]) Prev entative Visit/Annual Wellness Visit 08/21/2024 INFLUENZA VACCINE (#1) 2025 RSV VACCINE (60+ or ) (1 - 1-dose 75+ series) 2026 Insurance AENA O MCR [facility] Address: [facility] [address] [place] [id number]
--- OUTSIDE RECORDS SUMMARY | 2025-06-03 17:18 | XMS_ITS | Encounter Summary ---
Author Organization [facility] Address [address] [facility] [place] [address] Care Team Providers Care Corporate Learning Consultant Name Role Phone Steve Jimenez MD Primary Care Provider [phone] Encounter Details Date Type Department Care Team (Late st Contact Info) Description 05/20/2025 Lab Requisition [facility] - Pathology Lab [address] [place] [address] Marco Barcenas MD [address] [place] [phone] Illness, unspecified Social History Tobacco Use Types Packs/Day Years Used Date Smoking Tobacco: Never Assessed Comments Unknown Sex and Gender Information Value Date Recorded Sex Assigned at Not on file Legal Sex Female 9:06 AM CDT Gender Identity Not on file Sexual Orientation Not on file documented as of this encounter Plan of Treatment Pending Results Name Type Priority Associated Diagnoses Date /Time SLIDE PREP HISTOLOGY Pathology Cytology Routine Illness, unspecified 05/20/2025 10:00 AM CDT documented as of this encounter Visit Diagnoses Diagnosis Illness, unspecified documented in this encounter Care Teams Corporate Learning Consultant Relationship Specialty Start Date End Date Steve Jimenez MD [address] [place] [address] PCP - General 06/01/21 documented as of this encounter
--- OUTSIDE RECORDS SUMMARY | 2025-06-03 17:18 | XMS_ITS | Clinical Summary ---
Author Organization [facility] Address [address] [facility] [place] [address] Care Team Providers Care Tree Killer Name Role Phone Familia Abad MD Primary Care Provider [phone] Allergies No known active allergies Medications amLODIPine [...] Active Active Problems No known active problems Surgical History Surgery Date Site/Laterality Comments SIMPLE MASTECTOMY Simple Mastectomy Left Breast - (Added by GUIDO Conv) BREAST RECONSTRUCTION THUMB SURGERY HYSTEROSCOPY DILATION AND CURETTAGE OF UTERUS HYSTERECTOMY Medical History Medical History Date Comments Hypertension 02/06/2018 Marked yes on general health questionnaire Family History Medical History Relation Name Comments Hypertension Father Family history of hypertension - (Added by GUIDO Conv) Hypertension Mother Family history of hypertension - (Added by GUIDO Conv) No Known Problems Sister 1 No [...] on file 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
== END 2025-06-03 15:48 | disposition home or self-care (01) ==
LOC: ANHLAB 15:48
PROVIDERS: PCP Family Medicine; Visit Provider Internal Medicine Hematology & Oncology
DX: C84.60 Anaplastic large cell lymphoma, ALK-positive, unspecified site (principal)
CPT/HCPCS: 36415; 80053; 83615; 85025; 88184

== ENCOUNTER 2025-06-05 10:43 | Outpatient (CLI) | payer MEDICARE, SELFPAY ==
--- NOTE | ~2025-06-05 | PE_ITS ---
EXAMINATION: PET skull to mid thigh DATE: 06/05/2025 13:36 INDICATION: Anaplastic large cell lymphoma. TECHNIQUE: Blood glucose level was 91 mg/dL. 10.531 mCi of 18-fluorodeoxyglucose (18-FDG) was administered i.v. Low dose computed tomography (CT) images were acquired from the base of the brain to the proximal thighs for attenuation correction and anatomic localization. Automated exposure control was employed. Dose-length product (DLP) was 1071 mGy-cm. Positron emission tomography (PET) images were acquired in the same distribution. COMPARISON: CT abdomen and pelvis 04/28/2025 FINDINGS: Head/neck: There are likely changes of ocular lens replacement surgeries. There are no pathologically enlarged lymph nodes. Chest: The lungs demonstrate mild atelectasis. No pleural effusion. Cardiomegaly is noted. There are coronary artery calcifications. No pericardial effusion. There are bilateral breast implants with intracapsular rupture on the right. There are no pathologically enlarged lymph nodes. Abdomen/pelvis/proximal thighs: There is a 2.1 cm cyst in the liver. The gallbladder, spleen, pancreas, adrenal glands, and kidneys are normal. There is diverticulosis of the colon without evidence of diverticulitis. There are no dilated loops of bowel. The appendix is normal. There are no pathologically enlarged lymph nodes. There are normal-sized left obturator and inguinal lymph nodes with increased activity. For example, a left inguinal node measures 12 x 7 mm with maximum SUV of 8.1. There is no free intraperitoneal fluid. There is no osseous malignancy. IMPRESSION: 1. Normal-sized left obturator and inguinal lymph nodes with increased activity, which may be reactive from the recent sigmoid diverticulitis. Lymphoma is less likely. Reviewed, dictated and finalized at location E. IMPRESSION: 1. Normal-sized left obturator and inguinal lymph nodes with increased activity , which may be reactive from the recent sigmoid diverticulitis. Lymphoma is les s likely.
== END 2025-06-05 10:44 | disposition home or self-care (01) ==
PROVIDERS: PCP Family Medicine; Visit Provider Surgery
DX: C84.7A Anaplastic large cell lymphoma, ALK-negative, breast (principal)
CPT/HCPCS: 78815; A9552

== ENCOUNTER 2025-06-25 00:37 | Day surgery (SDC) | payer MEDICARE, SELFPAY ==
[2025-06-16 12:53] VITALS: BMI 30.8
--- NOTE | 2025-06-16 13:02 | PC.NURSE ---
[facility] has started construction of its new state of the art ER which will open Spring 2026. With this, we anticipate parking may be a challenge for some our surgical patients and families. Parking spaces are limited but are available for all Surgical, obstetrics, and ER patients sharing this lot. If you arrive and find you are having a hard time finding a parking space, please note that we understand the challenges, please drive around the hospital and park near Hospital Entrance 1. When you enter this entrance, you can ask a volunteer to direct or take you back to the surgical waiting area to check in. We appreciate everyone?s understanding of these expected challenges while we build for your future. Report to the Outpatient Waiting Room, entrance under the green pavilion located off [address], at time _0600_ on date _[phone]_. Planned Procedure Time: _0730_.? Time changes happen often and if your time is changed the preop area will call you the afternoon before. - You and your visitor will be asked to self-screen and do not enter if you have any COVID symptoms. Please call surgeon if you need to reschedule. - A mask is optional within the hospital at this time. Nothing to eat or drink after midnight until after surgery. No smoking, or chewing tobacco (or any form of nicotine). No chewing gum, candy or mints. Take only the following medications with a SIP of water on the morning of surgery: ___Vilazodone, Amlodipine and if needed Lorazepam___ DO NOT STOP ANY OF YOUR OTHER PRESCRIPTION MEDICATIONS PRIOR TO SURGERY EXCEPT THE FOLLOWING Hold all vitamins and supplements for 3 days per anesthesiologist. Medications to discontinue per physician Date to take last [id number]__[phone]___ Please no make-up, nail telugu, hairspray, perfume, deodorant, or body powder the day of surgery.? No jewelry (including any body piercings) or valuables the day of surgery, leave them at home.? Please take a shower or bath the night before, or the morning of, surgery with an antibacterial soap.? Wear comfortable, loose fitting clothing. - Jewelry must be removed prior to entering the operating room.? Rings and piercings that are not removed may be cut off. - The hospital will not accept responsibility for valuables.? - Please leave all valuables, including medications, at home the day of surgery. If you are going home after surgery, a licensed dedicated intermodal truck driver must drive you home.? - NO public transportation without another adult if you receive anesthesia. - We recommend that an adult stay with you for 24 hours following discharge. - We also recommend that you do not drive, make important decision, drink alcoholic beverages, or take any drugs that were not prescribed by your health care provider for at least 24 hours after your discharge time. Follow any additional instructions given to you from your surgeon. Telephone instructions given to __Betty__and asked if any additional questions and then verbalized understanding. Patient advised to call surgeon office or pre surgery nurse liaison [phone] if any additional questions.
[2025-06-25] VITALS (11 sets, daily range): BP systolic 141–165; BP diastolic 65–98; PULSE 65–80; RESP 12–18; TEMP 36.1–36.3; O2SAT 90–98
--- OUTSIDE RECORDS SUMMARY | 2025-06-25 00:40 | XMS_ITS | Encounter Summary ---
Author Organization [facility] Address [address] [facility] [place] [address] Care Team Providers Care Network Security Officer Name Role Phone Steve Jimenez MD Primary Care Provider [phone] Encounter Details Date Type Department Care Team (Late st Contact Info) Description 05/20/2025 Lab Requisition [facility] - Pathology Lab [address] [place] [phone] Marco Barcenas MD [address] [facility] [address] [place] [address] Illness, unspecified Social History Tobacco Use [...] Procedure Name Priority Date/Time Associated Diagnosis Comments SLIDE PREP HISTOLOGY Routine 05/20/2025 10:00 AM CDT Illness, unspecified documented in this encounter Results * SLIDE PREP HISTOLOGY (05/20/2025 10:00 AM CDT) Client Specimen ID # [id number] 06/04/2025 1:24 PM CDT [facility] Number of Blocks Received 0 06/04/2025 1:24 PM CDT [facility] Number of Slides 1 06/04/2025 1:24 PM CDT [facility] Number of Control Slides 1 06/04/2025 1:24 PM CDT [facility] Pathology/Cytolo gy 05/20/2025 10:00 AM CDT 05/20/2025 10:31 AM CDT Marco Barcenas MD LAB - PATHOLOGY/CYTOLOGY ORDERAB LES Final Result [facility] [address] [phone] documented in this encounter Visit Diagnoses Diagnosis Illness, unspecified documented in this encounter Care Teams Network Security Officer Relationship Specialty Start Date End Date Steve Jimenez MD [address] [place], [place] [id number] PCP - General 06/01/21 documented as of this encounter
--- OUTSIDE RECORDS SUMMARY | 2025-06-25 00:40 | XMS_ITS | Encounter Summary ---
Author Organization [facility] Address [address] [place] [address] Care Team Providers Care Bell Person Name Role Phone Steve Jimenez MD Primary Care Provider [phone] Encounter Details Date Type Department Care Team (Late st Contact Info) Description 05/15/2025 Lab Requisition [facility] - Pathology Lab [address] [place] [address] Amador Herrera MD [address] [place] [address] Mastitis without abscess; Other abnormal [...] AM CDT) Case Report Flow Cytometry Case: [id number] Authorizing Provider: Amador Herrera Collected: 05/15/2025 08:02 AM MD Cole Ordering Location: [facility] - Received: 05/15/2025 12:54 PM Pathology Lab Pathologist: Maci Jason MD Specimen: Body Fluid , RIGHT BREAST SUSIE IMPLANT CYST ASPIRATION 05/15/2025 4:58 PM [facility] Final Diagnosis Body fluid, right breast susie-implant cyst aspiration: - Low-viability specimen with no clonal B-cell or CD30+ T-cell population detected 05/15/2025 4:58 PM [facility] at 1658 CDT Flow Cytometry Interpretation Viability: 54% B-cells: polytypic, kappa:lambda ratio 1.5:1 T-cells: no overt immunophenotypic aberrancy detected CD4:CD8 ratio 2.8:1, ~19% of overall events represent CD56+/CD16+ natural killer cells. A cytospin prepared from the flow cytometry specimen has been reviewed for clinical quality rn purposes. Amongst inflammatory cells (lymphocytes, histiocytes, and neutrophils) are rare large mononuclear cells with prominent nucleoli (4 or 5 cells are seen in the cytospin). They appear histiocytoid with vacuolation. The lineage of these rare cells is uncertain, but anaplastic large cells vs. highly reactive histiocytes cannot be excluded. 05/15/2025 4:58 PM [facility] Flow Cytometry Results Differential Result Comment Flow Cell Count /uL 1,260 Total Viability % 54 Lymphocytes % 67 Dim CD45 Region % 0 Monocytes % 1 Granulocytes % 32 05/15/2025 4:58 PM T [facility] Client Specimen ID # [id number] 05/15/2025 4:58 PM [facility] Reason for test Mastitis without abscess Other abnormal and inconclusive findings on diagnostic imaging of breast 05/15/2025 4:58 PM [facility] Number of markers 23 [...] Flow CD57 A-22 TCR-AB A-23 TCR-GD A-8 Oppelo+CD19+ A-9 Lambda+CD19+ 05/15/2025 4:58 PM CDT [facility] Pathologist Location at Missy Arenas Rashid 05/15/2025 4:58 PM CDT [facility] Disclaimer Test performed at [facility], [address] [place], [place], [address]. *The established laboratory minimum viability is 70%. [...] complexity clinical testing. 05/15/2025 4:58 PM CDT [facility] Embedded Images 4:58 PM CDT [facility] Fluid BODY FLUID SPECIMEN / Unknown 05/15/2025 8:02 AM CDT 05/15/2025 12:54 PM CDT Amador Herrera MD LAB - PATHOLOGY/CYT OLOGY ORDERABLES Final Result [facility] [address] [facility] [place] [address], [facility] [phone] documented in this encounter Visit Diagnoses Diagnosis Mastitis without abscess Other abnormal and inconclusive findings on diagnostic imaging of breast documented in this encounter Care Teams Bell Person Relationship Specialty Start Date End Date Steve Jimenez MD [address] [place] [address] PCP - General 06/01/21 documented as of this encounter
--- OUTSIDE RECORDS SUMMARY | 2025-06-25 00:40 | XMS_ITS | Clinical Summary ---
Author Organization [facility] Joey beatty Nanci Address [address] [place] [address] Care Team Providers Care Reefer Engineer Name Role Phone Unavailable Primary Care Provider [...] Encounters Date Type Department Care Team Description 06/12/2025 4:30 PM CDT Telephone Check Up [facility] Oncology and Hematology - [place] [address] [address] Alfredo Bang MD Anaplastic ALK-positive large cell lymphoma, unspecified body region (CMS/HCC) (Primary Dx) 06/11/2025 External Device Data STL ABSTRACTION Provider, Abstract 06/11/2025 External Device Data STL ABSTRACTION Provider, Abstract 06/10/2025 External Device Data STL ABSTRACTION Provider, Abstract 06/06/2025 Abstract [facility] Oncology and Hematology [facility] [address] [place] [address] Alfredo Bang MD 06/05/2025 Orders Only [facility] Oncology and Hematology [facility] [address] [facility] [address] [place] [address] Alfredo Bang MD 06/03/2025 3:00 PM CDT Office Visit [facility] Oncology and Hematology 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 Office Visit [facility] Oncology and Hematology - [place] [address] [facility] [address] [place] [address] Alfredo Bang MD [address] [facility] [address] [place] [address] Health Maintenance Due Date Last [...] 2) 2001 OSTEOPOROSIS SCREENING 2016 [place]age ([place]) Prev entative Visit/Annual Wellness Visit 08/21/2024 INFLUENZA VACCINE (#1) 2025 RSV VACCINE (60+ or ) (1 - 1-dose 75+ series) 2026 Procedures Procedure Name Priority Date/Time Associated Diagnosis Comments FLOW CYTOMETRY REPORT Routine 06/04/2025 2:31 PM CDT from Last 3 Months Results * FLOW CYTOMETRY REPORT (06/04/2025 2:31 PM CDT) us Alfredo Bang MD PATHOLOGY/CYTOLOGY ORDERABLES F inal Result from Last 3 Months Insurance AETNA O MCR
--- OUTSIDE RECORDS SUMMARY | 2025-06-25 00:40 | XMS_ITS | Encounter Summary ---
Author Organization [facility] Address [address] [place] [address] Care Team Providers Care Fare Collector Name Role Phone Steve Jimenez MD Primary Care Provider [phone] Encounter Details Date Type Department Care Team (Late st Contact Info) Description 05/16/2025 Lab Requisition [facility] - Pathology Lab [address] [place] [address] Marco Barcenas MD [address] [place] [address] Illness, unspecified Social History Tobacco Use [...] unspecified documented in this encounter Care Teams Fare Collector Relationship Specialty Start Date End Date [place] [address] PCP - General 06/01/21 documented as of this encounter
--- OUTSIDE RECORDS SUMMARY | 2025-06-25 00:40 | XMS_ITS | Clinical Summary ---
Author Organization [facility] Address [address] [facility] [place] [address] Care Team Providers Care Usability Architect Name Role Phone Steve Jimenez MD Primary Care Provider [phone] Source Comments [facility],non-owned Affiliates and Associated Physician Practices is amultiple site organization consisting of ambulatory clinics and hospital sitesin [place], [place], [place] and [place]. This disclosure is being madepursuant to the Care Everywhere program and may not contain all information available regarding this patient. Last updated 18.[facility] Encounters Date Type Department Care Team Description 05/20/2025 Lab Requisition [facility] - Pathology Lab [address] [place] [phone] Marco Barcenas MD Illness, unspecified 05/16/2025 Lab Requisition [facility] - [facility]ology Lab [address] [place] [phone] Marco Barcenas MD Illness, unspecified 05/15/2025 Lab Requisition [facility] - [facility]ology Lab [address] [place] [phone] Amador Herrera MD Mastitis without abscess; Other [...] Routine 05/20/2025 10:00 AM CDT Illness, unspecified FLOW CYTOMETRY BODY FLUID Routine 05/15/2025 8:02 AM CDT Mastitis without abscess Other abnormal and inconclusive findings on diagnostic imaging of breast from Last 3 Months Results * SLIDE PREP HISTOLOGY (05/20/2025 10:00 AM CDT) Client Specimen ID # [id number] 06/04/2025 1:24 PM CDT [facility] Number of Blocks Received 0 06/04/2025 1:24 PM CDT [facility] Number of Slides 1 06/04/2025 1:24 PM CDT [facility] Number of Control Slides 1 06/04/2025 1:24 PM CDT [facility] Pathology/Cytolo gy 05/20/2025 10:00 AM CDT 05/20/2025 10:31 AM CDT Marco Barcenas MD LAB - PATHOLOGY/CYTOLOGY ORDERAB LES Final Result [facility] [address] [place] [address], [facility] [phone] * FLOW CYTOMETRY BODY FLUID (05/15/2025 8:02 AM CDT) Case Report Flow Cytometry Case: [id number] Authorizing Provider: Amador Herrera Collected: 05/15/2025 08:02 AM MD Cole Ordering Location: [facility] - Received: 05/15/2025 12:54 PM Pathology Lab Pathologist: Maci Jason MD Specimen: Body Fluid , RIGHT BREAST SUSIE IMPLANT CYST ASPIRATION 05/15/2025 4:58 PM CDT [facility] Final Diagnosis Body fluid, right breast susie-implant cyst aspiration: - Low-viability specimen with no clonal B-cell or CD30+ T-cell population detected 05/15/2025 4:58 PM CDT [facility] at 1658 CDT Flow Cytometry Interpretation Viability: 54% B-cells: polytypic, kappa:lambda ratio 1.5:1 T-cells: no overt immunophenotypic aberrancy detected CD4:CD8 ratio 2.8:1, ~19% of overall events represent CD56+/CD16+ natural killer cells. A cytospin prepared from the flow cytometry specimen has been reviewed for manager quality systems purposes. Amongst inflammatory cells (lymphocytes, histiocytes, and neutrophils) are rare large mononuclear cells with prominent nucleoli (4 or 5 cells are seen in the cytospin). They appear histiocytoid with vacuolation. The lineage of these rare cells is uncertain, but anaplastic large cells vs. highly reactive histiocytes cannot be excluded. 05/15/2025 4:58 PM [facility] Flow Cytometry Results Differential Result Comment Flow Cell Count /uL 1,260 Total Viability % 54 Lymphocytes % 67 Dim CD45 Region % 0 Monocytes % 1 Granulocytes % 32 05/15/2025 4:58 PM [facility] Client Specimen ID # [id number] 05/15/2025 4:58 PM [facility] Reason for test Mastitis without abscess Other abnormal and inconclusive findings on diagnostic imaging of breast 05/15/2025 4:58 PM [facility] Number of markers 23 were [...] Flow CD57 A-22 TCR-AB A-23 TCR-GD A-8 [place]+CD19+ A-9 Lambda+CD19+ 05/15/2025 4:58 PM [facility] Pathologist Location at [facility] 05/15/2025 4:58 PM [facility] Disclaimer Test performed at [facility], [address] [place] [address], [id number]. *The established laboratory minimum viability is 70%. [...] high complexity clinical testing. 05/15/2025 4:58 PM [facility] Embedded Images 4:58 PM [facility] Fluid BODY FLUID SPECIMEN / Unknown 05/15/2025 8:02 AM CDT 05/15/2025 12:54 PM CDT us Amador Herrera MD LAB - PATHOLOGY/CYT OLOGY ORDERABLES Final Result [facility] [address] [place] [address], [facility] [phone] from Last 3 Months Insurance [employer] MEDICARE ADV Care Teams Usability Architect Relationship Specialty Start Date End Date Steve Jimenez MD [address] [place] [address] PCP - General 06/01/21
--- OUTSIDE RECORDS SUMMARY | 2025-06-25 00:40 | XMS_ITS | Clinical Summary ---
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
--- NOTE | 2025-06-25 06:39 | WPDHPUPDATE1 ---
History and Physical Update Update Date/Time: 06/25/25 06:39 Patient seen and examined in pre-operative holding area. No interval change in medical history or symptoms. Patient remembers previous discussion of benefits and alternatives to procedure. Continues to desire to proceed with bilateral breast implant removal and capsulectomy . I reviewed the risks including but not limited to bleeding ,infection, asymmetry, undesireable cosmetic appearance, partial/total skin/ipple loss, no change or worsening of symptoms, change in sensation, recurrence or incomplete excision. I discussed the possible use of assistants and their level of participation in the case. Patient stated understanding and signed the consent form wishing to proceed
--- NOTE | 2025-06-25 06:40 | P.OP_ITS ---
Procedure Note - Detailed Date of Procedure 06/25/25 Pre-op Diagnosis Capsular Contracture Edgar Breast, ALCL Post-op Diagnosis Same Procedure Performed b/l breast implant removal and capsulectomy Surgeon Garett Ag MD Track [employer]way Repair Supervisor ana maria pinto pa-c Anesthesia General Description of Procedure Patient was seen in the preoperative holding area where the breasts were marked and the consent form signed. Patient was taken back to the operating room and placed on the table in the supine position. Time-out was performed with Anesthesia, surgeon, and staff agreeing on patient's name, site, and surgery to be performed. SCDs were placed on the lower extremities inflated. Antibiotics were given IV. After general anesthesia was administered the breasts were prepped and draped in usual sterile fashion. I took my attention 1st to the right breast where I used a 10 blade scalpel to make an elliptical incision around the affected irregular skin on the lateral aspect of the reconstructed breast through skin and dermis extending this incision proximally around her area of nipple reconstruction as well as laterally to account for expected dog-ear formation. Bovie cautery was used to then dissect through subcutaneous tissue down to implant capsule and I proceeded with EN bloc capsulectomy with Bovie cautery. Prior to completing this a small incision was made in the capsule revealing approximately 60 cc of dark brown fluid of which this was sampled and is being sent for cytology. I proceeded with irrigation with normal saline and hemostasis with Bovie cautery. As the implant reconstruction had been a dual layer I proceeded with suturing the pectoralis major muscle down to its inferior attachments on the chest wall with 3-0 Vicryl suture. A 10 Luxembourger NO drain was placed. After a 2nd round of hemostasis I placed Nannette powder around the pect muscle and capsulectomy excision area to aid in further hemostasis. Closure was then done with 3-0 Vicryl for deep and dermal closure followed by 4-0 Monocryl for subcuticular closure and required extra attention to rearrange skin incisions given irregular resection of affected skin. Total length of closure measured 12 cm. Next I took my attention to the left breast where similar procedure was performed after using clean instruments and changing gloves. I made a longitudinal incision along the lateral aspect of left breast through skin and dermis with 15 blade scalpel. Bovie cautery was used to dissect through subcutaneous tissue down to the implant capsule. A near complete EN bloc resection of the implant and capsule was performed with Bovie cautery. I irrigated with normal saline. Hemostasis with Bovie cautery and placement of Nannette powder. A 10 Luxembourger NO drain was placed. 3-0 Vicryl was used for dermal closure and 4-0 Monocryl for subcuticular. The skin flaps and inaja nipple on the left breast appeared viable with good cap refill. I injected 10 cc of 1% lidocaine with epinephrine and 0.5% Marcaine plain along the incision and drain site on each breast. A dressing of Mastisol, Steri- Strips, 4x4s and Tegaderm was then applied followed by ABDs and a surgical bra. The drains were hooked to bulb suction. The patient was awakened from anesthesia and transferred to the recovery room in stable condition. 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 Complications: None Estimated blood loss: 20 cc Disposition: Patient tolerated the procedure well and will go home later today Ana Maria Pinto PA-C was essential for positioning, retraction, closure and dressin g placement. [facility] Billing Surgery - Charge Forward: Surgery Billing ([id number], [id number] same for ana maria ramirez )
[2025-06-25] MEDS: LACTATED RINGERS 1,000 ML 30 ML IV CONT ×2 (10:45→13:40)
[2025-06-25] MEDS: ACETAMINOPHEN 500 MG TABLET 1000 MG PO (10:45)
--- NOTE | 2025-06-25 13:05 | S_PTH ---
PATIENT: Mouna Sahu LOC: [facility] U#:[id number] AGE/SX: 75/F ROOM: RE06/25/[address]: Garett Ag MD : 1950 BED: DIS: 06/25/2025 SPEC #: [id number] RECD: 06/26/25 07:26 STATUS: DIPTI REMaryam #: [id number] FAMILIA: 06/25/25 13:[address]: Garett Ag DEPT: [facility] Surgical RECD BY: Cherelle Watson ENTERED: 06/26/25 07:27 SP TYPE: Surgical OTHR DR: Samara Dan DO Tissues: A - Breast Capsule B - Breast Capsule C - Cytology Fluid Procedures: Gross Exam Level 1
[2025-06-25] MEDS: fentaNYL CITRATE INJ (*CRX) 100 MCG/2 ML VIAL 25 MCG IV PUSH ×5 (13:58→15:40)
[2025-06-25] MEDS: oxyCODONE HCL (*CRX) 5 MG TAB IR PO (14:50)
== END 2025-06-25 16:00 | disposition home or self-care (01) ==
PROVIDERS: PCP Family Medicine; Visit Provider Plastic Surgery
PROC: (CPT 19371; principal; 2025-06-25 12:00)
DX: C84.7A Anaplastic large cell lymphoma, ALK-negative, breast (principal); E78.5 Hyperlipidemia, unspecified; E11.22 Type 2 diabetes mellitus with diabetic chronic kidney disease; I12.9 Hypertensive chronic kidney disease with stage 1 through stage 4 chronic kidney disease, or unspecified chronic kidney disease; N18.30 Chronic kidney disease, stage 3 unspecified; M18.11 Unilateral primary osteoarthritis of first carpometacarpal joint, right hand; D64.9 Anemia, unspecified; L63.9 Alopecia areata, unspecified; R82.994 Hypercalciuria; E87.5 Hyperkalemia; M47.894 Other spondylosis, thoracic region; E55.9 Vitamin D deficiency, unspecified; F41.9 Anxiety disorder, unspecified; Z98.890 Other specified postprocedural states; Z90.11 Acquired absence of right breast and nipple; Z98.82 Breast implant status; Z87.891 Personal history of nicotine dependence; Z85.3 Personal history of malignant neoplasm of breast; Z87.448 Personal history of other diseases of urinary system; Z82.49 Family history of ischemic heart disease and other diseases of the circulatory system
CPT/HCPCS: 19371; 13101; 13102; 88300; A9270; J1100; J2003; J2405; J2704; J3010; J7120

== ENCOUNTER 2025-07-08 11:12 | Outpatient (CLI) | payer MEDICARE, SELFPAY ==
[2025-07-08 11:26] LABS: Hematocrit 37.8 % (37.0-47.0); Hemoglobin 12.6 g/dL (12.0-15.0); Immature Granulocyte Percent A 0.2 % (0-0.5); Lymphocytes Absolute Auto 3.07 K/mm3 (0.9-3.2); Mean Corpuscular HGB Conc 33.3 g/dl (32-36); Mean Corpuscular Hemoglobin 31.1 pg (26-34); Mean Corpuscular Volume 93.3 fl (80-100); Nucleated Red Blood Cells Absolute Auto 0.000 K/mm3 (0.0-0.012); Nucleated Red Blood Cells Perc 0.0 % (0.0-0.2); Platelet Count Result 279 k/mm3 (150-375); Red Blood Count 4.05 M/mm3 (4.2-5.4); White Blood Count 8.8 K/mm3 (4.5-10.0)
[2025-07-08 16:18] LABS: Anion Gap 8 mmol/L (4-12); Blood Urea Nitrogen 18 mg/dL (7-17); Calcium 9.7 mg/dL (8.4-10.2); Carbon Dioxide 28 mmol/L (22-30); Chloride 102 mmol/L (98-107); Estimated Glomerular Filt Rate 60; Glucose 100 mg/dL (65-110); Potassium 4.1 mmol/L (3.4-5.0); Sodium 138 mmol/L (137-145)
== END 2025-07-08 11:13 | disposition home or self-care (01) ==
LOC: ANHLAB 11:13
PROVIDERS: PCP Family Medicine; Visit Provider Internal Medicine Hematology & Oncology
DX: C84.60 Anaplastic large cell lymphoma, ALK-positive, unspecified site (principal)
CPT/HCPCS: 36415; 80048; 85025

== ENCOUNTER 2025-07-20 12:57 | Emergency (ER) | payer MEDICARE, SELFPAY ==
--- NOTE | ~2025-07-20 | CT_ITS ---
CT HEAD NON-CONTRAST CT C-SPINE Clinical History: fall, hit head, AMS Comparison: PET/CT 06/05/2025 Technique: Unenhanced axial images skull base to vertex. Coronal, sagittal reformats. Axial images thoracic inlet to skull base. Sagittal and coronal reformats. CT images acquired with automatic exposure control for dose reduction DLP: 757 mGy-cm Findings: Head: Chronic white matter microvascular ischemic changes. Sulci, ventricles: Unremarkable. No intracerebral hemorrhage. No evidence acute territorial infarct. No mass effect, midline shift, intra-/extra-axial fluid collection. Bony calvarium intact. Visualized paranasal sinuses: Clear. Mastoid air cells: Clear. C-spine: No acute fracture or listhesis. Vertebral bodies normal height and alignment. Mild degenerative changes. Disc spaces maintained. Mild disease C5-7. Prevertebral soft tissues within normal limits. Visualized lung apices: Clear. Visualized thyroid: Unremarkable. No enlarged cervical nodes. IMPRESSION: HEAD: 1. No acute intracranial findings. C-SPINE: 1. No acute fracture. Reviewed, dictated and finalized at location R. [facility] IMPRESSION: HEAD: 1. No acute intracranial findings. C-SPINE: 1. No acute fracture.
--- OUTSIDE RECORDS SUMMARY | 2025-07-20 13:00 | XMS_ITS | Encounter Summary ---
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 Social History Tobacco Use Types Packs/Day [...] Procedure Name Priority Date/Time Associated Diagnosis Comments FINE NEEDLE ASPIRATION (STL) Routine 06/25/2025 12:21 PM PROGRAM ARRANGER 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 06/30/2025 1:51 PM [facility] Final Diagnosis Breast, right implant capsule fluid, cytology: - Rare highly atypical lymphocytes present, see comment 06/30/2025 1:51 PM [facility] at 1351 PROGRAM ARRANGER Clinical History History of breast carcinoma status post mastectomy with saline implant. Right breast shows clinical findings suspicious for anaplastic large cell lymphoma. 06/30/2025 1:51 PM [facility] Gross Description 1 Pap stained Thin Prep slide and 1 cell block from 3cc bloody fluid 06/30/2025 1:51 PM [facility] Microscopic Description The specimen is hypocellular and consists of scattered mixed inflammatory cells and rare enlarged atypical lymphocytes. Atypical lymphocytes show high NC ratio, hyperchromasia and clumped chromatin. Additional CD30 stain is positive in atypical enlarged lymphocytes. 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 Please also correlate with surgical pathology report, [id number]. 06/30/2025 1:51 PM [facility] Pathologist Location at [facility] 06/30/2025 1:51 PM [facility] Disclaimer The performance characteristics of all immunohistochemical and indirect immunofluorescence stains (if any) cited in this report were determined by the Histopathology Laboratory of [facility]. Some of these tests rely on the use of analyte-specific reagents and are subject to specific labeling requirements by the US Food and Drug Administration. Such tests were developed by the Histology Laboratory of [facility] and have not been cleared or approved by the FDA. The FDA has determined that such clearance and approval is not necessary. These tests are used for clinical purposes and should not be regarded as investigational or for research. This laboratory is certified under the Clinical Laboratory Improvement Amendments (CLIA) as qualified to perform high complexity clinical laboratory testing. This case has been personally reviewed and interpreted by the attending (teaching) pathologist. 06/30/2025 1:51 PM [facility] Embedded Images 06/30/2025 1:51 PM [facility] Pathology/Cytolo gy ENTIRE BREAST / Unknown 06/25/2025 12:21 PM PROGRAM ARRANGER 06/26/2025 1:38 PM PROGRAM ARRANGER Garett Ancelmo LAB - PATHOLOGY/CYTOLOGY ORDER ADRIANNE Final Result [facility] [address] 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
--- OUTSIDE RECORDS SUMMARY | 2025-07-20 13:00 | XMS_ITS | Encounter Summary ---
Author Organization [facility] Address [address] [place] [address] Care Team Providers Care Manager Fast Food Name Role Phone Steve Jimenez MD Primary Care Provider [phone] Encounter Details Date Type Department Care Team (Late st Contact Info) Description 06/26/2025 Lab Requisition [facility] - Pathology Lab [address] [place] [address] Garett Ag [address] [place] [address] Illness, unspecified Social History Tobacco Use Types [...] Procedure Name Priority Date/Time Associated Diagnosis Comments PATHOLOGY TISSUE Routine 06/25/2025 12:5 6 PM SIGNAL TECHNICIAN Illness, unspecified documented in this encounter Results * PATHOLOGY TISSUE (06/25/2025 12:56 PM SIGNAL TECHNICIAN) Case Report Surgical Pathology Report Case: [id number] Authorizing Provider: Garett Ag Collected: 06/25/2025 12:56 PM Ordering Location: [facility] - Received: 06/26/2025 01:30 PM Pathology Lab Pathologist: Stefani Saul MD Specimens: A) - Breast Mast Smpl, right breast mastectomy skin implant and capsule B) - Breast Capsule, Left breast implant and capsule 06/30/2025 11:17 AM [facility] Final Diagnosis A. 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 Breast, left implant and capsule, removal: - No evidence of malignancy 06/30/2025 11:17 AM [facility] at 1117 SIGNAL TECHNICIAN Microscopic Description and Comment The right breast capsule is thickened and contains a low density atypical lymphoid infiltrate morphologically consistent with anaplastic large cell lymphoma. Scant tumor cells line the capsule, and focal small collections of atypical cells are identified. The malignant cells are large with irregular nuclear contours, open chromatin, variably prominent nucleoli, and abundant, azurophilic to vacuolated cytoplasm. Immunohistochemistry stains with reactive controls are performed to confirm the morphologic impression. The tumor is positive for CD30, CD4, CD43 (subset), and CD25. The cells are negative for ALK-1, CD3, CD20, PAX-5, CD5, MUM-1, and JENNIFER-3. There is no evidence of recurrent breast carcinoma. The left breast capsule is negative for malignancy. 06/30/2025 11:17 AM [facility] Clinical History History of breast carcinoma status post mastectomy with saline implant. Right breast shows clinical findings suspicious for anaplastic large cell lymphoma. 06/30/2025 11:17 AM [facility] Gross Description The requisition and specimens are identified with the patient's name Mouna Sahu. Received in formalin, labeled right breast mastectomy skin implant and capsule biopsy shows ALCL needs CD30 stained, is an unoriented, 543 g, 14.0 x 12.5 x 5.8 cm breast capsule that is martin-beard with minimal attached yellow adipose tissue. The surface includes a 9.0 x 5.3 cm light martin skin ellipse with no orientation. Skin surface has punctate purple-martin discoloration, but no distinct lesions the capsule is disrupted opposite the skin ellipse with a 6.5 cm opening containing a protruding, but intact implant. The implant alone is 410 g with a granular surface and foci of adherent red-martin tissue. The implant shell is inscribed ReferralCandyan 401 CC LOT [id number] style 115 with no defects. The inner aspect of the capsule is purple-martin with red-purple thickened areas. Sectioning shows predominantly beard-martin parenchyma with focal areas of hemorrhage in the thickened regions, but no discrete masses or firm areas are present. Creosoting Engineer sections are submitted as follows: A1 retail field representative tissue adherent to implant shell, A2-A6 retail field representative capsule, A7 skin including discoloration. Specimen processing times on 06/26/2025 are as follows: Time of excision: 1256 on 06/25/2025 Time specimen is placed in formalin: 1315 on 06/25/2025 Total cold ischemia time: 19 minutes Received in formalin, left breast implant capsule is a 353 g, disrupted implant capsule surrounding an intact synthetic implant 13.0 x 11.0 x 4.8 cm. The capsule is markedly disrupted with numerous defects. The outer surface of the capsule has scant adherent adipose tissue, but is otherwise light martin and roughened. The implant alone is 328 g with a granular surface and minimal adherent beard-white smooth tissue. The implant shell is inscribed Allergan 322 cc [id number] style 115 with no defects. The inner aspect of the capsule is beard-white and smooth. The cut surface is beard-white with an average thickness of 0.1 cm and minimal variation. Creosoting Engineer sections are submitted as follows: B1 capsule, B2 tissue adherent to implant. Specimen processing times on 06/26/2025 are as follows: Time of excision: 1301 on 06/25/2025 Time specimen is placed in formalin: 1315 on 06/25/2025 Total cold ischemia time: 14 minutes AH 06/30/2025 11:17 AM [facility] Pathologist Location at [facility] 06/30/2025 11:17 AM [facility] Disclaimer The performance characteristics of all immunohistochemical and indirect immunofluorescence stains (if any) cited in this report were determined by the [facility]opathology Laboratory of [facility]. Some of these tests were developed by our own laboratory and have not been cleared or approved by the US Food and Drug Administration. The FDA does not require this test to go through premarket FDA review. These tests are used for clinical purposes. They should not be regarded as investigational or for research. This laboratory is certified under the Clinical Laboratory Improvement Amendments (CLIA) as qualified to perform high complexity clinical laboratory testing. This case has been personally reviewed and interpreted by the attending (teaching) pathologist. 06/30/2025 11:17 AM SIGNAL TECHNICIAN [facility] Embedded Images 06/30/2025 11:17 AM SIGNAL TECHNICIAN [facility] Pathology/Cytology SIMPLE MASTECTOMY / Unknown 06/25/2025 12:56 PM SIGNAL TECHNICIAN 06/26/2025 1:30 PM SIGNAL TECHNICIAN Miscellaneous samples (specimen) CAPSULAR CONTRACTURE OF BREAST / Unknown 06/25/2025 1:01 PM SIGNAL TECHNICIAN 06/26/2025 1:37 PM SIGNAL TECHNICIAN Garett Ag LAB - PATHOLOGY/CYTOLOGY ORDER ADRIANNE Final Result [facility] [address] [phone] documented in this encounter Visit Diagnoses Diagnosis Illness, unspecified documented in this encounter Care Teams Manager Fast Food Relationship Specialty Start Date End Date Steve Jimenez MD [address] [place] [address] PCP - General 06/01/21 documented as of this encounter
--- OUTSIDE RECORDS SUMMARY | 2025-07-20 13:00 | XMS_ITS | Clinical Summary ---
Author Organization [facility] Joey beatty Nanci Address [address] [place] [address] Care Team Providers Care Peat Shredder Tender Name Role Phone Unavailable Primary Care Provider [...] Encounters Date Type Department Care Team Description 07/15/2025 1:00 PM ROOM SERVICE ASSOCIATE Office Visit [facility] Oncology and Hematology [facility] [address] [place] [address] Alfredo Bang MD Anaplastic ALK-positive large cell lymphoma, unspecified body region (CMS/HCC) (Primary Dx) 06/12/2025 4:30 PM CDT Telephone Check Up [facility] Oncology [facility] Hematology [facility] [address] [place] [address] Alfredo Bang MD Anaplastic ALK-positive large cell lymphoma, unspecified body region (CMS/HCC) (Primary Dx) 06/11/2025 External Device Data STL ABSTRACTION Provider, Abstract 06/11/2025 External Device Data STL ABSTRACTION Provider, Abstract 06/10/2025 External Device Data STL ABSTRACTION Provider, Abstract 06/06/2025 Abstract [facility] Oncology and Hematology [facility] [address] [place] [address] Alfredo Bang MD 06/05/2025 Orders Only [facility] Oncology and Hematology [facility] [address] [place] [address] Alfredo Bang MD 06/03/2025 3:00 PM CDT Office Visit [facility] Oncology and Hematology [facility] [address] [place] [address] Alfredo Bang MD Anaplastic ALK-positive large cell [...] 14 1 - [birth year]03/1980 Smokeless Tobacco: Never Tobacco Cessation:Counseling Given: Not Answered Alcohol Use Standard Drinks/Week Comments Not Currently 0 (1 standard drink = 0.6 oz pur e alcohol) Comments Unknown Sex and Gender Information Value Date Recorded Sex Assigned at Not on file Legal Sex Female 9:20 AM CDT Gender Identity Not on file Sexual Orientation Not on file Last Filed Vital Signs Vital Sign Reading Time Taken Comments Blood Pressure 151/85 07/15/2025 1:03 PM ROOM SERVICE ASSOCIATE Pulse 96 07/15/2025 1:01 PM ROOM SERVICE ASSOCIATE Temperature 36.3 C (97.3 F) 07/15/2025 1:01 PM ROOM SERVICE ASSOCIATE Respiratory Rate 15 07/15/2025 1:01 PM ROOM SERVICE ASSOCIATE Oxygen Saturation 95% 07/15/2025 1:01 PM ROOM SERVICE ASSOCIATE Inhaled Oxygen Concentration - - Weight 86 kg (189 lb 9.6 oz) 07/15/2025 1:01 PM ROOM SERVICE ASSOCIATE Height 165.1 cm (5' 5) 06/03/2025 3:02 PM CDT Body Mass Index 31.55 06/03/2025 3:02 PM CDT Plan of Treatment Upcoming Encounters Date Type Department Care Team (Late st Contact Info) Description 09/16/2025 2:30 PM ROOM SERVICE ASSOCIATE Office Visit [facility] Oncology and Hematology [facility] [address] [facility] [address] [place] [address] Alfredo Bang MD [address] [facility] [address] [place] [address] Health Maintenance Due Date Last Done Comments DTAP/TDAP/TD VACCINES (1 - Tdap) 1970 BREAST CANCER SCREENING 1991 COLORECTAL SCREENING 1996 Colorectal Cancer Screening 1996 FIT-DNA Q 3 years 1996 FIT/FOBT Q 1 year 1996 Flex Sig/CT Colonography Q 5 years 1996 PNEUMOCOCCAL VACCINE 50+ YEARS (1 of 1 - PCV) 03/30/20 ZOSTER VACCINE (1 of 2) 2001 OSTEOPOROSIS SCREENING 2016 INFLUENZA VACCINE (#1) 2025 RSV VACCINE (60+ or ) (1 - 1-dose 75+ series) 2026 Procedures Procedure Name Priority Date/Time Associated Diagnosis Comments FLOW CYTOMETRY REPORT Routine 06/04/2025 2:31 PM CDT from Last 3 Months Results * FLOW CYTOMETRY REPORT (06/04/2025 2:31 PM CDT) Alfredo Bang MD PATHOLOGY/CYTOLOGY ORDERABLES F inal Result from Last 3 Months Insurance AETNA O MCR
--- OUTSIDE RECORDS SUMMARY | 2025-07-20 13:00 | XMS_ITS | Encounter Summary ---
Author Organization [facility] Address [address] [facility] [place] [address] Care Team Providers Care Adjunct Phlebotomy Instructor Name Role Phone Steve Jimenez MD Primary Care Provider [phone] Encounter Details Date Type Department Care Team (Late st Contact Info) Description 05/15/2025 Lab Requisition [facility] - Pathology Lab [address] [place] [address] Amador Herrera MD [address] [facility] [address] [place] [address] Mastitis without abscess; Other abnormal and [...] AM CDT) Case Report Flow Cytometry Case: [id number] Authorizing Provider: Amador Herrera Collected: 05/15/2025 08:02 AM MD Cole Ordering Location: [facility] - Received: 05/15/2025 12:54 PM Pathology Lab Pathologist: Maci Jason MD Specimen: Body Fluid , RIGHT BREAST SUSIE IMPLANT CYST ASPIRATION 05/15/2025 4:58 PM [facility] Final Diagnosis Body fluid, right breast susie-implant cyst aspiration: - Low-viability specimen with no clonal B-cell or CD30+ T-cell population detected 05/15/2025 4:58 PM [facility] at 1658 CDT Flow Cytometry Interpretation Viability: 54% B-cells: polytypic, kappa:lambda ratio 1.5:1 T-cells: no overt immunophenotypic aberrancy detected CD4:CD8 ratio 2.8:1, ~19% of overall events represent CD56+/CD16+ natural killer cells. A cytospin prepared from the flow cytometry specimen has been reviewed for automotive quality engineer purposes. Amongst inflammatory cells (lymphocytes, histiocytes, and neutrophils) are rare large mononuclear cells with prominent nucleoli (4 or 5 cells are seen in the cytospin). They appear histiocytoid with vacuolation. The lineage of these rare cells is uncertain, but anaplastic large cells vs. highly reactive histiocytes cannot be excluded. 05/15/2025 4:58 PM [facility] Flow Cytometry Results Differential Result Comment Flow Cell Count /uL 1,260 Total Viability % 54 Lymphocytes % 67 Dim CD45 Region % 0 Monocytes % 1 Granulocytes % 32 05/15/2025 4:58 PM [facility] Client Specimen ID # [id number] 05/15/2025 4:58 PM [facility] Reason for test Mastitis without abscess Other abnormal and inconclusive findings on diagnostic imaging of breast 05/15/2025 4:58 PM [facility] Number of markers 23 [...] Flow CD57 A-22 TCR-AB A-23 TCR-GD A-8 [place]+CD19+ A-9 Lambda+CD19+ 05/15/2025 4:58 PM CDT [facility] Pathologist Location at [facility] 05/15/2025 4:58 PM CDT [facility] Disclaimer Test performed at [facility], [address] [place], [place], [address]. *The established laboratory minimum viability is 70%. [...] complexity clinical testing. 05/15/2025 4:58 PM CDT [facility] Embedded Images 4:58 PM CDT [facility] Fluid BODY FLUID SPECIMEN / Unknown 05/15/2025 8:02 AM CDT 05/15/2025 12:54 PM CDT Amador Herrera MD LAB - PATHOLOGY/CYT OLOGY ORDERABLES Final Result [facility] [place] [address], [facility] [phone] documented in this encounter Visit Diagnoses Diagnosis Mastitis without abscess Other abnormal and inconclusive findings on diagnostic imaging of breast documented in this encounter Care Teams Adjunct Phlebotomy Instructor Relationship Specialty Start Date End Date Steve Jimenez MD [address] [place] [address] PCP - General 06/01/21 documented as of this encounter
--- OUTSIDE RECORDS SUMMARY | 2025-07-20 13:00 | XMS_ITS | Clinical Summary ---
Author Organization [facility] Address [address] [facility] [place] [address] Care Team Providers Care Sales Representative Business Courses Name Role Phone Steve Jimenez MD Primary Care Provider [phone] Source Comments [facility],non-owned Affiliates and Associated Physician Practices is amultiple site organization consisting of ambulatory clinics and hospital sitesin [place], [place], [place] and [place]. This disclosure is being madepursuant to the Care Everywhere program and may not contain all information available regarding this patient. 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 06/26/2025 Lab Requisition [facility] - Pathology Lab [address] [place] [address] Garett Ag Illness, unspecified 05/20/2025 Lab Requisition [facility] - Pathology Lab [address] [place] [address] Marco Barcenas MD Illness, unspecified 05/16/2025 Lab Requisition [facility] - Pathology Lab [address] [place] [address] Marco Barcenas MD Illness, unspecified 05/15/2025 Lab Requisition [facility] - Pathology Lab [address] [place] [address] Amador Herrera MD Mastitis without abscess; Other [...] CALENDAR YEAR 2024 COVID-19 VACCINE (1 - 2024-2 6 season) 2025 INFLUENZA VACCINE (#1) 2025 Respiratory [...] PATHOLOGY TISSUE Routine 06/25/2025 12:5 6 PM [facility] Illness, unspecified FINE NEEDLE ASPIRATION (STL) Routine 06/25/2025 12:21 PM [facility] 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 SLIDE PREP HISTOLOGY Routine 05/20/2025 10:00 AM CDT Illness, unspecified FLOW CYTOMETRY BODY FLUID Routine 05/15/2025 8:02 AM CDT Mastitis without abscess Other abnormal and inconclusive findings on diagnostic imaging of breast from Last 3 Months Results * PATHOLOGY TISSUE (06/25/2025 12:56 PM [facility]) Case Report Surgical Pathology Report Case: [id number] Authorizing Provider: Garett Ag Collected: 06/25/2025 12:56 PM Ordering Location: [facility] - Received: 06/26/2025 01:30 PM Pathology Lab Pathologist: Stefani Saul MD Specimens: A) - Breast Mast Smpl, right breast mastectomy skin implant and capsule B) - Breast Capsule, Left breast implant and capsule 06/30/2025 11:17 AM [facility] Final Diagnosis A. 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 Breast, left implant and capsule, removal: - No evidence of malignancy 06/30/2025 11:17 AM [facility] at [address] Microscopic Description and Comment The right breast [...] is negative for malignancy. 06/30/2025 11:17 AM [facility] Clinical History History of breast carcinoma status post mastectomy with saline implant. Right breast shows clinical findings suspicious for anaplastic large cell lymphoma. 06/30/2025 11:17 AM [facility] Gross Description The requisition and specimens are identified with the patient's name Ramin Morton. Received in formalin, labeled right breast mastectomy [...] red-martin tissue. The implant shell is inscribed Allergan 401 CC LOT [id number] style 115 with no defects. The inner aspect of the capsule is purple-martin with red-purple thickened areas. Sectioning shows predominantly beard-martin parenchyma with focal areas of hemorrhage in the thickened regions, but no discrete masses or firm areas are present. Valve Repairer sections are submitted as follows: A1 medical collections representative tissue adherent to implant shell, A2-A6 medical collections representative capsule, A7 skin including discoloration. Specimen [...] shell is inscribed Allergan 322 cc LOT [id number] style 115 with no defects. The inner aspect of the capsule is beard-white and smooth. The cut surface is beard-white with an average thickness of 0.1 cm and minimal variation. Valve Repairer sections are submitted as follows: B1 capsule, B2 tissue adherent to implant. Specimen processing times on 06/26/2025 are as follows: Time of excision: 1301 on 06/25/2025 Time specimen is placed in formalin: 1315 on 06/25/2025 Total cold ischemia time: 14 minutes AH 06/30/2025 11:17 AM [facility] Pathologist Location at [facility] 06/30/2025 11:17 AM [facility] Disclaimer The performance characteristics of all immunohistochemical and indirect immunofluorescence stains (if any) cited in this report were determined by the Histopathology Laboratory of [facility]. Some of these tests were developed by [...] the attending (teaching) pathologist. 06/30/2025 11:17 AM [facility] Embedded Images 06/30/2025 11:17 AM [facility] Pathology/Cytology SIMPLE MASTECTOMY / Unknown 06/25/2025 12:56 PM [facility] 06/26/2025 1:30 PM [facility] Miscellaneous samples (specimen) CAPSULAR CONTRACTURE OF BREAST / Unknown 06/25/2025 1:01 PM [facility] 06/26/2025 1:37 PM [facility] Garett Ag LAB - PATHOLOGY/CYTOLOGY ORDER ADRIANNE Final Result [facility] [address] [place], [place] [address] [place] [address] * FINE NEEDLE ASPIRATION (STL) (06/25/2025 12:21 PM [facility]) Case Report Medical Cytology Report Case: [id number] Authorizing Provider: Garett Ag Collected: 06/25/2025 12:21 PM Ordering Location: [facility] - Received: 06/26/2025 01:38 PM Pathology Lab Pathologist: Bharath Ceja MD Specimen: Breast, Rt breast implant capsule fluid 06/30/2025 1:51 PM [facility] Specimen Adequacy Adequate cellularity for evaluation. 06/30/2025 1:51 PM [facility] Final Diagnosis Breast, right implant capsule fluid, cytology: - Rare highly atypical lymphocytes present, see comment 06/30/2025 1:51 PM [facility] at [address] Clinical History History of breast carcinoma status post mastectomy with saline implant. Right breast shows clinical findings suspicious for anaplastic large cell lymphoma. 06/30/2025 1:51 PM [facility] Gross Description 1 Pap stained Thin Prep slide and 1 cell block from 3cc bloody fluid 06/30/2025 1:51 PM [facility] Microscopic Description The specimen is hypocellular and consists of scattered mixed inflammatory cells and rare enlarged atypical lymphocytes. Atypical lymphocytes show high NC ratio, hyperchromasia and clumped chromatin. Additional CD30 stain is positive in atypical enlarged lymphocytes. 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 Please also correlate with surgical pathology report, [id number]. 06/30/2025 1:51 PM [facility] Pathologist Location at [facility] 06/30/2025 1:51 PM [facility] Disclaimer The performance characteristics of all immunohistochemical and indirect immunofluorescence stains (if any) cited in this report were determined by the [facility]opathology Laboratory of [facility]. Some of these tests rely on the use of analyte-specific reagents and are subject to specific labeling requirements by the US Food and Drug Administration. Such tests were developed by the Histology Laboratory of [facility] and have not been cleared or approved [...] the attending (teaching) pathologist. 06/30/2025 1:51 PM [facility] Embedded Images 06/30/2025 1:51 PM [facility] Pathology/Cytolo gy ENTIRE BREAST / Unknown 06/25/2025 12:21 PM [facility] 06/26/2025 1:38 PM [facility] Garett Ag LAB - PATHOLOGY/CYTOLOGY ORDER ADRIANNE Final Result Performing Organization Address [facility] Co de Phone Number [facility] [address] [phone] * SLIDE PREP HISTOLOGY (05/20/2025 10:00 AM CDT) Pathologist [facility] Client Specimen ID # [id number] 06/04/2025 1:24 PM CDT [facility] Number of Blocks Received 0 06/04/2025 1:24 PM CDT [facility] Number of Slides 1 06/04/2025 1:24 PM CDT [facility] Number of Control Slides 1 06/04/2025 1:24 PM CDT [facility] Pathology/Cytolo gy 05/20/2025 10:00 AM CDT 05/20/2025 10:31 AM CDT Marco Barcenas MD LAB - PATHOLOGY/CYTOLOGY ORDERAB LES Final Result Performing Organization Address [facility] Co de Phone Number [facility] [address] [place] [address] * FLOW CYTOMETRY BODY FLUID (05/15/2025 8:02 AM CDT) Pathologist [facility] Case Report Flow Cytometry Case: [id number] Authorizing Provider: Amador Herrera Collected: 05/15/2025 08:02 AM MD Cole Ordering Location: [facility] - Received: 05/15/2025 12:54 PM Pathology Lab Pathologist: Maci Jason MD Specimen: Body Fluid , RIGHT BREAST SUSIE IMPLANT CYST ASPIRATION 05/15/2025 4:58 PM CDT [facility] Final Diagnosis Body fluid, right breast susie-implant cyst aspiration: - Low-viability specimen with no clonal B-cell or CD30+ T-cell population detected 05/15/2025 4:58 PM [facility] at 1658 CDT Flow Cytometry Interpretation Viability: 54% B-cells: polytypic, kappa:lambda ratio 1.5:1 T-cells: no overt immunophenotypic aberrancy detected CD4:CD8 ratio 2.8:1, ~19% of overall events represent CD56+/CD16+ natural killer cells. A cytospin prepared from the flow cytometry specimen has been reviewed for senior quality manager purposes. Amongst inflammatory cells (lymphocytes, histiocytes, and neutrophils) are rare large mononuclear cells with prominent nucleoli (4 or 5 cells are seen in the cytospin). They appear histiocytoid with vacuolation. The lineage of these rare cells is uncertain, but anaplastic large cells vs. highly reactive histiocytes cannot be excluded. 05/15/2025 4:58 PM [facility] Flow Cytometry Results Differential Result Comment Flow Cell Count /uL 1,260 Total Viability % 54 Lymphocytes % 67 Dim CD45 Region % 0 Monocytes % 1 Granulocytes % 32 05/15/2025 4:58 PM T [facility] Client Specimen ID # [id number] 05/15/2025 4:58 PM [facility] Reason for test Mastitis without abscess Other abnormal and inconclusive findings on diagnostic imaging of breast 05/15/2025 4:58 PM [facility] Number of markers 23 were [...] Flow CD57 A-22 TCR-AB A-23 TCR-GD A-8 [place]+CD19+ A-9 Lambda+CD19+ 05/15/2025 4:58 PM [facility] Pathologist Location at [facility] 05/15/2025 4:58 PM [facility] Disclaimer Test performed at [facility], [address] [place], [place], [address]. *The established laboratory minimum viability is 70%. [...] complexity clinical testing. 05/15/2025 4:58 PM CDT [facility] Embedded Images 4:58 PM CDT [facility] Fluid BODY FLUID SPECIMEN / Unknown 05/15/2025 8:02 AM CDT 05/15/2025 12:54 PM CDT Amador Herrera MD LAB - PATHOLOGY/CYT OLOGY ORDERABLES Final Result Performing Organization Address City/State/[facility] Co de Phone Number [facility] [address] [place] [address], [facility] [phone] from Last 3 Months Insurance [employer] MEDICARE ADV SELF PAY NO INSURANCE Member Subscriber Plan / Payer (Ef fective for All Dates) Name:Ramin Morton Member ID:Not on file Relation to Subscriber:Not on file Name:RAMIN MORTON Subscriber ID:Not on file (Home) Address: [address] [place] [address] Payer ID:Not on file Group ID:Not on file Type:Self Pay Address: [place], [place] Care Teams Sales Representative Business Courses Relationship Specialty Start Date End Date Steve Jimenez MD [address] [place] [place] [address] PCP - General 06/01/21
--- OUTSIDE RECORDS SUMMARY | 2025-07-20 13:00 | XMS_ITS | Encounter Summary ---
Author Organization [facility] Address [address] [facility] [place] [address] Care Team Providers Care Textile Engineer Name Role Phone Steve Jimenez MD Primary Care Provider [phone] Encounter Details Date Type Department Care Team (Late st Contact Info) Description 05/16/2025 Lab Requisition [facility] - Pathology Lab [address] [place] [address] Marco Barcenas MD [address] [address] Illness, unspecified Social History Tobacco Use [...] unspecified documented in this encounter Care Teams Textile Engineer Relationship Specialty Start Date End Date Steve Jimenez MD [address] [place] [address] PCP - General 06/01/21 documented as of this encounter
--- OUTSIDE RECORDS SUMMARY | 2025-07-20 13:00 | XMS_ITS | Encounter Summary ---
Author Organization [facility] Address [address] [facility] [place] [address] Care Team Providers Care Downstairs Maid Name Role Phone Steve Jimenez MD Primary Care Provider [phone] Encounter Details Date Type Department Care Team (Late st Contact Info) Description 05/20/2025 Lab Requisition [facility] - Pathology Lab [address] [place] [address] Marco Barcenas MD [address] [address] Illness, unspecified Social History Tobacco [...] 10:00 AM CDT) Client Specimen ID # [id number] 06/04/2025 1:24 PM CDT [facility] Number of Blocks Received 0 06/04/2025 1:24 PM CDT [facility] Number of Slides 1 06/04/2025 1:24 PM CDT [facility] Number of Control Slides 1 06/04/2025 1:24 PM CDT [facility] Pathology/Cytolo gy 05/20/2025 10:00 AM CDT 05/20/2025 10:31 AM CDT Marco Barcenas MD LAB - PATHOLOGY/CYTOLOGY ORDERAB LES Final Result Performing Organization Address City/State/[facility] Co de Phone Number [facility] [address] [phone] documented in this encounter Visit Diagnoses Diagnosis Illness, unspecified documented in this encounter Care Teams Downstairs Maid Relationship Specialty Start Date End Date Steve Jimenez MD [address] [place] [address] PCP - General 06/01/21 documented as of this encounter
[2025-07-20 13:07] VITALS: BP 169/89; PULSE 88; RESP 20; TEMP 36.6; O2SAT 98
--- NOTE | 2025-07-20 13:12 | PC.NURSE ---
Pt. c-spine tender to palpation. at bedside states she's had a lot of neck problems. C-collar applied.
--- NOTE | 2025-07-20 13:21 | PC.NURSE ---
Dr. Connor notified of pt. complaint. Verbal order given for imaging.
--- OUTSIDE RECORDS SUMMARY | 2025-07-20 13:41 | XMS_ITS | Clinical Summary ---
Author Organization [facility] Joey beatty Nanci Address [address] [place] [address] Care Team Providers Care Building Maintenance Repairer Name Role Phone Unavailable Primary Care Provider [...] Department Care Team Description 07/15/2025 1:00 PM SENIOR ENLISTED ADVISOR Office Visit [facility] Oncology and Hematology [facility] [address] [place] [address] Alfredo Bang MD Anaplastic ALK-positive large cell lymphoma, unspecified body region (CMS/HCC) (Primary Dx) 06/12/2025 4:30 PM CDT Telephone Check Up [facility] Oncology and Hematology [facility] [address] [place] [address] Alfredo Bang MD Anaplastic ALK-positive large cell lymphoma, unspecified body region (CMS/HCC) (Primary Dx) 06/11/2025 External Device Data STL ABSTRACTION Provider, Abstract 06/11/2025 External Device Data STL ABSTRACTION Provider, Abstract 06/10/2025 External Device Data STL ABSTRACTION Provider, Abstract 06/06/2025 Abstract [facility] Oncology and Hematology [facility] [address] [place] [address] Alfredo Bang MD 06/05/2025 Orders Only [facility] Oncology and Hematology [facility] [address] [place] [address] Alfredo Bang MD 06/03/2025 3:00 PM CDT Office Visit [facility] Oncology and Hematology [facility] [address] [place] [address] Alfredo Bang MD Anaplastic ALK-positive large cell [...] Comments Blood Pressure 151/85 07/15/2025 1:03 PM SENIOR ENLISTED ADVISOR Pulse 96 07/15/2025 1:01 PM SENIOR ENLISTED ADVISOR Temperature 36.3 C (97.3 F) 07/15/2025 1:01 PM SENIOR ENLISTED ADVISOR Respiratory Rate 15 07/15/2025 1:01 PM SENIOR ENLISTED ADVISOR Oxygen Saturation 95% 07/15/2025 1:01 PM SENIOR ENLISTED ADVISOR Inhaled Oxygen Concentration - - Weight 86 kg (189 lb 9.6 oz) 07/15/2025 1:01 PM SENIOR ENLISTED ADVISOR Height 165.1 cm (5' 5) 06/03/2025 3:02 PM CDT Body Mass Index 31.55 06/03/2025 3:02 PM CDT Plan of Treatment Upcoming Encounters Date Type Department Care Team (Late st Contact Info) Description 09/16/2025 2:30 PM SENIOR ENLISTED ADVISOR Office Visit [facility] Oncology and Hematology [facility] [address] [facility] [address] [place] [address] Alfredo Bang MD [address] [facility] [address] [place] [address] Health Maintenance Due Date Last [...]
--- OUTSIDE RECORDS SUMMARY | 2025-07-20 13:41 | XMS_ITS | Encounter Summary ---
Author Organization [facility] Address [address] [facility] [place] [address] Care Team Providers Care Forestry Conservation Worker Name Role Phone Steve Jimenez MD Primary Care Provider [phone] Encounter Details Date Type Department Care Team (Late st Contact Info) Description 05/16/2025 Lab Requisition [facility] - Pathology Lab [address] [place] [address] Marco Barcenas MD [address] [address] Illness, unspecified Social History Tobacco [...] unspecified documented in this encounter Care Teams Forestry Conservation Worker Relationship Specialty Start Date End Date Steve Jimenez MD [address] [place] [address] PCP - General 06/01/21 documented as of this encounter
--- OUTSIDE RECORDS SUMMARY | 2025-07-20 13:41 | XMS_ITS | Encounter Summary ---
Author Organization [facility] Address [address] [place] [address] Care Team Providers Care Manager Coding Name Role Phone Steve Jimenez MD Primary Care Provider [phone] Encounter Details Date Type Department Care Team (Late st Contact Info) Description 05/15/2025 Lab Requisition [facility] - Pathology Lab [address] [place] [address] Amador Herrera MD [address] [facility] [address] [place] [address] Mastitis without abscess; Other abnormal and [...] AM CDT) Case Report Flow Cytometry Case: [id number] Authorizing Provider: Amador Herrera Collected: 05/15/2025 08:02 AM MD Cole Ordering Location: [facility] - Received: 05/15/2025 12:54 PM Pathology Lab Pathologist: Maci Jason MD Specimen: Body Fluid , RIGHT BREAST SUSIE IMPLANT CYST ASPIRATION 05/15/2025 4:58 PM [facility] Final Diagnosis Body fluid, right breast susie-implant cyst aspiration: - Low-viability specimen with no clonal B-cell or CD30+ T-cell population detected 05/15/2025 4:58 PM [facility] at 1658 CDT Flow Cytometry Interpretation Viability: 54% B-cells: polytypic, kappa:lambda ratio 1.5:1 T-cells: no overt immunophenotypic aberrancy detected CD4:CD8 ratio 2.8:1, ~19% of overall events represent CD56+/CD16+ natural killer cells. A cytospin prepared from the flow cytometry specimen has been reviewed for water quality tester purposes. Amongst inflammatory cells (lymphocytes, histiocytes, and neutrophils) are rare large mononuclear cells with prominent nucleoli (4 or 5 cells are seen in the cytospin). They appear histiocytoid with vacuolation. The lineage of these rare cells is uncertain, but anaplastic large cells vs. highly reactive histiocytes cannot be excluded. 05/15/2025 4:58 PM [facility] Flow Cytometry Results Differential Result Comment Flow Cell Count /uL 1,260 Total Viability % 54 Lymphocytes % 67 Dim CD45 Region % 0 Monocytes % 1 Granulocytes % 32 05/15/2025 4:58 PM [facility] Client Specimen ID # [id number] 05/15/2025 4:58 PM [facility] Reason for test Mastitis without abscess Other abnormal and inconclusive findings on diagnostic imaging of breast 05/15/2025 4:58 PM [facility] Number of markers 23 [...] Flow CD57 A-22 TCR-AB A-23 TCR-GD A-8 [place]+CD19+ A-9 Lambda+CD19+ 05/15/2025 4:58 PM CDT [facility] Pathologist Location at [facility] 05/15/2025 4:58 PM CDT [facility] Disclaimer Test performed at [facility], [address] [place], [place], [address]. *The established laboratory minimum viability is 70%. [...] complexity clinical testing. 05/15/2025 4:58 PM CDT [facility] Embedded Images 4:58 PM CDT [facility] Fluid BODY FLUID SPECIMEN / Unknown 05/15/2025 8:02 AM CDT 05/15/2025 12:54 PM CDT Amador Herrera MD LAB - PATHOLOGY/CYT OLOGY ORDERABLES Final Result [facility] [facility] [place] [address], [facility] [phone] documented in this encounter Visit Diagnoses Diagnosis Mastitis without abscess Other abnormal and inconclusive findings on diagnostic imaging of breast documented in this encounter Care Teams Manager Coding Relationship Specialty Start Date End Date Steve Jimenez MD [address] [place] [address] PCP - General 06/01/21 documented as of this encounter
--- OUTSIDE RECORDS SUMMARY | 2025-07-20 13:41 | XMS_ITS | Encounter Summary ---
Author Organization [facility] Address [address] [place] [address] Care Team Providers Care Bioinformatics Team Member Name Role Phone Steve Jimenez MD Primary Care Provider [phone] Encounter Details Date Type Department Care Team (Late st Contact Info) Description 05/20/2025 Lab Requisition [facility] - Pathology Lab [address] [place] [address] Marco Barcenas MD [address] [address] Illness, unspecified Social History Tobacco [...] 10:00 AM CDT) Client Specimen ID # [id number] 06/04/2025 1:24 PM CDT [facility] Number of Blocks Received 0 06/04/2025 1:24 PM CDT [facility] Number of Slides 1 06/04/2025 1:24 PM CDT [facility] Number of Control Slides 1 06/04/2025 1:24 PM CDT [facility] Pathology/Cytolo gy 05/20/2025 10:00 AM CDT 05/20/2025 10:31 AM CDT Marco Barcenas MD LAB - PATHOLOGY/CYTOLOGY ORDERAB LES Final Result Performing Organization Address City/State/[facility] Co de Phone Number [facility] [address] [phone] documented in this encounter Visit Diagnoses Diagnosis Illness, unspecified documented in this encounter Care Teams Bioinformatics Team Member Relationship Specialty Start Date End Date Steve Jimenez MD [address] [place] [address] PCP - General 06/01/21 documented as of this encounter
--- OUTSIDE RECORDS SUMMARY | 2025-07-20 13:41 | XMS_ITS | Encounter Summary ---
Author Organization [facility] Address [address] [place] [address] Care Team Providers Care Arts Education Teacher Name Role Phone Steve Jimenez MD Primary Care Provider [phone] Encounter Details Date Type Department Care Team (Late st Contact Info) Description 06/26/2025 Lab Requisition [facility] - Pathology Lab [address] [place] [address] Garett Ag [address] [facility] [address] [place] [address] Illness, unspecified Social History Tobacco Use Types [...] PATHOLOGY TISSUE Routine 06/25/2025 12:5 6 PM BPM DEVELOPER Illness, unspecified documented in this encounter Results * PATHOLOGY TISSUE (06/25/2025 12:56 PM BPM DEVELOPER) Case Report Surgical Pathology Report Case: [id number] Authorizing Provider: Garett Ag Collected: 06/25/2025 12:56 PM Ordering Location: [facility] Physician [facility] - Received: 06/26/2025 01:30 PM Pathology Lab Pathologist: Stefani Saul MD Specimens: A) - Breast Mast Smpl, right breast mastectomy skin implant and capsule B) - Breast Capsule, Left breast implant and capsule 06/30/2025 11:[address] [facility] Final Diagnosis A. 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 Breast, left implant and capsule, removal: - No evidence of malignancy 06/30/2025 11:[address] [facility] at 1117 BPM DEVELOPER Microscopic Description and Comment The right breast [...] is negative for malignancy. 06/30/2025 11:[address] [facility] Clinical History History of breast carcinoma status post mastectomy with saline implant. Right breast shows clinical findings suspicious for anaplastic large cell lymphoma. 06/30/2025 11:[address] [facility] Gross Description The [...] red-martin tissue. The implant shell is inscribed [email or web address] 401 CC LOT [id number] style 115 with no defects. The inner aspect of the capsule is purple-martin with red-purple thickened areas. Sectioning shows predominantly beard-martin parenchyma with focal areas of hemorrhage in the thickened regions, but no discrete masses or firm areas are present. Radio Intelligence Operator sections are submitted as follows: A1 patient admitting representative tissue adherent to implant shell, A2-A6 patient admitting representative capsule, A7 skin including discoloration. Specimen [...] shell is inscribed Allergan 322 cc LOT [id number] style 115 with no defects. The inner aspect of the capsule is beard-white and smooth. The cut surface is beard-white with an average thickness of 0.1 cm and minimal variation. Radio Intelligence Operator sections are submitted as follows: B1 capsule, B2 tissue adherent to implant. Specimen processing times on 06/26/2025 are as follows: Time of excision: 1301 on 06/25/2025 Time specimen is placed in formalin: 1315 on 06/25/2025 Total cold ischemia time: 14 minutes AH 06/30/2025 11:[address] [facility] Pathologist Location at [facility] 06/30/2025 11:[address] [facility] Disclaimer The performance characteristics of all immunohistochemical and indirect immunofluorescence stains (if any) cited in this report were determined by the Histopathology Laboratory of [facility]. Some of these tests were developed by [...] the attending (teaching) pathologist. 06/30/2025 11:17 AM BPM DEVELOPER [facility] Embedded Images 06/30/2025 11:17 AM BPM DEVELOPER [facility] Pathology/Cytology SIMPLE MASTECTOMY / Unknown 06/25/2025 12:56 PM BPM DEVELOPER 06/26/2025 1:30 PM BPM DEVELOPER Miscellaneous samples (specimen) CAPSULAR CONTRACTURE OF BREAST / Unknown 06/25/2025 1:01 PM BPM DEVELOPER 06/26/2025 1:37 PM BPM DEVELOPER Garett Ag LAB - PATHOLOGY/CYTOLOGY ORDER ADRIANNE Final Result [facility] [address] [phone] documented in this encounter Visit Diagnoses Diagnosis Illness, unspecified documented in this encounter Care Teams Arts Education Teacher Relationship Specialty Start Date End Date Steve Jimenez MD [address] [place] [address] PCP - General 06/01/21 documented as of this encounter
--- OUTSIDE RECORDS SUMMARY | 2025-07-20 13:41 | XMS_ITS | Clinical Summary ---
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
--- OUTSIDE RECORDS SUMMARY | 2025-07-20 13:41 | XMS_ITS | Clinical Summary ---
Author Organization [facility] Address [address] [facility] [place] [address] Care Team Providers Care Cert Pharmacy Tech Name Role Phone Steve Jimenez MD Primary Care Provider [phone] Source Comments [facility],non-owned Affiliates and Associated Physician Practices is amultiple site organization consisting of ambulatory clinics and hospital sitesin [place], [place], [place] and [place]. This disclosure is being madepursuant to the Care Everywhere program and may not contain all information available regarding this patient. 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 06/26/2025 Lab Requisition [facility] - [facility]ology Lab [address] [place] [address] Garett Ag Illness, unspecified 05/20/2025 Lab Requisition [facility] - Pathology Lab [address] [place] [address] Marco Barcenas MD Illness, unspecified 05/16/2025 Lab Requisition [facility] - Pathology Lab [address] [place] [address] Marco Barcenas MD Illness, unspecified 05/15/2025 Lab Requisition [facility] - [facility]ology Lab [address] [place] [address] Amador Herrera MD Mastitis without abscess; Other [...] PATHOLOGY TISSUE Routine 06/25/2025 12:5 6 PM SCHEME TECHNICIAN Illness, unspecified FINE NEEDLE ASPIRATION (STL) Routine 06/25/2025 12:21 PM SCHEME TECHNICIAN 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 - Received: 06/26/2025 01:30 PM Pathology Lab Pathologist: Stefani Saul MD Specimens: A) - Breast Mast Smpl, right breast mastectomy skin implant and capsule B) - Breast Capsule, Left breast implant and capsule 06/30/2025 11:17 AM [facility] Final Diagnosis A. 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 Breast, left implant and capsule, removal: - No evidence of malignancy 06/30/2025 11:17 AM [facility] at 1117 SCHEME TECHNICIAN Microscopic Description and Comment The right [...] is negative for malignancy. 06/30/2025 11:17 AM [facility] Clinical History History of breast carcinoma status post mastectomy with saline implant. Right breast shows clinical findings suspicious for anaplastic large cell lymphoma. 06/30/2025 11:17 AM [facility] Gross Description The requisition and [...] shell is inscribed Allergan 401 CC LOT [id number] style 115 with no defects. The inner aspect of the capsule is purple-martin with red-purple thickened areas. Sectioning shows predominantly beard-martin parenchyma with focal areas of hemorrhage in the thickened regions, but no discrete masses or firm areas are present. Stitch Bonder Machine Operator Helper sections are submitted as follows: A1 electroplating sales representative tissue adherent to implant shell, A2-A6 electroplating sales representative capsule, A7 skin including discoloration. Specimen [...] shell is inscribed Allergan 322 cc LOT [id number] style 115 with no defects. The inner aspect of the capsule is beard-white and smooth. The cut surface is beard-white with an average thickness of 0.1 cm and minimal variation. Stitch Bonder Machine Operator Helper sections are submitted as follows: B1 capsule, B2 tissue adherent to implant. Specimen processing times on 06/26/2025 are as follows: Time of excision: 1301 on 06/25/2025 Time specimen is placed in formalin: 1315 on 06/25/2025 Total cold ischemia time: 14 minutes AH 06/30/2025 11:17 AM [facility] Pathologist Location at [facility] 06/30/2025 11:17 AM [facility] Disclaimer The performance characteristics of all immunohistochemical and indirect immunofluorescence stains (if any) cited in this report were determined by the Histopathology Laboratory of [facility]. Some of these tests were developed [...] the attending (teaching) pathologist. 06/30/2025 11:17 AM [facility] Embedded Images 06/30/2025 11:17 AM [facility] Pathology/Cytology SIMPLE MASTECTOMY / Unknown 06/25/2025 12:56 PM SCHEME TECHNICIAN 06/26/2025 1:30 PM SCHEME TECHNICIAN Miscellaneous samples (specimen) CAPSULAR CONTRACTURE OF BREAST / Unknown 06/25/2025 1:01 PM SCHEME TECHNICIAN 06/26/2025 1:37 PM SCHEME TECHNICIAN Garett Ag LAB - PATHOLOGY/CYTOLOGY ORDER ADRIANNE Final Result [facility] [address] [place], [place] [id number] [place] [address] * FINE NEEDLE ASPIRATION (STL) (06/25/2025 12:21 PM SCHEME TECHNICIAN) Case Report Medical Cytology Report Case: [id number] Authorizing Provider: Garett Ag Collected: 06/25/2025 12:21 PM Ordering Location: [facility] - Received: 06/26/2025 01:38 PM Pathology Lab Pathologist: Bharath Ceja MD Specimen: Breast, Rt breast implant capsule fluid 06/30/2025 1:51 PM [facility] Specimen Adequacy Adequate cellularity for evaluation. 06/30/2025 1:51 PM [facility] Final Diagnosis Breast, right implant capsule fluid, cytology: - Rare highly atypical lymphocytes present, see comment 06/30/2025 1:51 PM [facility] at 1351 SCHEME TECHNICIAN Clinical History History of breast carcinoma status post mastectomy with saline implant. Right breast shows clinical findings suspicious for anaplastic large cell lymphoma. 06/30/2025 1:51 PM [facility] Gross Description 1 Pap stained Thin Prep slide and 1 cell block from 3cc bloody fluid 06/30/2025 1:51 PM [facility] Microscopic Description The specimen is hypocellular and consists of scattered mixed inflammatory cells and rare enlarged atypical lymphocytes. Atypical lymphocytes show high NC ratio, hyperchromasia and clumped chromatin. Additional CD30 stain is positive in atypical enlarged lymphocytes. 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 Please also correlate with surgical pathology report, [id number]. 06/30/2025 1:51 PM [facility] Pathologist Location at [facility] 06/30/2025 1:51 PM [facility] Disclaimer The performance characteristics of all immunohistochemical and indirect immunofluorescence stains (if any) cited in this report were determined by the Histopathology Laboratory of [facility]. Some of these tests rely on the use of analyte-specific reagents and are subject to specific labeling requirements by the US Food and Drug Administration. Such tests were developed by the Histology Laboratory of [facility] and have not been cleared or [...] the attending (teaching) pathologist. 06/30/2025 1:51 PM [facility] Embedded Images 06/30/2025 1:51 PM [facility] Pathology/Cytolo gy ENTIRE BREAST / Unknown 06/25/2025 12:21 PM SCHEME TECHNICIAN 06/26/2025 1:38 PM SCHEME TECHNICIAN Garett Ag LAB - PATHOLOGY/CYTOLOGY ORDER ADRIANNE Final Result Performing Organization Address [facility] Co de Phone Number [facility] [address] [phone] * SLIDE PREP HISTOLOGY (05/20/2025 10:00 AM CDT) Pathologist [facility] Client Specimen ID # [id number] 06/04/2025 1:24 PM CDT [facility] Number of Blocks Received 0 06/04/2025 1:24 PM CDT [facility] Number of Slides 1 06/04/2025 1:24 PM CDT [facility] Number of Control Slides 1 06/04/2025 1:24 PM CDT [facility] Pathology/Cytolo gy 05/20/2025 10:00 AM CDT 05/20/2025 10:31 AM CDT Marco Barcenas MD LAB - PATHOLOGY/CYTOLOGY ORDERAB LES Final Result Performing Organization Address [facility] Co de Phone Number [facility] [address] [place] [address] * FLOW CYTOMETRY BODY FLUID (05/15/2025 8:02 AM CDT) Pathologist [facility] Case Report Flow Cytometry Case: [id number] Authorizing Provider: Amador Herrera Collected: 05/15/2025 08:02 AM MD Cole Ordering Location: [facility] - Received: 05/15/2025 12:54 PM Pathology Lab Pathologist: Maci Jason MD Specimen: Body Fluid , RIGHT BREAST SUSIE IMPLANT CYST ASPIRATION 05/15/2025 4:58 PM CDT [facility] Final Diagnosis Body fluid, right breast susie-implant cyst aspiration: - Low-viability specimen with no clonal B-cell or CD30+ T-cell population detected 05/15/2025 4:58 PM [facility] at 1658 CDT Flow Cytometry Interpretation Viability: 54% B-cells: polytypic, kappa:lambda ratio 1.5:1 T-cells: no overt immunophenotypic aberrancy detected CD4:CD8 ratio 2.8:1, ~19% of overall events represent CD56+/CD16+ natural killer cells. A cytospin prepared from the flow cytometry specimen has been reviewed for air quality specialist purposes. Amongst inflammatory cells (lymphocytes, histiocytes, and neutrophils) are rare large mononuclear cells with prominent nucleoli (4 or 5 cells are seen in the cytospin). They appear histiocytoid with vacuolation. The lineage of these rare cells is uncertain, but anaplastic large cells vs. highly reactive histiocytes cannot be excluded. 05/15/2025 4:58 PM [facility] Flow Cytometry Results Differential Result Comment Flow Cell Count /uL 1,260 Total Viability % 54 Lymphocytes % 67 Dim CD45 Region % 0 Monocytes % 1 Granulocytes % 32 05/15/2025 4:58 PM T [facility] Client Specimen ID # [id number] 05/15/2025 4:58 PM [facility] Reason for test Mastitis without abscess Other abnormal and inconclusive findings on diagnostic imaging of breast 05/15/2025 4:58 PM [facility] Number of markers 23 were [...] Flow CD57 A-22 TCR-AB A-23 TCR-GD A-8 Reese+CD19+ A-9 Lambda+CD19+ 05/15/2025 4:58 PM [facility] Pathologist Location at [facility] 05/15/2025 4:58 PM [facility] Disclaimer Test performed at [facility], [address] [place], [place], [address]. *The established laboratory minimum viability is 70%. [...] complexity clinical testing. 05/15/2025 4:58 PM CDT [facility] Embedded Images 4:58 PM CDT [facility] Fluid BODY FLUID SPECIMEN / Unknown 05/15/2025 8:02 AM CDT 05/15/2025 12:54 PM CDT Amador Herrera MD LAB - PATHOLOGY/CYT OLOGY ORDERABLES Final Result Performing Organization Address City/State/[facility] Co de Phone Number [facility] [address] [place] [address], [facility] [phone] from Last 3 Months Insurance [employer] MEDICARE ADV SELF PAY NO INSURANCE Member Subscriber Plan / Payer (Ef fective for All Dates) Name:Ramin Morton Member ID:Not on file Relation to Subscriber:Not on file Name:RAMIN MORTON Subscriber ID:Not on file (Home) Address: [address] [place] [address] Payer ID:Not on file Group ID:Not on file Type:Self Pay Address: [place], [place] Care Teams Cert Pharmacy Tech Relationship Specialty Start Date End Date Steve Jimenez MD [address] [place] [address] PCP - General 06/01/21
--- OUTSIDE RECORDS SUMMARY | 2025-07-20 13:41 | XMS_ITS | Encounter Summary ---
Author Organization 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 06/30/2025 1:51 PM [facility] Final Diagnosis Breast, right implant capsule fluid, cytology: - Rare highly atypical lymphocytes present, see comment 06/30/2025 1:51 PM [facility] at [address] NATURAL RESOURCES PROFESSOR Clinical History History of breast carcinoma status post mastectomy with saline implant. Right breast shows clinical findings suspicious for anaplastic large cell lymphoma. 06/30/2025 1:51 PM [facility] Gross Description 1 Pap stained Thin Prep slide and 1 cell block from 3cc bloody fluid 06/30/2025 1:51 PM [facility] Microscopic Description The specimen is hypocellular and consists of scattered mixed inflammatory cells and rare enlarged atypical lymphocytes. Atypical lymphocytes show high NC ratio, hyperchromasia and clumped chromatin. Additional CD30 stain is positive in atypical enlarged lymphocytes. 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 Please also correlate with surgical pathology report, [id number]. 06/30/2025 1:51 PM [facility] Pathologist Location at [facility] 06/30/2025 1:51 PM [facility] Disclaimer The performance characteristics of all immunohistochemical and indirect immunofluorescence stains (if any) cited in this report were determined by the Histopathology Laboratory of [facility]. Some of these tests rely on the use of analyte-specific reagents and are subject to specific labeling requirements by the [place] Food and Drug Administration. Such tests were developed by the Histology Laboratory of [facility] and have not been cleared or approved [...] the attending (teaching) pathologist. 06/30/2025 1:51 PM [facility] Embedded Images 06/30/2025 1:51 PM [facility] Pathology/Cytolo gy ENTIRE BREAST / Unknown 06/25/2025 12:21 PM NATURAL RESOURCES PROFESSOR 06/26/2025 1:38 PM NATURAL RESOURCES PROFESSOR Garett Ancelmo LAB - PATHOLOGY/CYTOLOGY ORDER ADRIANNE Final Result [facility] [address] 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
--- NOTE | 2025-07-20 14:03 | ED_ITS ---
HPI - General Adult General Chief complaint: Fall Stated complaint: fall, hit head, confuse and does not remember. Time Seen by Provider: 07/20/25 13:28 History of Present Illness HPI narrative: 75-year-old female presented to the emergency department for evaluation after having a ground level fall. Patient is family states that the patient slipped on the ice and struck her head. Patient had no loss consciousness but was confused after the fall. Patient is not on any blood thinners. Patient does complain of posterior head pain. Patient denies any other pain or injury. Family states the patient was more confused after the event but is closer to her baseline at this time. At time of evaluation patient does not appear to be confused and is appropriately orientated. Related Data Home Medications ?Medication ?Instructions ?Recorded ?Confirmed ?Last Taken ?Type cholecalciferol (vitamin D3) 25 1,000 unit PO BID 07/2106/25/25 06/21/25 History mcg (1,000 unit) capsule multivitamin 1 tablet PO DAILY 01/14/20 1 08/25/24 06/21/25 History vitamin B complex (B 1 tablet PO DAILY 07/10/23 1 08/25/24 06/22/25 History Complex-Vitamin B12 tablet) calcium carbonate 600 mg PO DAILY 01/16/2501/1206/21/25 History ascorbate calcium (vitamin C) 500 500 mg PO DAILY 05/2206/25/25 06/24/25 History mg tablet Allergies Allergy/AdvReac Type Severity Reaction Status Date / Time cefuroxime AdvReac Severe Hives Verified 06/30/25 10:25 Review of Systems Review of Systems: All systems reviewed & are unremarkable except as noted in HPI and below PMFSH Past Medical History Medical History Arthritis of carpometacarpal (CMC) joint of right thumb Radial styloid tenosynovitis of right hand Overweight (BMI 25.0-29.9) Alopecia areata HTN (hypertension), benign Hypercalcemia Hyperkalemia Hyperlipidemia LDL goal <100 Kidney disease, chronic, stage III (moderate, EGFR 30-59 ml/min) 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 Postmenopausal (~2003) BMI 27.0-27.9,adult Breast cancer Anemia BMI 26.0-26.9,adult Vitamin D deficiency Anxiety Hair thinning Fallen bladder Encounter for breast reconstruction following mastectomy Surgical History Surgical History History of cataract surgery Status post arthroscopy of left knee surgery February 2020 H/O thumb surgery 2007 left thumb [facility]MC arthroplasty - [place] H/O toe surgery Hx of LASIK H/O: hysterectomy (~2010) H/O dilation and curettage History of hysteroscopy History of mastectomy (~2003) right Hx of tonsillectomy Family History Family History Mother Family history of elevated blood lipids Asthma Thyroid disease Sibling Thyroid disease Father Alcoholism Son Anxiety Social History Social History (Updated 06/30/25 @ 10:27 by Emelia Phillips) Social History: Caffeine-coffee/tea Smoking packs per day: 1.5 Smoking cigarettes per day: 30.0 Years smoked: 12 Smoking pack-years: 18.00 Smoking status: Former smoker Tobacco type: cigarettes Second hand tobacco smoke exposure: No Smoking end date: 08/21/79 Additional smoking assessment comments: [facility] 1 1/2PK/DAY/14YRS-QUIT 1979 Alcohol intake: never Substance use: never Substance use type: does not use Lack of Transportation: No Lack of Food: Never True Current Housing: I Have Housing Concerned About Future Housing: No Difficulty Paying Gas/Electric Bills: No Difficulty Paying for Meds: No Currently Unemployed: No Education: High School Diploma/GED Difficulty w/ Childcare or Family Care: No Living arrangements: with family Additional living arrangements comments: [place] - Occupation/Education: retired Gender identity (if verbalized by the patient): Female Spiritual care concerns: No Exam Narrative: APPEARANCE: Well appearing, no pain, no distress, well-nourished. HEAD: Posterior scalp hematoma EYES: PERRLA/EOMI, conjunctivae clear. NOSE: Normal no drainage EARS:TMS clear with good light reflex. THROAT: Pharynx clear, no exudate. NECK: Supple. No adenopathy, no masses. RESPIRATORY: Airway patent, respirations nonlabored. Clear to auscultation bilaterally, no rales, rhonchi, wheezing. CARDIOVASCULAR: Regular rate and rhythm without murmurs rubs or gallops. ABDOMINAL: Soft, nontender, nondistended, normal bowel sounds MUSCULOSKELETAL: Moves all extremities. Strength/ROM intact, No edema, No calf tenderness. NEURO: Alert. Cranial nerves II through XII intact. Good gait. Good coordination SKIN: Warm, dry. Normal Color Course Vital Signs Vital signs: Vital Signs Temperature 98 F 07/20/25 13:07 Pulse Rate 88 07/20/25 13:07 Respiratory Rate 20 07/20/25 13:07 Blood Pressure 169/89 H 07/20/25 13:07 Pulse Oximetry 98 07/20/25 13:07 Oxygen Delivery Room Air 07/20/25 13:07 Temperature 98 F 07/20/25 13:07 Pulse Rate 83 07/20/25 14:22 Respiratory Rate 13 07/20/25 14:22 Blood Pressure 155/74 H 07/20/25 14:22 Pulse Oximetry 97 07/20/25 14:22 Oxygen Delivery Room Air 07/20/25 13:07 Medical Decision Making MDM Narrative Medical decision making narrative: 75-year-old female present to the emergency department for evaluation after having a mechanical fall and striking her head. Patient denies a loss consciousness but patient was amnestic to the event. Patient's mental status returned back to its baseline. Head CT cervical spine CT were negative for acute abnormality. Patient is alert orientated and her baseline per family. Patient able to ambulate at baseline. When ambulating patient denies any new pain or injury. Patient and family are comfortable plan for discharge home. All questions concerns were addressed. Patient was well-appearing at time of discharge. Vital Signs Vital Signs: Vital Signs Temperature 98 F 07/20/25 13:07 Pulse Rate 88 07/20/25 13:07 Respiratory Rate 20 07/20/25 13:07 Blood Pressure 169/89 H 07/20/25 13:07 Pulse Oximetry 98 07/20/25 13:07 Oxygen Delivery Room Air 07/20/25 13:07 Temperature 98 F 07/20/25 13:07 Pulse Rate 83 07/20/25 14:22 Respiratory Rate 13 07/20/25 14:22 Blood Pressure 155/74 H 07/20/25 14:22 Pulse Oximetry 97 07/20/25 14:22 Oxygen Delivery Room Air 07/20/25 13:07 Lab Data Labs: Lab Results 07/20/25 Range/Units 13:12 POC Capillary Glucose 119 H (65-105) mg/dl Imaging Data Radiologist's impression: Impressions Cervical Spine CT 07/20/25 13:39 IMPRESSION: HEAD: 1. No acute intracranial findings. C-SPINE: 1. No acute fracture. Head CT 07/20/25 13:39 IMPRESSION: HEAD: 1. No acute intracranial findings. C-SPINE: 1. No acute fracture. Discharge Plan Discharge Clinical Impression: Head injury Patient Disposition: Home Condition: Stable Instructions: Antibiotic Form, Head Injury (ED) Additional Instructions: Follow head injury guidelines. Have close follow-up with your primary care physician. If you have any worsening symptoms then please call or return to the emergency department. Tylenol for pain control. Patient Language: Japanese Prescriptions: No Action cholecalciferol (vitamin D3) 1,000 unit capsule 1,000 unit PO BID multivitamin Tablet 1 tablet PO DAILY calcium carbonate 600 mg calcium (1,500 mg) tablet 600 mg PO DAILY ascorbate calcium (vitamin C) 500 mg tablet 500 mg PO DAILY vitamin B complex [B Complex-Vitamin B12] Tablet 1 tablet PO DAILY hydrocodone-acetaminophen 5-325 mg tablet 1 tablet PO Q6H PRN (Reason: pain) Qty: 16 0RF sulfamethoxazole-trimethoprim [Bactrim] 400-80 mg tablet 1 tablet PO HS Qty: 10 0RF omeprazole 40 mg capsule,delayed release(DR/EC) 40 mg PO BID Qty: 180 1RF amlodipine 10 mg tablet 10 mg PO DAILY Qty: 90 1RF atorvastatin 10 mg tablet 10 mg PO HS Qty: 90 1RF vilazodone [Viibryd] 40 mg tablet 40 mg PO DAILY Qty: 90 1RF Rx Instructions: must administer with a meal/food lorazepam 1 mg tablet 1 mg PO TID PRN (Reason: anxiety) Qty: 90 3RF Follow-up/Referrals: Samara Dan DO [Primary Care Provider, Family Practice]
[2025-07-20] MEDS: ACETAMINOPHEN 500 MG TABLET 1000 MG PO (14:21)
[2025-07-20 14:22] VITALS: BP 155/74; PULSE 83; RESP 13; O2SAT 97
== END 2025-07-20 15:06 | disposition home or self-care (01) ==
PROVIDERS: Emergency Provider Emergency Medicine; PCP Family Medicine
DX: S09.90XA Unspecified injury of head, initial encounter (principal); W00.0XXA Fall on same level due to ice and snow, initial encounter; N18.30 Chronic kidney disease, stage 3 unspecified; I12.9 Hypertensive chronic kidney disease with stage 1 through stage 4 chronic kidney disease, or unspecified chronic kidney disease; E78.5 Hyperlipidemia, unspecified; Z85.3 Personal history of malignant neoplasm of breast; E55.9 Vitamin D deficiency, unspecified; Z87.891 Personal history of nicotine dependence
CPT/HCPCS: 70450; 72125; 82948; 99284; A9270

== ENCOUNTER 2025-07-31 05:25 | Emergency (ER) | payer MEDICARE, SELFPAY ==
[2025-07-31] VITALS (24 sets, daily range): BP systolic 131–179; BP diastolic 70–95; PULSE 70–94; RESP 11–28; TEMP 37.3; O2SAT 87–99
--- NOTE | ~2025-07-31 | CT_ITS ---
CTA abdomen pelvis Clinical History: abdominal pain Technique: Helical images lung bases to pelvic outlet 100 mL Omnipaque 350 Coronal, sagittal reformats. Multiplanar MIPS CT images acquired with automatic exposure control for dose reduction DLP: 510 mGy-cm Comparison: PET/CT 06/05/2025 CT abdomen and pelvis 04/28/2025 Findings: CTA Findings: Abdominal aorta: No aneurysm or dissection. Atherosclerotic disease. Common iliac arteries: Patent. External iliac arteries: Patent. Hypogastric arteries: Patent. CFAs: Patent. Proximal visualized SFAs and profundas: Patent. Celiac: Patent. SMA: Patent. REAGAN: Patent. Renal arteries: Patent. Non-CTA findings: Lung bases: Mild scarring. Visualized heart and pericardium: Unremarkable. Liver: Enlarged. Steatosis. Probable cirrhosis. At least 2 simple cysts. Gallbladder: Unremarkable. Spleen: Unremarkable. Pancreas: Unremarkable. Adrenal glands: Unremarkable. Kidneys: Right kidney- No renal stones. No hydronephrosis. Left kidney- No renal stones. No hydronephrosis. Distal esophagus/stomach: Unremarkable. Small bowel loops: Normal caliber and wall thickness. Colon: Diverticula. Normal caliber and wall thickness. Normal RLQ appendix. Nodes: No enlarged nodes. Peritoneum: No ascites. No free air. Urinary bladder: Unremarkable. Uterus: Removed. Adnexa: No masses. Bones: No acute bony abnormality. Soft tissues: Right-sided rectus sheath hematoma, with decompression/additional adjacent extraperitoneal pelvic hematoma. No evidence of active contrast extravasation. IMPRESSION: 1. Right rectus sheath hematoma with adjacent extraperitoneal pelvic hematoma. 2. No evidence of active bleed. Reviewed, dictated and finalized at location [facility]
--- NOTE | 2025-07-31 05:30 | ECG_ITS ---
Test Date: 2025-07-31 05:41:54 Measurements Intervals [place] Rate: 87 P: 31 ME: 151 QRS: -18 QRSD: 78 T: 23 QT: 394 QTc: 475 Interpretive Statements SINUS RHYTHM POSSIBLE RIGHT VENTRICULAR CONDUCTION DELAY BASELINE ARTIFACT- II, III BORDERLINE ECG Compared to ECG 12/03/2024 16:38:15 NO SIGNIFICANT CHANGE Electronically Signed On 07-31-2025 06:17:13 [employer] ADVIS[employer] by Barak Connor D.O.
--- NOTE | 2025-07-31 05:36 | ED_ITS ---
HPI - Abdominal Pain General Chief Complaint: Abdominal Pain <Angel Medina DO - Last Filed: 07/31/25 06:43> Stated Complaint: pain in my side <Angel Medina DO - Last Filed: 07/31/25 06:43> Time Seen by Provider: 07/31/25 05:27 <Angel Medina DO - Last Filed: 07/31/25 06:43> Source: patient and family <DO Miguel Ángel Israel Last Filed: 07/31/25 06:43> Mode of arrival: ambulatory <Angel Medina DO - Last Filed: 07/31/25 06:43> Limitations: no limitations <Angel Medina DO - Last Filed: 07/31/25 06:43> History of Present Illness HPI narrative: Patient is a 75-year-old female presents to the emergency department accompanied by her complaining of abdominal pain. Patient notes that the pain started about 30 hours ago, right lower quadrant, feels sharp, sometimes radiates over to her left lower quadrant, seems to come and go, denies any history of this pain in the past. Denies nausea, vomiting, dysuria, urinary frequency, urinary urgency, history of kidney stones, fever. Patient admits to constipation and history of diverticulitis. <DO Miguel Ángel Israel Last Filed: 07/31/25 06:43> Related Data Home Medications: Home Medications ?Medication ?Instructions ?Recorded ?Confirmed ?Last Taken ?Type cholecalciferol (vitamin D3) 25 1,000 unit PO BID 07/2107/29/25 06/21/25 History mcg (1,000 unit) capsule multivitamin 1 tablet PO DAILY 01/14/20 1 09/29/24 06/21/25 History vitamin B complex (B 1 tablet PO DAILY 07/10/23 1 09/29/24 06/22/25 History Complex-Vitamin B12 tablet) calcium carbonate 600 mg PO DAILY 01/16/2505/1506/21/25 History ascorbate calcium (vitamin C) 500 500 mg PO DAILY 05/2207/29/25 06/24/25 History mg tablet <Angel Medina DO - Last Filed: 07/31/25 06:43> Allergies/Adverse Reactions: Allergies Allergy/AdvReac Type Severity Reaction Status Date / Time cefuroxime AdvReac Severe Hives Verified 07/29/25 10:18 <Angel Medina DO - Last Filed: 07/31/25 06:43> Review of Systems 2 Review of Systems: A 10 system review of systems was completed on the patient and is negative except for what is stated in the HPI. Nursing and ancillary documentation was reviewed. 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 Postmenopausal (~2003) BMI 27.0-27.9,adult Breast cancer Anemia BMI 26.0-26.9,adult Vitamin D deficiency Anxiety Hair thinning Fallen bladder Encounter for breast reconstruction following mastectomy <Angel Medina DO - Last Filed: 07/31/25 06:43> Surgical History Surgical History: Surgical History History of cataract surgery Status post arthroscopy of left knee surgery February 2020 H/O thumb surgery 2007 left thumb CMC arthroplasty - [place] H/O toe surgery Hx of LASIK H/O: hysterectomy (~2010) H/O dilation and curettage History of hysteroscopy History of mastectomy (~2003) right Hx of tonsillectomy <Angel Medina DO - Last Filed: 07/31/25 06:43> Family History Family History: Family History Mother Family history of elevated blood lipids Asthma Thyroid disease Sibling Thyroid disease Father Alcoholism Son Anxiety <Angel Medina DO - Last Filed: 07/31/25 06:43> Social History Social History: Social History Social History: Caffeine-coffee/tea Smoking packs per day: 1.5 Smoking cigarettes per day: 30.0 Years smoked: 12 Smoking pack-years: 18.00 Smoking status: Former smoker Tobacco type: cigarettes Second hand tobacco smoke exposure: No Smoking end date: 08/21/79 Additional smoking assessment comments: STATES 1 1/2PK/DAY/14YRS-QUIT 1979 Alcohol intake: never Substance use: never Substance use type: does not use Lack of Transportation: No Lack of Food: Never True Current Housing: I Have Housing Concerned About Future Housing: No Difficulty Paying Gas/Electric Bills: No Difficulty Paying for Meds: No Currently Unemployed: No Education: High School Diploma/GED Difficulty w/ Childcare or Family Care: No Living arrangements: with family Additional living arrangements comments: [place] - Occupation/Education: retired Gender identity (if verbalized by the patient): Female Spiritual care concerns: No <Angel Medina DO - Last Filed: 07/31/25 06:43> Exam 2 Narrative: CONST: No acute distress. Well nourished. HENMT: Head is normocephalic and atraumatic. Moist mucous membranes. No posterior oropharynx erythema. EYES: No scleral icterus. No conjunctival injection or pallor. PERRL. NECK: No meningeal signs. RESP: Able to speak in full sentences. Normal respiratory effort. CTAB. CARDIO: Regular rate. Regular rhythm. 2+ DP and radial pulses bilaterally. GI: Nondistended. Mild tenderness to palpation in the right lower quadrant and suprapubic region. No rebound or guarding or rigidity. Soft. : No CVA tenderness to palpation. SKIN: No rashes or lesions noted on exposed skin. NEURO: Oriented x3. Moves all extremities. EXTREM/MSK/BACK: No pedal edema. PSYCH: Normal affect. <Angel Medina DO - Last Filed: 07/31/25 06:43> Course Course Emergency Course: Patient informed of lab and imaging results. Rectus sheath hematoma with evidence of decompression. Discussed with General surgery and this is a non surgical issue, there is no active bleeding for IR. Patient may follow-up with PCP. She may take anti-inflammatories for pain. She has been instructed to take it easy around the home and just have her do some light walking. She is not to lift groceries or laundry. Discussed that engaging her core may cause worsening pain or bleeding. I have asked that she use a cane or walker to help her with getting in and out of bed/chairs. Patient is ambulatory in the ER without issue. She has no abdominal wall bruising. <Juvenal Connor MD - Last Filed: 07/31/25 08:54> Vital Signs Vital signs: Vital Signs Temperature 99.2 F 07/31/25 05:33 Pulse Rate 94 07/31/25 05:33 Respiratory Rate 16 07/31/25 05:33 Blood Pressure 179/95 H 07/31/25 05:33 Pulse Oximetry 97 07/31/25 05:33 Oxygen Delivery Room Air 07/31/25 05:33 Temperature 99.1 F 07/31/25 07:16 Pulse Rate 78 07/31/25 07:16 Respiratory Rate 15 07/31/25 07:16 Blood Pressure 144/71 H 07/31/25 07:16 Pulse Oximetry 92 07/31/25 07:23 Oxygen Delivery Nasal Cannula 07/31/25 07:23 Oxygen Flow Rate 1 07/31/25 07:23 <Angel Medina DO - Last Filed: 07/31/25 06:43> Vital Signs Temperature 99.2 F 07/31/25 05:33 Pulse Rate 94 07/31/25 05:33 Respiratory Rate 16 07/31/25 05:33 Blood Pressure 179/95 H 07/31/25 05:33 Pulse Oximetry 97 07/31/25 05:33 Oxygen Delivery Room Air 07/31/25 05:33 Temperature 99.1 F 07/31/25 07:16 Pulse Rate 78 07/31/25 07:16 Respiratory Rate 15 07/31/25 07:16 Blood Pressure 144/71 H 07/31/25 07:16 Pulse Oximetry 92 07/31/25 07:23 Oxygen Delivery Nasal Cannula 07/31/25 07:23 Oxygen Flow Rate 1 07/31/25 07:23 <Juvenal Connor MD - Last Filed: 07/31/25 08:54> [facility] Narrative Medical decision making narrative: Patient presents with the above complaint. Initial vitals are remarkable for no significant abnormalities. Physical examination as noted above. Plan discussed: laboratory analysis, imaging. Patient ordered IVF, morphine, NPO, continuous cardiac monitoring, continuous pulse oximetry. 07:00 - Patient signed out to oncoming physician Dr. Connor at shift change. < Angel Medina, DO - Last Filed: 07/31/25 06:43> Differential Diagnosis Differential Diagnosis: Appendicitis, diverticulitis, constipation, colitis, enteritis, mesenteric ischemia, ischemic colitis, pancreatitis, hepatobiliary pathology, ovarian cyst, ovarian torsion, ureterolithiasis, UTI, hernia, AAA. <Angel Medina, DO - Last Filed: 07/31/25 06:43> Lab Data [facility] Lab Attestation statement: I personally reviewed the patient's lab results. <Angel Medina, DO - Last Filed: 07/31/25 06:43> Lab results narrative: CBC reveals a hemoglobin 11.8. Coags are within normal limits. Lactic acid is 1.8. CMP reveals a potassium of 3.3, BUN of 17, glucose 141. Magnesium is 1.8. CRP is 0.9. Lipase is 49. <Angel Medina DO - Last Filed: 07/31/25 06:43> Result diagrams: 07/31/25 05:50 07/31/25 05:49 <Angel Medina, DO - Last Filed: 07/31/25 06:43> Labs: Lab Results 07/31/25 07/31/25 07/31/25 Range/Units 05:49 05:50 06:29 WBC 6.7 (4.5-10.0) K/mm3 RBC 3.78 L (4.2-5.4) M/mm3 Hgb 11.8 L (12.0-15.0) g/dL Hct 34.9 L (37.0-47.0) % MCV 92.3 (80-100) fl MCH 31.2 (26-34) pg MCHC 33.8 (32-36) g/dl RDW 13.9 (11.5-14.5) % Plt Count 247 (150-375) k/mm3 MPV 10.6 H (7.4-10.4) fl Immature Gran % (Auto) 0.3 (0-0.5) % Neut % (Auto) 54.6 (45.5-73.1) % Lymph % (Auto) 30.7 (18.3-44.2) % [place] % (Auto) 8.4 (2.6-8.5) % Eos % (Auto) 5.4 H (0-4.4) % Baso % (Auto) 0.6 (0.2-1.2) % Lymph # (Auto) 2.04 (0.9-3.2) K/mm3 [place] # (Auto) 0.6 (0.1-0.6) K/mm3 Eos # (Auto) 0.4 H (0-0.3) K/mm3 Baso # (Auto) 0.0 (0.0-0.1) K/mm3 Abs Immat Gran (auto) 0.02 (0.00-0.031) K/mm3 Absolute Neuts (auto) 3.6 (1.3-6.7) K/mm3 Absolute Nucleated RBC 0.000 (0.0-0.012) K/mm3 Nucleated RBC % 0.0 (0.0-0.2) % PT 12.9 (11.1-14.7) Seconds INR 1.0 APTT 25.2 (22.3-36.8) Seconds Sodium 138 (137-145) mmol/L Potassium 3.3 L (3.4-5.0) mmol/L Chloride 105 (98-107) mmol/L Carbon Dioxide 28 (22-30) mmol/L Anion Gap 5 (4-12) mmol/L BUN 19 H (7-17) mg/dL Creatinine 0.84 (0.7-1.0) mg/dL Estim Creat Clear Calc 55 ml/min Estimated GFR > 60 (59 - ) Glucose 141 H (65-110) mg/dL Lactic Acid 1.8 (0.7-2.0) mmol/L Calcium 9.0 (8.4-10.2) mg/dL Magnesium 1.8 (1.6-2.3) mg/dL Total Bilirubin 0.7 (0.2-1.3) mg/dL AST 31 (14-36) U/L ALT 26 (6-35) U/L Alkaline Phosphatase 90 (38-126) U/L C-Reactive Protein 0.9 (<1.0) mg/dL Total Protein 7.2 (6.3-8.2) g/dL Albumin 4.2 (3.5-5.1) g/dL Lipase 49 (23-300) U/L Urine Color Yellow (Yellow) Urine Appearance Clear (Clear) Urine pH 7.0 (5.0-9.0) Ur Specific [place] 1.014 (1.001-1.035) Urine Protein Trace (Negative) mg/dL Urine Glucose (UA) Negative (Negative) mg/dL Urine Ketones Negative (Negative) mg/dL Ur Blood (Man) Negative (Negative) Urine Nitrate Negative (Negative) Urine Bilirubin Negative (Negative) Urine Urobilinogen 0.2 (<2.0) mg/dL Leukocyte Esterase Rfl Trace H (Negative) CARO/UL Urine RBC 0-2 (0-2) /hpf Urine WBC 0-5 (0-3) /hpf Ur Squamous Epith Cells None seen (Few) /hpf Urine Bacteria None seen /hpf Urine Casts 0-2 <Angel Medina, DO - Last Filed: 07/31/25 06:43> Lab Results 07/31/25 07/31/25 07/31/25 Range/Units 05:49 05:50 06:29 WBC 6.7 (4.5-10.0) K/mm3 RBC 3.78 L (4.2-5.4) M/mm3 Hgb 11.8 L (12.0-15.0) g/dL Hct 34.9 L (37.0-47.0) % MCV 92.3 (80-100) fl MCH 31.2 (26-34) pg MCHC 33.8 (32-36) g/dl RDW 13.9 (11.5-14.5) % Plt Count 247 (150-375) k/mm3 MPV 10.6 H (7.4-10.4) fl Immature Gran % (Auto) 0.3 (0-0.5) % Neut % (Auto) 54.6 (45.5-73.1) % Lymph % (Auto) 30.7 (18.3-44.2) % [place] % (Auto) 8.4 (2.6-8.5) % Eos % (Auto) 5.4 H (0-4.4) % Baso % (Auto) 0.6 (0.2-1.2) % Lymph # (Auto) 2.04 (0.9-3.2) K/mm3 [place] # (Auto) 0.6 (0.1-0.6) K/mm3 Eos # (Auto) 0.4 H (0-0.3) K/mm3 Baso # (Auto) 0.0 (0.0-0.1) K/mm3 Abs Immat Gran (auto) 0.02 (0.00-0.031) K/mm3 Absolute Neuts (auto) 3.6 (1.3-6.7) K/mm3 Absolute Nucleated RBC 0.000 (0.0-0.012) K/mm3 Nucleated RBC % 0.0 (0.0-0.2) % PT 12.9 (11.1-14.7) Seconds INR 1.0 APTT 25.2 (22.3-36.8) Seconds Sodium 138 (137-145) mmol/L Potassium 3.3 L (3.4-5.0) mmol/L Chloride 105 (98-107) mmol/L Carbon Dioxide 28 (22-30) mmol/L Anion Gap 5 (4-12) mmol/L BUN 19 H (7-17) mg/dL Creatinine 0.84 (0.7-1.0) mg/dL Estim Creat Clear Calc 55 ml/min Estimated GFR > 60 (59 - ) Glucose 141 H (65-110) mg/dL Lactic Acid 1.8 (0.7-2.0) mmol/L Calcium 9.0 (8.4-10.2) mg/dL Magnesium 1.8 (1.6-2.3) mg/dL Total Bilirubin 0.7 (0.2-1.3) mg/dL AST 31 (14-36) U/L ALT 26 (6-35) U/L Alkaline Phosphatase 90 (38-126) U/L C-Reactive Protein 0.9 (<1.0) mg/dL Total Protein 7.2 (6.3-8.2) g/dL Albumin 4.2 (3.5-5.1) g/dL Lipase 49 (23-300) U/L Urine Color Yellow (Yellow) Urine Appearance Clear (Clear) Urine pH 7.0 (5.0-9.0) Ur Specific [place] 1.014 (1.001-1.035) Urine Protein Trace (Negative) mg/dL Urine Glucose (UA) Negative (Negative) mg/dL Urine Ketones Negative (Negative) mg/dL Ur Blood (Man) Negative (Negative) Urine Nitrate Negative (Negative) Urine Bilirubin Negative (Negative) Urine Urobilinogen 0.2 (<2.0) mg/dL Leukocyte Esterase Rfl Trace H (Negative) CARO/UL Urine RBC 0-2 (0-2) /hpf Urine WBC 0-5 (0-3) /hpf Ur Squamous Epith Cells None seen (Few) /hpf Urine Bacteria None seen /hpf Urine Casts 0-2 <Juvenal Connor MD - Last Filed: 07/31/25 08:54> Imaging Data Radiologist's impression: ITS Impressions Abdomen/Pelvis CTA 07/31/25 06:53 IMPRESSION: 1. Right rectus sheath hematoma with adjacent extraperitoneal pelvic hematoma. 2. No evidence of active bleed. <Angel Medina DO - Last Filed: 07/31/25 06:43> ITS Impressions Abdomen/Pelvis CTA 07/31/25 06:53 IMPRESSION: 1. Right rectus sheath hematoma with adjacent extraperitoneal pelvic hematoma. 2. No evidence of active bleed. <Juvenal Connor MD - Last Filed: 07/31/25 08:54> ECG Data EKG #1: Attestation: I personally reviewed and interpreted this ECG as follows: <Angel Medina DO - Last Filed: 07/31/25 06:43> ECG completion date: 07/31/25 <Angel Medina DO - Last Filed: 07/31/25 06:43> ECG completion time: 05:41 <Angel Medina DO - Last Filed: 07/31/25 06:43> Interpretation: Rate of 87, rhythm is sinus rhythm, no ST elevations or depressions, no significant change when compared to old EKG on file from December 03, 2024. < Angel Medina DO - Last Filed: 07/31/25 06:43> Discharge Plan Discharge Clinical Impression: Hematoma of rectus sheath <Angel Medina DO - Last Filed: 07/31/25 06:43> Patient Disposition: Other <Angel Medina DO - Last Filed: 07/31/25 06:43> Condition: Stable <Angel Medina DO - Last Filed: 07/31/25 06:43> Instructions: Antibiotic Form <Angel Medina DO - Last Filed: 07/31/25 06:43> Additional Instructions: Return to the emergency department if you develop severe abdominal pain, severe nausea and vomiting to the point where you are unable to keep down fluids, if you develop chest pain or difficulty breathing, blood in your stool, dizziness or fainting, or if you develop any other new or concerning symptoms as these could be signs of more serious medical illness. Try to stay well hydrated. Follow up with your primary care doctor. If they have concerns and you cannot get in, you may follow up with general surgery. Avoid lifting anything heavier than a gallon of milk. Walk around your home, avoid outdoor activities that could result in a fall. <Angel Medina DO - Last Filed: 07/31/25 06:43> Patient Language: [place]ian <Angel Medina DO - Last Filed: 07/31/25 06:43> Prescriptions: No Action cholecalciferol (vitamin D3) 1,000 unit capsule 1,000 unit PO BID multivitamin Tablet 1 tablet PO DAILY calcium carbonate 600 mg calcium (1,500 mg) tablet 600 mg PO DAILY venlafaxine 37.5 mg capsule,extended release 24hr 37.5 mg PO DAILY Qty: 90 1RF amoxicillin-pot clavulanate 875-125 mg tablet 1 tablet PO BID Qty: 20 0RF ascorbate calcium (vitamin C) 500 mg tablet 500 mg PO DAILY vitamin B complex [B Complex-Vitamin B12] Tablet 1 tablet PO DAILY hydrocodone-acetaminophen 5-325 mg tablet 1 tablet PO Q6H PRN (Reason: pain) Qty: 16 0RF omeprazole 40 mg capsule,delayed release(DR/EC) 40 mg PO BID Qty: 180 1RF amlodipine 10 mg tablet 10 mg PO DAILY Qty: 90 1RF atorvastatin 10 mg tablet 10 mg PO HS Qty: 90 1RF lorazepam 1 mg tablet 1 mg PO TID PRN (Reason: anxiety) Qty: 90 3RF <Angel Medina DO - Last Filed: 07/31/25 06:43> Follow-up/Referrals: Carlos Jay MD [Physician, General Surgery] Familia Abad MD [Primary Care Provider, Family Practice] - 1 Week <Angel Medina DO - Last Filed: 07/31/25 06:43>
--- OUTSIDE RECORDS SUMMARY | 2025-07-31 05:49 | XMS_ITS | Encounter Summary ---
Author Organization [facility] Address [address] [place] [address] Care Team Providers Care Nursing Center Tutor Name Role Phone Steve Jimenez MD Primary Care Provider [phone] Encounter Details Date Type Department Care Team (Late st Contact Info) Description 05/16/2025 Lab Requisition [facility] - Pathology Lab [address] [place] [id number] Marco Barcenas MD [address] [id number] Illness, unspecified Social History Tobacco [...] unspecified documented in this encounter Care Teams Nursing Center Tutor Relationship Specialty Start Date End Date Steve Jimenez MD [address] [place] [address] PCP - General 06/01/21 documented as of this encounter
--- OUTSIDE RECORDS SUMMARY | 2025-07-31 05:49 | XMS_ITS | Clinical Summary ---
Author Organization [facility] Address [address] [place] [address] Care Team Providers Care Manager Operational Name Role Phone Steve Jimenez MD Primary Care Provider [phone] Source Comments [facility],non-owned Affiliates and Associated Physician Practices is amultiple site organization consisting of ambulatory clinics and hospital sitesin [place], [place], [place] and [place]. This disclosure is being madepursuant to the Care Everywhere program and may not contain all information available regarding this patient. 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 06/26/2025 Lab Requisition [facility] - [facility]ology Lab [address] [place] [address] Garett Ag Illness, unspecified 05/20/2025 Lab Requisition [facility] - [facility]ology Lab [address] [place] [address] Mraco Barcenas MD Illness, unspecified 05/16/2025 Lab Requisition [facility] - [facility]ology Lab [address] [place] [address] Marco Barcenas MD Illness, unspecified 05/15/2025 Lab Requisition [facility] - [facility]ology Lab [address] [place] [address] Amador Herrera MD Mastitis without abscess; Other [...] PATHOLOGY TISSUE Routine 06/25/2025 12:5 6 PM EMS COORDINATOR Illness, unspecified FINE NEEDLE ASPIRATION (STL) Routine 06/25/2025 12:21 PM EMS COORDINATOR 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 SLIDE PREP HISTOLOGY Routine 05/20/2025 10:00 AM CDT Illness, unspecified FLOW CYTOMETRY BODY FLUID Routine 05/15/2025 8:02 AM CDT Mastitis without abscess Other abnormal and inconclusive findings on diagnostic imaging of breast from Last 3 Months Results * PATHOLOGY TISSUE (06/25/2025 12:56 PM EMS COORDINATOR) Case Report Surgical Pathology Report Case: [id number] Authorizing Provider: Garett Ag Collected: 06/25/2025 12:56 PM Ordering Location: [facility] - Received: 06/26/2025 01:30 PM Pathology Lab Pathologist: Stefani Saul MD Specimens: A) - Breast Mast Smpl, right breast mastectomy skin implant and capsule B) - Breast Capsule, Left breast implant and capsule 06/30/2025 11:17 AM [facility] Final Diagnosis A. 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 Breast, left implant and capsule, removal: - No evidence of malignancy 06/30/2025 11:17 AM [facility] PATH[facility] at 1117 EMS COORDINATOR Microscopic Description and Comment The right breast [...] is negative for malignancy. 06/30/2025 11:17 AM [facility] Clinical History History of breast carcinoma status post mastectomy with saline implant. Right breast shows clinical findings suspicious for anaplastic large cell lymphoma. 06/30/2025 11:17 AM [facility] Gross Description The requisition and [...] shell is inscribed Allergan 401 CC LOT [id number] style 115 with no defects. The inner aspect of the capsule is purple-martin with red-purple thickened areas. Sectioning shows predominantly beard-martin parenchyma with focal areas of hemorrhage in the thickened regions, but no discrete masses or firm areas are present. Predatory Animal Trapper sections are submitted as follows: A1 outside medical sales representative tissue adherent to implant shell, A2-A6 outside medical sales representative capsule, A7 skin including discoloration. [...] shell is inscribed Allergan 322 cc LOT [id number] style 115 with no defects. The inner aspect of the capsule is beard-white and smooth. The cut surface is beard-white with an average thickness of 0.1 cm and minimal variation. Predatory Animal Trapper sections are submitted as follows: B1 capsule, B2 tissue adherent to implant. Specimen processing times on 06/26/2025 are as follows: Time of excision: 1301 on 06/25/2025 Time specimen is placed in formalin: 1315 on 06/25/2025 Total cold ischemia time: 14 minutes AH 06/30/2025 11:17 AM [facility] Pathologist Location at [facility] 06/30/2025 11:17 AM [facility] Disclaimer The performance characteristics of all immunohistochemical and indirect immunofluorescence stains (if any) cited in this report were determined by the Histopathology Laboratory of [facility]. Some of these tests were developed by [...] the attending (teaching) pathologist. 06/30/2025 11:17 AM [facility] Embedded Images 06/30/2025 11:17 AM [facility] Pathology/Cytology SIMPLE MASTECTOMY / Unknown 06/25/2025 12:56 PM EMS COORDINATOR 06/26/2025 1:30 PM EMS COORDINATOR Miscellaneous samples (specimen) CAPSULAR CONTRACTURE OF BREAST / Unknown 06/25/2025 1:01 PM EMS COORDINATOR 06/26/2025 1:37 PM EMS COORDINATOR Garett Ag LAB - PATHOLOGY/CYTOLOGY ORDER ADRIANNE Final Result [facility] [address] [place], [place] [id number] [place] [address] * FINE NEEDLE ASPIRATION (STL) (06/25/2025 12:21 PM EMS COORDINATOR) Case Report Medical Cytology Report Case: [id number] Authorizing Provider: Garett Ag Collected: 06/25/2025 12:21 PM Ordering Location: [facility] - Received: 06/26/2025 01:38 PM Pathology Lab Pathologist: Bharath Ceja MD Specimen: Breast, Rt breast implant capsule fluid 06/30/2025 1:51 PM [facility] Specimen Adequacy Adequate cellularity for evaluation. 06/30/2025 1:51 PM [facility] Final Diagnosis Breast, right implant capsule fluid, cytology: - Rare highly atypical lymphocytes present, see comment 06/30/2025 1:51 PM [facility] PATH[facility]Y LAB at 1351 EMS COORDINATOR Clinical History History of breast carcinoma status post mastectomy with saline implant. Right breast shows clinical findings suspicious for anaplastic large cell lymphoma. 06/30/2025 1:51 PM [facility] Gross Description 1 Pap stained Thin Prep slide and 1 cell block from 3cc bloody fluid 06/30/2025 1:51 PM [facility] Microscopic Description The specimen is hypocellular and consists of scattered mixed inflammatory cells and rare enlarged atypical lymphocytes. Atypical lymphocytes show high NC ratio, hyperchromasia and clumped chromatin. Additional CD30 stain is positive in atypical enlarged lymphocytes. 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 Please also correlate with surgical pathology report, [id number]. 06/30/2025 1:51 PM [facility] Pathologist Location at [facility] 06/30/2025 1:51 PM [facility] Disclaimer The performance characteristics of all immunohistochemical and indirect immunofluorescence stains (if any) cited in this report were determined by the Histopathology Laboratory of [facility]. Some of these tests rely on the use of analyte-specific reagents and are subject to specific labeling requirements by the US Food and Drug Administration. Such tests were developed by the Histology Laboratory of [facility] and have not been cleared or approved [...] the attending (teaching) pathologist. 06/30/2025 1:51 PM [facility] Embedded Images 06/30/2025 1:51 PM [facility] Pathology/Cytolo gy ENTIRE BREAST / Unknown 06/25/2025 12:21 PM EMS COORDINATOR 06/26/2025 1:38 PM EMS COORDINATOR Garett Ag LAB - PATHOLOGY/CYTOLOGY ORDER ADRIANNE Final Result Performing Organization Address [facility] Co de Phone Number [facility] [address] [phone] * SLIDE PREP HISTOLOGY (05/20/2025 10:00 AM CDT) Pathologist [facility] Client Specimen ID # [id number] 06/04/2025 1:24 PM CDT [facility] Number of Blocks Received 0 06/04/2025 1:24 PM CDT [facility] Number of Slides 1 06/04/2025 1:24 PM CDT [facility] Number of Control Slides 1 06/04/2025 1:24 PM CDT [facility] Pathology/Cytolo gy 05/20/2025 10:00 AM CDT 05/20/2025 10:31 AM CDT Marco Barcenas MD LAB - PATHOLOGY/CYTOLOGY ORDERAB LES Final Result Performing Organization Address [facility] Co de Phone Number [facility] [address] [place] [address] * FLOW CYTOMETRY BODY FLUID (05/15/2025 8:02 AM CDT) Pathologist [facility] Case Report Flow Cytometry Case: [id number] Authorizing Provider: Amador Herrera Collected: 05/15/2025 08:02 AM MD Cole Ordering Location: [facility] - Received: 05/15/2025 12:54 PM Pathology Lab Pathologist: Maci Jason MD Specimen: Body Fluid , RIGHT BREAST SUSIE IMPLANT CYST ASPIRATION 05/15/2025 4:58 PM CDT [facility] Final Diagnosis Body fluid, right breast susie-implant cyst aspiration: - Low-viability specimen with no clonal B-cell or CD30+ T-cell population detected 05/15/2025 4:58 PM [facility] PATHOLOGY LAB at 1658 CDT Flow Cytometry Interpretation Viability: 54% B-cells: polytypic, kappa:lambda ratio 1.5:1 T-cells: no overt immunophenotypic aberrancy detected CD4:CD8 ratio 2.8:1, ~19% of overall events represent CD56+/CD16+ natural killer cells. A cytospin prepared from the flow cytometry specimen has been reviewed for air quality chemist purposes. Amongst inflammatory cells (lymphocytes, histiocytes, and neutrophils) are rare large mononuclear cells with prominent nucleoli (4 or 5 cells are seen in the cytospin). They appear histiocytoid with vacuolation. The lineage of these rare cells is uncertain, but anaplastic large cells vs. highly reactive histiocytes cannot be excluded. 05/15/2025 4:58 PM [facility] PATH[facility] Flow Cytometry Results Differential Result Comment Flow Cell Count /uL 1,260 Total Viability % 54 Lymphocytes % 67 Dim CD45 Region % 0 Monocytes % 1 Granulocytes % 32 05/15/2025 4:58 PM T [facility] Client Specimen ID # [id number] 05/15/2025 4:58 PM [facility] PATH[facility] Reason for test Mastitis without abscess Other abnormal and inconclusive findings on diagnostic imaging of breast 05/15/2025 4:58 PM [facility] PATH[facility] Number of markers 23 were [...] Flow CD57 A-22 TCR-AB A-23 TCR-GD A-8 [place]k+CD19+ A-9 Lambda+CD19+ 05/15/2025 4:58 PM [facility] PATH[facility] LAB Pathologist Location at [facility] 05/15/2025 4:58 PM [facility] PATH[facility] Disclaimer Test performed at [facility], [address] [place], [place], [address]. *The established laboratory minimum viability is 70%. [...] clinical testing. 05/15/2025 4:58 PM CDT [facility] Embedded Images 4:58 PM CDT [facility] Fluid BODY FLUID SPECIMEN / Unknown 05/15/2025 8:02 AM CDT 05/15/2025 12:54 PM CDT Amador Herrera MD LAB - PATHOLOGY/CYT OLOGY ORDERABLES Final Result Performing Organization Address City/State/[facility] Co de Phone Number [facility] [address] [place] [address], [facility] [phone] from Last 3 Months Insurance [employer] MEDICARE ADV SELF PAY NO INSURANCE Member Subscriber Plan / Payer (Ef fective for All Dates) Name:Ramin Morton Member ID:Not on file Relation to Subscriber:Not on file Name:RAMIN MORTON Subscriber ID:Not on file (Home) Address: [address] [place] [address] Payer ID:Not on file Group ID:Not on file Type:Self Pay Address: [place], [place] Care Teams Manager Operational Relationship Specialty Start Date End Date Steve Jimenez MD [address] [place] [address] PCP - General 06/01/21
--- OUTSIDE RECORDS SUMMARY | 2025-07-31 05:49 | XMS_ITS | Clinical Summary ---
Author Organization [facility] Joey beatty Nanci Address [address] [place] [address] Care Team Providers Care Auto Radiator Mechanic Name Role Phone Unavailable Primary Care Provider [...] Department Care Team Description 07/15/2025 1:00 PM GRISTMILLER Office Visit [facility] Oncology and Hematology [facility] [address] [place] [address] Alfredo Bang MD Anaplastic ALK-positive large cell lymphoma, unspecified body region (CMS/HCC) (Primary Dx) 06/12/2025 4:30 PM CDT Telephone Check Up [facility] Oncology and Hematology [facility] [address] [place] [address] Alfredo Bang MD Anaplastic ALK-positive large cell lymphoma, unspecified body region (CMS/HCC) (Primary Dx) 06/11/2025 External Device Data STL ABSTRACTION Provider, Abstract 06/11/2025 External Device Data STL ABSTRACTION Provider, Abstract 06/10/2025 External Device Data STL ABSTRACTION Provider, Abstract 06/06/2025 Abstract [facility] Oncology and Hematology [facility] [address] [place] [address] Alfredo Bang MD 06/05/2025 Orders Only [facility] Oncology and Hematology [facility] [address] [place] [address] Alfredo Bang MD 06/03/2025 3:00 PM CDT Office Visit [facility] Oncology and Hematology [facility] [address] [place] [address] Alfredo Bang MD Anaplastic ALK-positive large cell [...] Comments Blood Pressure 151/85 07/15/2025 1:03 PM GRISTMILLER Pulse 96 07/15/2025 1:01 PM GRISTMILLER Temperature 36.3 C (97.3 F) 07/15/2025 1:01 PM GRISTMILLER Respiratory Rate 15 07/15/2025 1:01 PM GRISTMILLER Oxygen Saturation 95% 07/15/2025 1:01 PM GRISTMILLER Inhaled Oxygen Concentration - - Weight 86 kg (189 lb 9.6 oz) 07/15/2025 1:01 PM GRISTMILLER Height 165.1 cm (5' 5) 06/03/2025 3:02 PM CDT Body Mass Index 31.55 06/03/2025 3:02 PM CDT Plan of Treatment Upcoming Encounters Date Type Department Care Team (Late st Contact Info) Description 09/16/2025 2:30 PM GRISTMILLER Office Visit [facility] Oncology and Hematology [facility] [address] [facility] [address] [place] [address] Alfredo Bang MD [address] [facility] [address] [place] [address] Health Maintenance Due Date Last [...]
--- OUTSIDE RECORDS SUMMARY | 2025-07-31 05:49 | XMS_ITS | Encounter Summary ---
Author Organization [facility] Address [address] [place] [address] Care Team Providers Care Electric Refrigerator Preparer Name Role Phone Steve Jimenez MD Primary Care Provider [phone] Encounter Details Date Type Department Care Team (Late st Contact Info) Description 06/26/2025 Lab Requisition [facility] - Pathology Lab [address] [place] [address] Garett Ag [address] [facility] [address] [place] [address] Neoplasm of uncertain behavior of [...] NEEDLE ASPIRATION (STL) Routine 06/25/2025 12:21 PM DRILL PRESSER 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 06/30/2025 1:51 PM [facility] Final Diagnosis Breast, right implant capsule fluid, cytology: - Rare highly atypical lymphocytes present, see comment 06/30/2025 1:51 PM [facility] PATHOLOGY LAB at [address] DRILL PRESSER Clinical History History of breast carcinoma status post mastectomy with saline implant. Right breast shows clinical findings suspicious for anaplastic large cell lymphoma. 06/30/2025 1:51 PM [facility] Gross Description 1 Pap stained Thin Prep slide and 1 cell block from 3cc bloody fluid 06/30/2025 1:51 PM [facility] PATH[facility] Microscopic Description The specimen is hypocellular and consists of scattered mixed inflammatory cells and rare enlarged atypical lymphocytes. Atypical lymphocytes show high NC ratio, hyperchromasia and clumped chromatin. Additional CD30 stain is positive in atypical enlarged lymphocytes. 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 Please also correlate with surgical pathology report, [id number]. 06/30/2025 1:51 PM [facility] Pathologist Location at [facility] 06/30/2025 1:51 PM [facility] Disclaimer The performance characteristics of all immunohistochemical and indirect immunofluorescence stains (if any) cited in this report were determined by the Histopathology Laboratory of [facility]. Some of these tests rely on the use of analyte-specific reagents and are subject to specific labeling requirements by the [place] Food and Drug Administration. Such tests were developed by the Histology Laboratory of [facility] and have not been cleared or approved [...] the attending (teaching) pathologist. 06/30/2025 1:51 PM [facility] PATH[facility] LAB Embedded Images 06/30/2025 1:51 PM [facility] PATH[facility] Pathology/Cytolo gy ENTIRE BREAST / Unknown 06/25/2025 12:21 PM DRILL PRESSER 06/26/2025 1:38 PM DRILL PRESSER Garett Ancelmo LAB - PATHOLOGY/CYTOLOGY ORDER ADRIANNE Final Result [facility] [address] [facility] 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
--- OUTSIDE RECORDS SUMMARY | 2025-07-31 05:49 | XMS_ITS | Encounter Summary ---
Author Organization [facility] Address [address] [place] [address] Care Team Providers Care Paper Baling Machine Operator Name Role Phone Steve Jimenez MD Primary Care Provider [phone] Encounter Details Date Type Department Care Team (Late st Contact Info) Description 06/26/2025 Lab Requisition [facility] - Pathology Lab [address] [place] [address] Garett Ag [address] [facility] [address] [place] [address] Illness, unspecified Social History Tobacco Use Types [...] PATHOLOGY TISSUE Routine 06/25/2025 12:5 6 PM TRIAL MANAGEMENT ASSOCIATE Illness, unspecified documented in this encounter Results * PATHOLOGY TISSUE (06/25/2025 12:56 PM TRIAL MANAGEMENT ASSOCIATE) Case Report Surgical Pathology Report Case: [id number] Authorizing Provider: Garett Ag Collected: 06/25/2025 12:56 PM Ordering Location: [facility] Physician [facility] - Received: 06/26/2025 01:30 PM Pathology Lab Pathologist: Stefani Saul MD Specimens: A) - Breast Mast Smpl, right breast mastectomy skin implant and capsule B) - Breast Capsule, Left breast implant and capsule 06/30/2025 11:17 AM [facility] PATH[facility] Final Diagnosis A. 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 Breast, left implant and capsule, removal: - No evidence of malignancy 06/30/2025 11:17 AM [facility] PATHOLOGY LAB at 1117 TRIAL MANAGEMENT ASSOCIATE Microscopic Description and Comment The right breast [...] is negative for malignancy. 06/30/2025 11:17 AM [facility] Clinical History History of breast carcinoma status post mastectomy with saline implant. Right breast shows clinical findings suspicious for anaplastic large cell lymphoma. 06/30/2025 11:17 AM [facility] PATH[facility] Gross Description The [...] red-martin tissue. The implant shell is inscribed [employer] 401 CC LOT [id number] style 115 with no defects. The inner aspect of the capsule is purple-martin with red-purple thickened areas. Sectioning shows predominantly beard-martin parenchyma with focal areas of hemorrhage in the thickened regions, but no discrete masses or firm areas are present. Survey Crew Chief sections are submitted as follows: A1 commercial sales representative tissue adherent to implant shell, A2-A6 commercial sales representative capsule, A7 skin including discoloration. [...] shell is inscribed Allergan 322 cc LOT [id number] style 115 with no defects. The inner aspect of the capsule is beard-white and smooth. The cut surface is beard-white with an average thickness of 0.1 cm and minimal variation. Survey Crew Chief sections are submitted as follows: B1 capsule, B2 tissue adherent to implant. Specimen processing times on 06/26/2025 are as follows: Time of excision: 1301 on 06/25/2025 Time specimen is placed in formalin: 1315 on 06/25/2025 Total cold ischemia time: 14 minutes AH 06/30/2025 11:17 AM [facility] PATH[facility] Pathologist Location at [facility] 06/30/2025 11:17 AM [facility] Disclaimer The performance characteristics of all immunohistochemical and indirect immunofluorescence stains (if any) cited in this report were determined by the Histopathology Laboratory of [facility]. Some of these tests were developed [...] the attending (teaching) pathologist. 06/30/2025 11:17 AM TRIAL MANAGEMENT ASSOCIATE [facility] Embedded Images 06/30/2025 11:17 AM TRIAL MANAGEMENT ASSOCIATE [facility] Pathology/Cytology SIMPLE MASTECTOMY / Unknown 06/25/2025 12:56 PM TRIAL MANAGEMENT ASSOCIATE 06/26/2025 1:30 PM TRIAL MANAGEMENT ASSOCIATE Miscellaneous samples (specimen) CAPSULAR CONTRACTURE OF BREAST / Unknown 06/25/2025 1:01 PM TRIAL MANAGEMENT ASSOCIATE 06/26/2025 1:37 PM TRIAL MANAGEMENT ASSOCIATE Garett Ag LAB - PATHOLOGY/CYTOLOGY ORDER ADRIANNE Final Result [facility] [address] [phone] documented in this encounter Visit Diagnoses Diagnosis Illness, unspecified documented in this encounter Care Teams Paper Baling Machine Operator Relationship Specialty Start Date End Date Steve Jimenez MD [address] [place] [address] PCP - General 06/01/21 documented as of this encounter
--- OUTSIDE RECORDS SUMMARY | 2025-07-31 05:49 | XMS_ITS | Encounter Summary ---
Author Organization [facility] Address [address] [place] [address] Care Team Providers Care Leather Stitcher Name Role Phone Steve Jimenez MD Primary Care Provider [phone] Encounter Details Date Type Department Care Team (Late st Contact Info) Description 05/15/2025 Lab Requisition [facility] - Pathology Lab [address] [place] [address] Amador Herrera MD [address] [facility] [address] [place] [id number] Mastitis without abscess; Other abnormal and [...] AM CDT) Case Report Flow Cytometry Case: [id number] Authorizing Provider: Amador Herrera Collected: 05/15/2025 08:02 AM MD Cole Ordering Location: [facility] - Received: 05/15/2025 12:54 PM Pathology Lab Pathologist: Maci Jason MD Specimen: Body Fluid , RIGHT BREAST SUSIE IMPLANT CYST ASPIRATION 05/15/2025 4:58 PM [facility] Final Diagnosis Body fluid, right breast susie-implant cyst aspiration: - Low-viability specimen with no clonal B-cell or CD30+ T-cell population detected 05/15/2025 4:58 PM [facility] at 1658 CDT Flow Cytometry Interpretation Viability: 54% B-cells: polytypic, kappa:lambda ratio 1.5:1 T-cells: no overt immunophenotypic aberrancy detected CD4:CD8 ratio 2.8:1, ~19% of overall events represent CD56+/CD16+ natural killer cells. A cytospin prepared from the flow cytometry specimen has been reviewed for engagement quality consultant purposes. Amongst inflammatory cells (lymphocytes, histiocytes, and neutrophils) are rare large mononuclear cells with prominent nucleoli (4 or 5 cells are seen in the cytospin). They appear histiocytoid with vacuolation. The lineage of these rare cells is uncertain, but anaplastic large cells vs. highly reactive histiocytes cannot be excluded. 05/15/2025 4:58 PM [facility] Flow Cytometry Results Differential Result Comment Flow Cell Count /uL 1,260 Total Viability % 54 Lymphocytes % 67 Dim CD45 Region % 0 Monocytes % 1 Granulocytes % 32 05/15/2025 4:58 PM [facility] Client Specimen ID # [id number] 05/15/2025 4:58 PM [facility] Reason for test Mastitis without abscess Other abnormal and inconclusive findings on diagnostic imaging of breast 05/15/2025 4:58 PM [facility] Number of markers [...] Flow CD57 A-22 TCR-AB A-23 TCR-GD A-8 [place]+CD19+ A-9 Lambda+CD19+ 05/15/2025 4:58 PM CDT [facility] Pathologist Location at [facility] 05/15/2025 4:58 PM CDT [facility] Disclaimer Test performed at [facility], [address] [place], [place], [address]. *The established laboratory minimum viability is 70%. [...] complexity clinical testing. 05/15/2025 4:58 PM CDT [facility] Embedded Images 4:58 PM CDT [facility] Fluid BODY FLUID SPECIMEN / Unknown 05/15/2025 8:02 AM CDT 05/15/2025 12:54 PM CDT Amador Herrera MD LAB - PATHOLOGY/CYT OLOGY ORDERABLES Final Result [facility] [facility] [place] [address], [facility] [phone] documented in this encounter Visit Diagnoses Diagnosis Mastitis without abscess Other abnormal and inconclusive findings on diagnostic imaging of breast documented in this encounter Care Teams Leather Stitcher Relationship Specialty Start Date End Date Steve Jimenez MD [address] [place] [address] PCP - General 06/01/21 documented as of this encounter
--- OUTSIDE RECORDS SUMMARY | 2025-07-31 05:49 | XMS_ITS | Encounter Summary ---
Author Organization [facility] Address [address] [address] Care Team Providers Care Natural Resource Specialist Name Role Phone Steve Jimenez MD Primary Care Provider [phone] Encounter Details Date Type Department Care Team (Late st Contact Info) Description 05/20/2025 Lab Requisition [facility] - Pathology Lab [address] [place] [address] Marco Barcenas MD [address] [address] Illness, unspecified Social History Tobacco [...] 10:00 AM CDT) Client Specimen ID # [id number] 06/04/2025 1:[address] [facility] Number of Blocks Received 0 06/04/2025 1:[address] [facility] Number of Slides 1 06/04/2025 1:[address] [facility] Number of Control Slides 1 06/04/2025 1:[address] [facility] Pathology/Cytolo gy 05/20/2025 10:00 AM CDT 05/20/2025 10:31 AM CDT Marco Barcenas MD LAB - PATHOLOGY/CYTOLOGY ORDERAB LES Final Result Performing Organization Address City/State/[facility] Co de Phone Number [facility] [address] [phone] documented in this encounter Visit Diagnoses Diagnosis Illness, unspecified documented in this encounter Care Teams Natural Resource Specialist Relationship Specialty Start Date End Date Steve Jimenez MD [address] [place] [address] PCP - General 06/01/21 documented as of this encounter
[2025-07-31 05:56] LABS: Hematocrit 34.9 % (37.0-47.0); Hemoglobin 11.8 g/dL (12.0-15.0); Immature Granulocyte Percent A 0.3 % (0-0.5); Lymphocytes Absolute Auto 2.04 K/mm3 (0.9-3.2); Mean Corpuscular HGB Conc 33.8 g/dl (32-36); Mean Corpuscular Hemoglobin 31.2 pg (26-34); Mean Corpuscular Volume 92.3 fl (80-100); Nucleated Red Blood Cells Absolute Auto 0.000 K/mm3 (0.0-0.012); Nucleated Red Blood Cells Perc 0.0 % (0.0-0.2); Platelet Count Result 247 k/mm3 (150-375); Red Blood Count 3.78 M/mm3 (4.2-5.4); White Blood Count 6.7 K/mm3 (4.5-10.0)
[2025-07-31] MEDS: SODIUM CHLORIDE 0.9% IV 1,000 ML 150 ML IV CONT (05:58)
[2025-07-31] MEDS: MORPHINE SULFATE (*CRX) 4 MG/ML INJ IV PUSH (05:59)
[2025-07-31 06:15] LABS: INR 1.0; Partial Thromboplastin Time 25.2 Seconds (22.3-36.8); Prothrombin Time 12.9 Seconds (11.1-14.7)
[2025-07-31 06:24] LABS: Alanine Aminotransferase 26 U/L (6-35); Albumin Level 4.2 g/dL (3.5-5.1); Alkaline Phosphatase 90 U/L (38-126); Anion Gap 5 mmol/L (4-12); Aspartate Amino Transferase 31 U/L (14-36); Bilirubin,Total 0.7 mg/dL (0.2-1.3); Blood Urea Nitrogen 19 mg/dL (7-17); CRP 0.9 mg/dL (<1.0); Calcium 9.0 mg/dL (8.4-10.2); Carbon Dioxide 28 mmol/L (22-30); Chloride 105 mmol/L (98-107); Estimated CRCL calculation 55 ml/min; Estimated Glomerular Filt Rate > 60; Glucose 141 mg/dL (65-110); Lipase 49 U/L (23-300); Magnesium 1.8 mg/dL (1.6-2.3); Potassium 3.3 mmol/L (3.4-5.0); Sodium 138 mmol/L (137-145); Total Protein 7.2 g/dL (6.3-8.2)
--- NOTE | 2025-07-31 06:33 | PC.NURSE ---
pt taken to CT
[2025-07-31 06:41] LABS: Add Urine Microscopic? YES; Appearance Urine Clear (Clear); Glucose Urine UA Negative (Negative); Leukocyte Esterase Ur Trace LEU/UL (Negative); Nitrate Urine Negative (Negative); Non Pathogenic Casts 0-2; Specific Grav Ur 1.014 (1.001-1.035)
--- NOTE | 2025-07-31 08:50 | PC.NURSE ---
patient ambulated to bathroom with a steady gait, no shortness of breath, dizziness, or complaints from patient.
== END 2025-07-31 09:20 | disposition home or self-care (01) ==
PROVIDERS: Student in an Organized Health Care Education/Training Program; Emergency Provider Emergency Medicine; PCP Family Medicine
DX: M79.81 Nontraumatic hematoma of soft tissue (principal); I12.9 Hypertensive chronic kidney disease with stage 1 through stage 4 chronic kidney disease, or unspecified chronic kidney disease; N18.30 Chronic kidney disease, stage 3 unspecified; E78.5 Hyperlipidemia, unspecified; E55.9 Vitamin D deficiency, unspecified; M47.814 Spondylosis without myelopathy or radiculopathy, thoracic region; F41.9 Anxiety disorder, unspecified; Z85.3 Personal history of malignant neoplasm of breast; Z87.891 Personal history of nicotine dependence; Z90.11 Acquired absence of right breast and nipple; R94.31 Abnormal electrocardiogram [ECG] [EKG]
CPT/HCPCS: 36415; 74174; 80053; 81001; 83605; 83690; 83735; 85025; 85610; 85730; 86140; 93005; 96361; 96374; 99284; J2270; J7030; Q9967